=== PATIENT | female | born 1970 | race Caucasian/White ===

== ENCOUNTER 2025-02-23 05:58 | Day surgery (SDC) | payer MEDICARE, MEDICAID, SELFPAY ==
[2025-02-23] VITALS (8 sets, daily range): BP systolic 86–113; BP diastolic 59–78; PULSE 62–93; RESP 16–18; TEMP 36.2–36.9; O2SAT 94–100; BMI 16.5
--- OUTSIDE RECORDS SUMMARY | 2025-02-23 06:07 | XMS RPT_ITS | CCD ---
Author Organization [facility] Care Team Providers Care Curtain Cutter Name Role Phone Ashok Bowdenrell Unavailable Unavailable PROVIDER, UNKNOWN Unavailable Unavailable Kal, Dalton Unavailable Unavailable Kal, Dalton Unavailable Unavailable PROVIDER, UNKNOWN Unavailable Unavailable Kal, Dalton Unavailable Unavailable TRANG RODRÍGUEZ Unavailable Unavailable PROVIDER, UNKNOWN Unavailable Unavailable Kal, Dalton Unavailable Unavailable Kal, Dalton Unavailable Unavailable PROVIDER, UNKNOWN Unavailable Unavailable TRANG RODRÍGUEZ Unavailable Unavailable AVA WADE~[id number] MAURO Attending U AVA Reveles~[id number] MAURO Attending U Dalton Alcantara MD Primary Care Provider Pcp ROCK DUST SPRAYER, No Primary Care Provider Unavailabl e Surendra Miller MD Unavailable [phone] Surendra Miller MD Unavailable [phone] Raheem Sarmiento MD Primary Care Provider SLIME, RAHEEM Referring Unavailable SLIME, RAHEEM Primary Care Unavailable SLIME, RAHEEM Primary Care Unavailable NING BARKSDALE Attending Unavailable CARRIE THOMAS Referring Unavailable ALEJANDRO PALMA Attending Unavailable SELF Referring Unavailable SLIME, RAHEEM Primary Care Unavailable SLIME, RAHEEM Attending Unavailable SLIME, RAHEEM Primary Care Unavailable Jose Manuel BRAYN - Tracy SANTOS Unavailable Jose Manuel BRAYN - Tracy SANTOS Unavailable Sammi Rivera Attending Physician [phone] Kenny Lala Attending Unavailable Sammi Dietrich Attending Unavailable DALTON BOWDEN Attending Unavailable KAL DALTON Referring Unavailable KAL, DALTON Primary Care Unavailable DALTON BOWDEN Attending Unavailable KAL, DALTON Primary Care Unavailable TRACY RICHARD Attending Unavailable KAL, DALTON Primary Care Unavailable KAL, DALTON Primary Care Unavailable KAL, DALTON Primary Care Unavailable JOSE MANUEL, TRACY Attending Unavailable KAL, DALTON Primary Care Unavailable JOSE MANUEL, TRACY Attending Unavailable KAL, DALTON Attending Unavailable KAL, DALTON Primary Care Unavailable KAL, DALTON Primary Care Unavailable JOSE MANUEL, TRACY Attending Unavailable JOSE MANUEL, TRACY Attending Unavailable KAL, DALTON Primary Care Unavailable JOSE MANUEL, TRACY Attending Unavailable KAL, DALTON Primary Care Unavailable JOSE MANUEL, TRACY Attending Unavailable KAL, DALTON Primary Care Unavailable JOSE MANUEL, TRACY Attending Unavailable KAL, DALTON Primary Care Unavailable KAL, DALTON Primary Care Unavailable JOSE MANUEL, TRACY Attending Unavailable JOSE MANUEL, TRACY Attending Unavailable KAL, DALTON Primary Care Unavailable BOESIGER, KATELYNN Attending Unavailable KAL, DALTON Primary Care Unavailable JOSE MANUEL, TRACY Referring Unavailable BOESIGER, KATELYNN Attending Unavailable KAL, DALTON Primary Care Unavailable KAL, DALTON Primary Care Unavailable MARTINEZ TIDWELL Attending Unavailable BOESIGER, KATELYNN Attending Unavailable KAL, DALTON Primary Care Unavailable BOESIGER, KATELYNN Attending Unavailable KAL, DALTON Primary Care Unavailable BOESIGER, KATELYNN Attending Unavailable KAL, DALTON Primary Care Unavailable BOESIGER, KATELYNN Attending Unavailable KAL, DALTON Primary Care Unavailable Allergies Allergy Classification Reported Allergen(s) Allergy Type Date of Onset Reaction(s) Facility Acetaminophen / oxyCODONE (1 source) Acetaminophen / oxyCODONE Drug Allergy 3 Nausea And Vomiting [facility] Aminoketones (1 source) buPROPion Drug Allergy 7 [facility] Amitriptyline (1 source) Amitriptyline Drug Allergy 5 Headache, Nausea Only [facility] Antihistamines (1 source) hydrOXYzine Drug Allergy 3 [facility] NSAIDs (1 source) meloxicam Drug Allergy 4 Headache [facility] Serotonin Reuptake Inhibitors (SSRIs) (1 source) Sertraline Drug Allergy 3 [facility] (20 sources) Amitriptyline; Translations: [Unknown] Drug Allergy 5 Nausea Only, Headache, Other: See Comments [facility] Repository (20 sources) Acetaminophen / oxyCODONE; Translations: [OXYCODONE-ACETAM INOPHEN] Drug Allergy 3 Vomiting, Nausea And Vomiting [facility] (20 sources) buPROPion Drug Allergy 7 Other [facility] Comment on above: mood changes (20 sources) hydrOXYzine Drug Allergy 3 [facility] (20 sources) Sertraline Drug Allergy 3 Other [facility] (10 sources) buPROPion; Translations: [BUPROPION HCL] Drug Allergy 7 Other: See Comments [facility] (20 sources) meloxicam Drug Allergy 4 Headache [facility] (1 source) hydrOXYzine Drug Allergy 5 Other [facility] (1 source) meloxicam Drug Allergy 5 Other [facility] Comment on above: Headache (1 source) oxyCODONE Drug Allergy 5 Vomiting [facility] (1 source) buPROPion Drug Allergy 5 [facility] Repository (1 source) hydrOXYzine Drug Allergy 5 [facility] Repository (1 source) meloxicam Drug Allergy 5 [facility] Repository (1 source) oxyCODONE Drug Allergy 5 [facility] Repository (1 source) Sertraline Drug Allergy 5 [facility] Repository Medications Current Medications Medication Drug Class(es) Dates Sig (Normalized) Sig (Original) [id number] 200 actuat albuterol 0.09 mg/actuat metered dose inhaler (3 sources) beta2-Adrenergic Agonist Start: 07-22-2023 take 2 puff(s) by inhalation every six hours as needed for wheezing albuterol 108 (90 Base) MCG/ACT inhaler Inhale 2 puffs every 6 hours as needed for wheezing. 3 each 0 07/22/2023 Active ALPRAZolam 0.25 mg oral tablet (9 sources) Benzodiazepine Start: 05-31-2024 End: 06-24-2024 take 1 tablet by mouth every eight hours as needed for anxiety and anxiety and anxiety ALPRAZolam (Xanax) 0.25 MG tablet Indications: Anxiety in acute stress reaction Take 1 tablet (0.25 mg) by mouth every 8 hours as needed for anxiety for up to 10 days. 30 tablet 06/14/2024 06/24/2024 Active Start: 05-12-2024 take 1 tablet by yulisa th every eight hours as needed for anxiety and anxiety and anxiety ALPRAZolam (Xanax) 0.25 MG tablet Indications: Anxiety in acute stress reaction Take 1 tablet (0.25 mg) by mouth every 8 hours as needed for anxiety. 30 tablet 05/12/2024 Active azithromycin 250 mg oral tablet (7 sources) Macrolide Antimicrobial Start: 01-12-2016 take 2 tablets by mouth once azithromycin (ZITHROMAX) 250 mg tablet Take 500 mg by mouth one time only. 01/12/2016 Active Budesonide-Formoter ol (20 sources) Corticosteroid, beta2-Adrenergic Agonist Start: 01-06-2025 Budesonide-Formote rol (Symbicort) 160-4.5 mcg/actuation HFA aerosol inhaler Active 2 NMA INHALATION Q12H January 06, 2025 12:00am Complies with drug therapy Start: 10-04-2024 take 2 puff(s) by mo uth twice daily Symbicort 160-4.5 MCG/ACT inhaler Indications: Chronic obstructive pulmonary disease, unspecified COPD type (HCC) Inhale 2 puffs 2 times daily. Rinse mouth with water after use to reduce aftertaste and incidence of candidiasis. Do not swallow. 30.6 g 1 10/04/2024 Active Start: 04-02-2024 End: 10-04-2024 Symbicort 160-4.5 MCG/ACT in haler Indications: Chronic obstructive pulmonary disease, unspecified COPD type (HCC) USE 2 INHALATIONS BY MOUTH IN THE MORNING AND 2 INHALATIONS BY MOUTH IN THE EVENING 30.6 g 1 04/02/2024 10/04/2024 Discontinued (Reorder) Start: 11-26-2023 End: 04-02-2024 take 2 puff(s) by inhalation in the morning Symbicort 160-4.5 MCG/ACT inhaler Indications: Chronic obstructive pulmonary disease, unspecified COPD type (HCC) Inhale 2 puffs in the morning and 2 puffs in the evening. 3 each 1 11/26/2023 04/02/2024 Discontinued Start: 02-04-2023 End: 11-26-2023 take 2 puff(s) by inhalation in the morning Symbicort 160-4.5 MCG/ACT inhaler 2 puffs in the morning and 2 puffs in the evening. 02/04/2023 11/26/2023 Discontinued (Reorder) Start: 10-25-2016 take 1 puff(s) by in halation twice daily budesonide-formoterol (SYMBICORT) 160-4.5 mcg/actuation inhaler Indications: Chronic obstructive pulmonary disease, unspecified COPD type (HCC) Inhale 1 Puff as instructed twice daily. 3 Inhaler 3 10/25/2016 Active Comment on above: Inhale 1 Puff as ins tructed twice daily. Cannabinoids (medical cannabis) (20 sources) Cannabinoids (medical cannabis) Take 1 each by mouth. Active clonazePAM 0.5 mg oral tablet (20 sources) Benzodiazepine Start: 11-18-19 End: 02-12-20 take 0.5 tablet by mouth twice daily as needed for anxiety clonazePAM (KlonoPIN) 0.5 MG tablet Indications: Posttraumatic stress disorder Take 0.5 tablets (0.25 mg) by mouth 2 times daily as needed for anxiety. 30 tablet 01/13/2025 Active Start: 10-18-2024 take 0.5 tablet by m outh twice daily as needed for anxiety clonazePAM (KlonoPIN) 0.5 MG tablet Indications: Posttraumatic stress disorder Take 0.5 tablets (0.25 mg) by mouth 2 times daily as needed for anxiety. 30 tablet 10/18/2024 Active Start: 09-17-2024 take 0.5 tablet by m outh twice daily as needed for anxiety clonazePAM (KlonoPIN) 0.5 MG tablet Indications: Generalized anxiety disorder with panic attacks Take 0.5 tablets (0.25 mg) by mouth 2 times daily as needed for anxiety. Do not start before September 17, 2024. 30 tablet 09/17/2024 Active Start: 08-20-2024 take 0.5 tablet by m outh twice daily as needed for anxiety clonazePAM (KlonoPIN) 0.5 MG tablet Indications: Generalized anxiety disorder with panic attacks Take 0.5 tablets (0.25 mg) by mouth 2 times daily as needed for anxiety. Do not start before August 20, 2024. 30 tablet 08/20/2024 Active Start: 07-23-2024 take 0.5 tablet by m outh twice daily as needed for anxiety clonazePAM (KlonoPIN) 0.5 MG tablet Indications: Generalized anxiety disorder with panic attacks Take 0.5 tablets (0.25 mg) by mouth 2 times daily as needed for anxiety. 30 tablet 07/23/2024 Active Start: 06-25-2024 take 0.5 tablet by m outh twice daily as needed for anxiety clonazePAM (KlonoPIN) 0.5 MG tablet Indications: Generalized anxiety disorder with panic attacks Take 0.5 tablets (0.25 mg) by mouth 2 times daily as needed for anxiety. 30 tablet 06/25/2024 Active DULoxetine 60 mg delayed release oral capsule (8 sources) Serotonin and Norepinephrine Reuptake Inhibitor Start: 10-25-2016 take 1 capsule by mouth once daily DULoxetine (CYMBALTA) 60 mg capsule Indications: Anxiety Take 1 capsule by mouth once daily. 90 capsule 3 10/25/2016 Active Comment on above: Take 1 capsule by mo [facility] once daily. ibuprofen 800 mg oral tablet (8 sources) Nonsteroidal Anti-inflammatory Drug Start: 10-11-2016 take 1 tablet by mouth every eight hours as needed ibuprofen (MOTRIN) 800 mg tablet Take 1 tablet by mouth every 8 hours as needed for Pain. 90 tablet 2 10/11/2016 Active Comment on above: Take 1 tablet by [facility] every 8 hours as needed for Pain. 200 actuat levalbuterol 0.045 mg/actuat metered dose inhaler (20 sources) beta2-Adrenergic Agonist Start: 01-06-2025 Levalbuterol Tartrate 45 mcg/actuation HFA aerosol inhaler Active 2 NMA INHALATION EVERY 4-6 HOURS as needed January 06, 2025 12:00am Complies with drug therapy Start: 07-05-2024 levalbuterol ( Xopenex) 45 MCG/ACT inhaler Indications: Chronic obstructive pulmonary disease, unspecified COPD type (HCC) USE 2 INHALATIONS BY MOUTH EVERY 6 HOURS NEEDED FOR WHEEZING OR SHORTNESS OF BREATH 45 g 2 07/05/2024 Active Start: 02-04-2024 levalbuterol ( Xopenex) 45 MCG/ACT inhaler Indications: Chronic obstructive pulmonary disease, unspecified COPD type (HCC) USE 2 INHALATIONS BY MOUTH EVERY 6 HOURS NEEDED FOR WHEEZING OR SHORTNESS OF BREATH 45 g 2 02/04/2024 Active Start: 07-18-2023 End: 11-26-2023 take 2 puff(s) by inhalation every six hours as needed for wheezing levalbuterol (Xopenex) 45 MCG/ACT inhaler Inhale 2 puffs every 6 hours as needed for wheezing. 15 g 2 10/03/2023 Active Start: 02-03-2023 levalbuterol ( Xopenex) 45 MCG/ACT inhaler Start: 10-25-2016 take 1-2 puff(s) by inhalation every four hours as needed levalbuterol tartrate HFA (XOPENEX HFA) 45 mcg/actuation inhaler Inhale 1-2 Puffs as instructed every 4 hours as needed. 3 Inhaler 3 10/25/2016 Active Comment on above: Inhale 1-2 Puffs as instructed every 4 hours as needed. levothyroxine sodium 0.075 mg oral capsule (20 sources) l-Thyroxine Start: 01-07-20 take 1 capsule by mouth once daily Levothyroxine 75 mcg capsule Active 75 ug PO daily January 06, 2025 12:00am Complies with drug therapy Start: 11-17-2024 End: 12-17-2024 take 1 tablet by mouth once daily before breakfast levothyroxine (Synthroid, Levoxyl) 88 MCG tablet Indications: Acquired hypothyroidism Take 1 tablet (88 mcg) by mouth every morning (before breakfast). 90 tablet 1 12/15/2024 Active Start: 09-01-2024 levothyroxine (Synthroid, Levoxyl) 75 MCG tablet Indications: Acquired hypothyroidism TAKE 1 TABLET BY MOUTH DAILY EXCEPT ON SUNDAYS TAKE 2 TABLETS 72 tablet 09/01/2024 Active Start: 06-16-2023 End: 05-27-2024 levothyroxine (Synthroid, Le voxyl) 75 MCG tablet Indications: Acquired hypothyroidism TAKE 1 TABLET BY MOUTH DAILY EXCEPT ON SUNDAYS TAKE 2 TABLETS 72 tablet 09/01/2024 Active Start: 02-21-2023 End: 04-08-2023 take 1 tablet by mouth once daily levothyroxine (Synthroid, Levoxyl) 75 MCG tablet Indications: Acquired hypothyroidism Take 1 tablet (75 mcg) by mouth daily. 90 tablet 1 04/08/2023 Active MEDICATION, NON-DATABASE (7 sources) MEDICATION, NON- DATABASE Marijuana card-takes pill form Active MEDICATION, NON- DATABASE Marijuana card-takes pill form 0 Active 24 hr metoprolol succinate 50 mg extended release oral tablet (20 sources) beta-Adrenergic Ian Start: 10-25-2016 End: 12-07-2024 take 1 tablet by mouth once daily metoprolol succinate XL (Toprol-XL) 50 MG 24 hr tablet Indications: Atrial tachycardia (HCC) TAKE 1 TABLET BY MOUTH DAILY 100 tablet 1 12/07/2024 Active Comment on above: Take 1 tablet by yulisa th once daily. mirtazapine 15 mg oral tablet (1 source) Start: 02-23-2024 End: 05-23-2024 take 1 tablet by mouth once daily mirtazapine (Remeron) 15 MG tablet Take 1 tablet (15 mg) by mouth Nightly. 90 tablet 02/23/2024 05/23/2024 Active montelukast 10 mg oral tablet (20 sources) Leukotriene Receptor Antagonist Start: 08-16-2016 End: 12-07-2024 take 1 tablet by mouth once daily montelukast (Singulair) 10 MG tablet Indications: Chronic obstructive pulmonary disease, unspecified COPD type (HCC) TAKE 1 TABLET BY MOUTH DAILY 100 tablet 1 12/07/2024 Active Comment on above: Take 1 tablet by yulisa th daily at bedtime. nabumetone 500 mg oral tablet (20 sources) Nonsteroidal Anti-inflammatory Drug Start: 10-25-2024 End: 12-27-2024 take 1 tablet by mouth twice daily as needed for pain nabumetone (Relafen) 500 MG tablet TAKE 1 TABLET BY MOUTH TWICE DAILY NEEDED FOR MILD PAIN (1-3) 60 tablet 12/27/2024 Active Start: 05-03-2024 End: 08-09-2024 take 1 tablet by mouth twice daily nabumetone (Relafen) 500 MG tablet TAKE 1 TABLET BY MOUTH TWICE DAILY 60 tablet 08/09/2024 Active Start: 02-23-2024 End: 03-15-2024 take 1 tablet by mouth twice daily nabumetone (Relafen) 500 MG tablet TAKE 1 TABLET BY MOUTH TWICE DAILY 60 tablet 03/15/2024 Active naproxen 500 mg oral tablet (20 sources) Nonsteroidal Anti-inflammatory Drug Start: 12-01-2015 End: 02-23-2024 take 1 tablet by mouth twice daily at mealtime naproxen (NAPROSYN) 500 mg tablet Take 500 mg by mouth two times a day with meals. 12/01/2015 Active pantoprazole 40 mg delayed release oral tablet (20 sources) Proton Pump Inhibitor Start: 02-03-2023 End: 12-07-2024 take 1 tablet by mouth once daily before breakfast pantoprazole (ProtoNix) 40 MG EC tablet Indications: Gastroesophageal reflux disease, unspecified whether esophagitis present TAKE 1 TABLET BY MOUTH EVERY MORNING BEFORE BREAKFAST 100 tablet 1 12/07/2024 Active PARoxetine hydrochloride 30 mg oral tablet (20 sources) Serotonin Reuptake Inhibitor Start: 10-18-2024 take 1 tablet by mouth once daily in the morning PARoxetine (Paxil) 30 MG tablet Indications: Major depressive disorder, recurrent episode, in partial remission , Posttraumatic stress disorder Take 1 tablet (30 mg) by mouth every morning. 10/18/2024 Active Start: 08-13-2024 take 1 tablet by yulisa th once daily in the morning PARoxetine (Paxil) 30 MG tablet Indications: Major depressive disorder, recurrent episode, moderate (HCC) , Acute stress reaction Take 1 tablet (30 mg) by mouth every morning. 90 tablet 3 08/13/2024 Active Start: 07-09-2024 take 1 tablet by yulisa th once daily in the morning PARoxetine (Paxil) 30 MG tablet Indications: Moderate episode of recurrent major depressive disorder (HCC) , Anxiety in acute stress reaction Take 1 tablet (30 mg) by mouth every morning. 30 tablet 07/09/2024 Active Start: 05-14-2024 End: 07-09-2024 take 1 tablet by mouth once daily in the morning PARoxetine (Paxil) 20 MG tablet Indications: Severe episode of recurrent major depressive disorder, without psychotic features (HCC) , Anxiety in acute stress reaction Take 1 tablet (20 mg) by mouth every morning. 90 tablet 1 05/14/2024 07/09/2024 Discontinued (Reorder) Start: 03-13-2023 End: 01-27-2024 take 1 tablet by mouth once daily in the morning PARoxetine (Paxil) 40 MG tablet TAKE 1 TABLET BY MOUTH EVERY MORNING 90 tablet 1 08/26/2023 Active Start: 02-20-2023 End: 04-21-2023 take 1 tablet by mouth once daily in the morning PARoxetine (Paxil) 20 MG tablet Take 1 tablet (20 mg) by mouth every morning. 30 tablet 1 02/20/2023 03/13/2023 Discontinued (Reorder) prednisoLONE acetate 10 mg/ml ophthalmic suspension (13 sources) Corticosteroid Start: 10-20-2023 prednisoLONE a cetate (PRED FORTE) 1 % ophthalmic suspension Use 1 Drop in the left eye three times a day. 10/20/2023 Active Start: 09-11-2023 End: 11-26-2023 prednisoLONE acetate (Pred-F orte) 1 % ophthalmic suspension 09/11/2023 11/26/2023 Discontinued (Med list cleanup) rosuvastatin calcium 10 mg oral tablet (20 sources) HMG-CoA Reductase Inhibitor Start: 01-25-2025 take 1 tablet by mouth once daily rosuvastatin (Crestor) 10 MG tablet Indications: Mixed hyperlipidemia TAKE 1 TABLET BY MOUTH DAILY 100 tablet 1 01/25/2025 Active Start: 01-06-2025 take 1 tablet by yulisa once daily Rosuvastatin 5 mg tablet Active 5 mg PO daily January 06, 2025 12:00am Complies with drug therapy Start: 11-17-2024 End: 11-17-2024 take 1 tablet by mouth once daily rosuvastatin (Crestor) 10 MG tablet Indications: Mixed hyperlipidemia Take 1 tablet (10 mg) by mouth daily. 90 tablet 1 11/17/2024 Active Start: 06-16-2023 End: 10-04-2024 take 1 tablet by mouth once daily rosuvastatin (Crestor) 5 MG tablet Indications: Mixed hyperlipidemia Take 1 tablet (5 mg) by mouth daily. 90 tablet 1 10/04/2024 Active Start: 02-21-2023 End: 04-08-2023 take 1 tablet by mouth once daily rosuvastatin (Crestor) 5 MG tablet Indications: Mixed hyperlipidemia Take 1 tablet (5 mg) by mouth daily. 90 tablet 1 04/08/2023 Active Sod Sulf-Pot Chloride-Mag Sulf (1 source) Start: 01-12-2025 take 1.479 tablets by mouth once Sod Sulf-Pot Chloride-Mag Sulf (Sutab) 1.479-0.188- 0.225 gram tablet Active 0 PO per package directions 24 0 January 12, 2025 12:00am PO PER PKG DIR Complies with drug therapy tamsulosin hydrochloride 0.4 mg oral capsule (8 sources) alpha-Adrenergic Ian Start: 01-23-2016 take 1 capsule by mouth once daily at bedtime tamsulosin ER (FLOMAX) 0.4 mg cp24 Take 1 capsule by mouth daily at bedtime. 0 01/23/2016 Active Comment on above: Take 1 capsule by mo [facility] daily at bedtime. tiotropium 0.018 mg inhalation powder (8 sources) Anticholinergic Start: 07-26-2016 take 1 capsule by inhalation once daily tiotropium (SPIRIVA WITH HANDIHALER) 18 mcg inhalation capsule Inhale 1 capsule as instructed once daily. 90 capsule 3 07/26/2016 Active Comment on above: Inhale 1 capsule as instructed once daily. traZODone hydrochloride 50 mg oral tablet (8 sources) Serotonin Reuptake Inhibitor Start: 06-17-2016 take 1 tablet by mouth once daily at bedtime traZODone (DESYREL) 50 mg tablet Take 1 tablet by mouth daily at bedtime. 30 tablet 3 06/17/2016 Active Comment on above: Take 1 tablet by yulisa daily at bedtime. Completed/Discontinued Medications Medication Drug Class(es) Dates Sig (Normalized) Sig (Original) calcium chloride 0.0014 meq/ml / potassium chloride 0.004 meq/ml / sodium chloride 0.103 meq/ml / sodium lactate 0.028 meq/ml injectable solution (3 sources) Start: 10-27-2023 End: 10-27-2023 take 50 mL intravenously every hour 50 mL/hr, IntraVENous, Continuous, Starting on Fri10/27/23 at 1145, Preprocedure, Upon admission to sameday - please start iv if patient does not have iv access. Start: 09-22-2023 End: 09-22-2023 lactated Ringer's (LR) infus ion gabapentin 600 mg oral tablet (20 sources) Anti-epileptic Agent Start: 10-01-2024 End: 02-07-2025 take 1 tablet by mouth three times daily gabapentin (Neurontin) 600 MG tablet Indications: Neuropathy TAKE 1 TABLET BY MOUTH 3 TIMES DAILY 270 tablet 12/07/2024 02/07/2025 Discontinued Start: 07-16-2024 take 1 tablet by yulisa th three times daily gabapentin (Neurontin) 600 MG tablet Indications: Neuropathy TAKE 1 TABLET BY MOUTH 3 TIMES DAILY 270 tablet 07/16/2024 Active Start: 09-29-2023 End: 02-23-2024 take 1 tablet by mouth three times daily gabapentin (Neurontin) 600 MG tablet Indications: Neuropathy TAKE 1 TABLET BY MOUTH 3 TIMES DAILY 270 tablet 04/26/2024 Active Start: 07-18-2023 End: 07-28-2023 take 1 tablet by mouth three times daily gabapentin (Neurontin) 600 MG tablet Take 1 tablet (600 mg) by mouth 3 times daily. 270 tablet 0 07/28/2023 Active Start: 05-14-2023 take 1 tablet by yulisa th three times daily gabapentin (Neurontin) 600 MG tablet TAKE 1 TABLET BY MOUTH 3 TIMES DAILY 270 tablet 0 05/14/2023 Active Start: 03-05-2023 take 1 tablet by yulisa th three times daily gabapentin (Neurontin) 600 MG tablet Take 1 tablet (600 mg) by mouth 3 times daily. 270 tablet 0 03/05/2023 Active Start: 12-27-2022 take 1 tablet by yulisa th three times daily gabapentin (Neurontin) 600 MG tablet Take 600 mg by mouth 3 times daily. 0 12/27/2022 Active Start: 10-04-2016 take 2 capsules by m outh three times daily gabapentin (NEURONTIN) 300 mg capsule Indications: Neuropathy Take 2 capsules by mouth three times daily. 180 capsule 2 10/04/2016 Active Comment on above: Take 2 capsules by m outh three times daily. ketorolac tromethamine 5 mg/ml ophthalmic solution (16 sources) Nonsteroidal Anti-inflammatory Drug, Cyclooxygenase Inhibitor Start: 10-27-2023 End: 10-27-2023 1 drop, Left Eye, See admin instructions, Starting on Fri10/27/23 at 1136, Preprocedure, Into the operative eye(s) every 5 minutes for 3 doses starting 30 minutes prior to surgery. Start: 10-20-2023 take 2 drop(s) into the eye(s) four times daily keTORolac (ACULAR) 0.5 % ophthalmic solution Use 2 Drops in the left eye four times daily. 10/20/2023 Active Start: 09-22-2023 End: 09-22-2023 ketorolac (Acular) 0.5 % oph thalmic solution 1 drop Start: 09-11-2023 End: 11-26-2023 ketorolac (Acular) 0.5 % oph thalmic solution 09/11/2023 11/26/2023 Discontinued (Med list cleanup) methylPREDNISolone 4 mg oral tablet (4 sources) Corticosteroid Start: 08-04-2024 End: 09-03-2024 methylPREDNISolone (Medrol Dospak) 4 MG tablets Take as directed on package. 21 tablet 08/04/2024 09/03/2024 Discontinued (Therapy completed) moxifloxacin 5 mg/ml ophthalmic solution (16 sources) Quinolone Antimicrobial Start: 10-27-2023 End: 10-27-2023 1 drop, Left Eye, See admin instructions, Starting on Fri10/27/23 at 1136, Preprocedure, Instill one drop in operative eye every 10 minutes starting 30 min prior to procedure. Start: 10-20-2023 take 3 drop(s) into the eye(s) three times daily moxifloxacin (VIGAMOX) 0.5 % ophthalmic solution Use 3 Drops in the left eye three times a day. 10/20/2023 Active Start: 09-22-2023 End: 09-22-2023 moxifloxacin (Vigamox) 0.5 % ophthalmic solution 1 drop Start: 09-11-2023 End: 11-26-2023 moxifloxacin (Vigamox) 0.5 % ophthalmic solution 09/11/2023 11/26/2023 Discontinued (Med list cleanup) phenylephrine hydrochloride 25 mg/ml ophthalmic solution (3 sources) alpha-1 Adrenergic Agonist Start: 10-27-2023 End: 10-27-2023 1 drop, Left Eye, See admin instructions, Starting on Fri10/27/23 at 1136, Preprocedure, To operative eye for 3 doses, every 10 minutes, starting 30 minutes prior to surgery Start: 09-22-2023 End: 09-22-2023 phenylephrine (Mydfrin) 2.5 % ophthalmic solution 1 drop proparacaine hydrochloride 5 mg/ml ophthalmic solution (3 sources) Local Anesthetic Start: 10-27-2023 End: 10-27-2023 1 drop, Left Eye, See admin instructions, Starting on Fri10/27/23 at 1136,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 79.0-98.0 [facility] Comment on above: Performed By: #### H EMOG, TSH4 ####[address] [place] [address] Platelet mean volume (PMV) 9.1 fL Normal 7.4-10.4 [facility] Comment on above: Performed By: #### H EMOG, TSH4 ####[address] [place] [address] Platelets 316 10*3/uL Normal 140-440 [facility] Comment on above: Performed By: #### H EMOG, TSH4 ####[address] [place] [address] WBC (Leukocytes) 11.9 10*3/uL High 3.6-10.7 [facility] Comment on above: Performed By: #### H EMOG, TSH4 ####[address] [place] [address] Thyroid Stim. Hormoneon 02-05 Thyroid Stim. Hormone 1.830 uU/mL Normal 0.358-3.740 [facility] Comment on above: Performed By: #### H EMOG, TSH4 ####[address] [place] [address] Vital Signs Date Time Vital Sign Value Performing Clinician Chelsea casillas 11-15-2024 08:33-0400 Body height 170.2 cm Tracy Richard APRN - BELT FIXER Work Phone: [facility] [employer] 11-15-2024 08:33-0400 Body mass index (BMI) [Ratio] 16.48 kg/m2 Tracy Richard APRN - BELT [employer]ER Work Phone: [facility] [employer] 11-15-2024 08:33-0400 Body weight 47.72 kg Tracy Richard APRN - BELT [employer]ER Work Phone: [facility] [employer] 11-15-2024 08:33-0400 Diastolic blood pressure 76 mm[Hg] Tracy Richard ROCK [employer]AYER - [employer]T [employer]ER Work Phone: [employer] 11-15-2024 08:33-0400 Heart rate 62 /min Tracy Richard [employer]ER - [employer] Work Phone: [facility] [employer] 11-15-2024 08:33-0400 SaO2% (BldA) [Mass fraction] 98 % Tracy Richard [employer]ER - [employer] Work Phone: [facility] [employer] 11-15-2024 08:33-0400 Systolic blood pressure 116 mm[Hg] Tracy Richard [employer]ER - [employer] Work Phone: [employer] [employer] 10-04-2024 13:38-0400 Body height 170.2 cm Tracy Richard [employer]ER - [employer] Work Phone: [facility] [employer] 10-04-2024 13:38-0400 Body mass index (BMI) [Ratio] 16.41 kg/m2 Tracy Richard [employer] - [employer] Work Phone: [employer] [employer] 10-04-2024 13:38-0400 Body weight 47.54 kg Tracy Richard [employer] - [employer] Work Phone: [employer] [employer] 10-04-2024 13:38-0400 Diastolic blood pressure 77 mm[Hg] Tracy Richard [employer] - [employer] Work Phone: [facility] [employer] 10-04-2024 13:38-0400 Heart rate 51 /min Tracy Richard [employer] - [employer] Work Phone: [facility] [employer] 10-04-2024 13:38-0400 SaO2% (BldA) [Mass fraction] 98 % Tracy Richard [employer] - [employer] Work Phone: [facility] [employer] 10-04-2024 13:38-0400 Systolic blood pressure 121 mm[Hg] Tracy Richard [employer]ER - [employer]T [employer] Work Phone: [facility] [employer] 09-13-2024 07:44-0400 Body height 170.2 cm Alejandro Palma MD Work Phone: [facility] 09-13-2024 07:44-0400 Body mass index (BMI) [Ratio] 16.43 kg/m2 Alejandro Palma MD Work Phone: [facility] 09-13-2024 07:44-0400 Body weight 47.58 kg Alejandro Palma MD Work Phone: [facility] 09-13-2024 07:44-0400 Respiratory rate 18 /min Alejandro Palma MD Work Phone: [facility] 09-03-2024 08:35-0400 Body height 170.2 cm Tracy Richard [employer]ER - [employer] Work Phone: [facility] [employer] 09-03-2024 08:35-0400 Body mass index (BMI) [Ratio] 16.38 kg/m2 Tracy Jose Manuel [employer]ER - [employer] Work Phone: [facility] [employer] 09-03-2024 08:35-0400 Body weight 47.45 kg Tracydesi Richard [employer]ER - [employer] Work Phone: [facility] [employer] 09-03-2024 08:35-0400 Diastolic blood pressure 80 mm[Hg] Tracy Richard [employer] - [employer] Work Phone: [facility] [employer] 09-03-2024 08:35-0400 Heart rate 58 /min Tracy Richard [employer]ER - [employer] Work Phone: [facility] [employer] 09-03-2024 08:35-0400 SaO2% (BldA) [Mass fraction] 97 % Tracy Jose Manuel [employer] - [employer] Work Phone: [facility] [employer] 09-03-2024 08:35-0400 Systolic blood pressure 132 mm[Hg] Tracydesi Richard [employer] - [employer] Work Phone: [facility] [employer] 08-06-2024 10:30-0400 Heart rate 96 /min Tracy Richard [employer] - [employer] Work Phone: [facility] [employer] 08-06-2024 10:04-0400 Body height 170.2 cm Tracy Richard [employer] - [employer] Work Phone: [facility] [employer] 08-06-2024 10:04-0400 Body mass index (BMI) [Ratio] 16.23 kg/m2 Tracy Richard [employer] - [employer] Work Phone: [facility] [employer] 08-06-2024 10:04-0400 Body weight 46.99 kg Tracy Richard [employer]ER - [employer] Work Phone: [facility] [employer] 08-06-2024 10:04-0400 Diastolic blood pressure 63 mm[Hg] Tracy Richard [employer]ER - [employer] Work Phone: [facility] [employer] 08-06-2024 10:04-0400 SaO2% (BldA) [Mass fraction] 98 % Tracy Richard [employer] - [employer] Work Phone: [facility] [employer] 08-06-2024 10:04-0400 Systolic blood pressure 102 mm[Hg] Tracy Richard [employer]ER - [employer] Work Phone: [facility] [employer] 08-04-2024 13:37-0400 Body height 170.2 cm Dalton Bowden MD Work Phone: [facility] [employer] 08-04-2024 13:37-0400 Body mass index (BMI) [Ratio] 16.04 kg/m2 Dalton Bowden MD Work Phone: [facility] [employer] 08-04-2024 13:37-0400 Body temperature 98.71 [degF] Dalton Bowden MD Work Phone: [facility] [employer] 08-04-2024 13:37-0400 Body weight 46.45 kg Dalton Bowden MD Work Phone: [facility] [employer] 08-04-2024 13:37-0400 Diastolic blood pressure 64 mm[Hg] Dalton Bowden MD Work Phone: [facility] [employer] 08-04-2024 13:37-0400 Heart rate 69 /min Dalton Bowden MD Work Phone: [facility] [employer] 08-04-2024 13:37-0400 SaO2% (BldA) [Mass fraction] 96 % Dalton Bowden MD Work Phone: [facility] [employer] 08-04-2024 13:37-0400 Systolic blood pressure 96 mm[Hg] Dalton Bowden MD Work Phone: [facility] [employer] 07-09-2024 07:49-0400 Body height 170.2 cm Tracy Richard [employer]ER - [employer] Work Phone: [facility] [employer] 07-09-2024 07:49-0400 Body mass index (BMI) [Ratio] 16.95 kg/m2 Tracy Richard [employer]ER - [employer] Work Phone: [facility] [employer] 07-09-2024 07:49-0400 Body weight 49.08 kg Tracy Richard [employer]ER - [employer] Work Phone: [facility] [employer] 07-09-2024 07:49-0400 Diastolic blood pressure 68 mm[Hg] Tracy Richard [employer]ER - [employer]T [employer] Work Phone: [facility] [employer] 07-09-2024 07:49-0400 Heart rate 84 /min Tracy Richard [employer]ER - [employer]T [employer] Work Phone: [facility] [employer] 07-09-2024 07:49-0400 SaO2% (BldA) [Mass fraction] 98 % Tracy Richard [employer] - [employer]T [employer] Work Phone: [facility] [employer] 07-09-2024 07:49-0400 Systolic blood pressure 109 mm[Hg] Tracy Richard [employer]ER - [employer] Work Phone: [facility] [employer] 06-11-2024 08:01-0500 Body height 170.2 cm Tracy Richard [employer]ER - [employer] Work Phone: [facility] [employer] 06-11-2024 08:01-0500 Body mass index (BMI) [Ratio] 16.79 kg/m2 Tracy Richard [employer] - [employer] Work Phone: [facility] [employer] 06-11-2024 08:01-0500 Body weight 48.63 kg Tracy Richard [employer] - [employer] Work Phone: [facility] [employer] 06-11-2024 08:01-0500 Diastolic blood pressure 88 mm[Hg] Tracy Richard [employer] - [employer] Work Phone: [facility] [employer] 06-11-2024 08:01-0500 Heart rate 69 /min Tracy Richard [employer] - [employer] Work Phone: [facility] [employer] 06-11-2024 08:01-0500 SaO2% (BldA) [Mass fraction] 98 % Tracy Richard [employer] - [employer] Work Phone: [facility] [employer] 06-11-2024 08:01-0500 Systolic blood pressure 136 mm[Hg] Tracy Richard [employer] - [employer] Work Phone: [facility] [employer] 05-14-2024 09:32-0500 Body height 170.2 cm Tracy Jose Manuel R[employer]ER - [employer] Work Phone: [facility] [employer] 05-14-2024 09:32-0500 Body mass index (BMI) [Ratio] 17.17 kg/m2 Tracy Jose Manuel [employer] - [employer] Work Phone: [facility] [employer] 05-14-2024 09:32-0500 Body weight 49.71 kg Tracy Richard R[employer]ER - [employer]T [employer]ER Work Phone: [employer] 05-14-2024 09:32-0500 Diastolic blood pressure 78 mm[Hg] Tracy Jose Manuel R[employer]ER - [employer] Work Phone: [facility] [employer] 05-14-2024 09:32-0500 Heart rate 62 /min Tracy Richard [employer] - [employer] Work Phone: [facility] [employer] 05-14-2024 09:32-0500 SaO2% (BldA) [Mass fraction] 98 % Tracy Jose Manuel [employer]ER - [employer] Work Phone: [facility] [employer] 05-14-2024 09:32-0500 Systolic blood pressure 125 mm[Hg] Tracy Richard R[employer]ER - [employer] Work Phone: [facility] [employer] 05-12-2024 08:29-0500 Diastolic blood pressure 68 mm[Hg] Tracy Richard [employer] - [employer] Work Phone: [facility] [employer] 05-12-2024 08:29-0500 Systolic blood pressure 126 mm[Hg] Tracy Richard [employer]ER - [employer]T [employer] Work Phone: [facility] [employer] 05-12-2024 08:06-0500 Body height 170.2 cm Tracy Richard [employer]ER - [employer] Work Phone: [facility] [employer] 05-12-2024 08:06-0500 Body mass index (BMI) [Ratio] 17.17 kg/m2 Tracy Richard [employer]ER - [employer] Work Phone: [facility] [employer] 05-12-2024 08:06-0500 Body weight 49.71 kg Tracy Richard R[employer]ER - [employer]T [employer]ER Work Phone: [facility] [employer] 05-12-2024 08:06-0500 Heart rate 92 /min Tracy Richard R[employer]ER - [employer]T [employer] Work Phone: [facility] [employer] 05-12-2024 08:06-0500 SaO2% (BldA) [Mass fraction] 98 % Tracy Richard [employer]ER - [employer]T [employer] Work Phone: [facility] [employer] 05-10-2024 08:12-0500 Body height 170.2 cm Tracy Richard R[employer]ER - [employer] Work Phone: [facility] [employer] 05-10-2024 08:12-0500 Body mass index (BMI) [Ratio] 16.57 kg/m2 Tracy Richard [employer] - [employer] Work Phone: [facility] [employer] 05-10-2024 08:12-0500 Body weight 47.99 kg Tracy Richard [employer]ER - [employer]T [employer] Work Phone: [facility] [employer] 05-10-2024 08:12-0500 Diastolic blood pressure 71 mm[Hg] Tracy Richard [employer] - [employer] Work Phone: [facility] [employer] 05-10-2024 08:12-0500 Heart rate 80 /min Tracy Richard [employer] - [employer] Work Phone: [facility] [employer] 05-10-2024 08:12-0500 SaO2% (BldA) [Mass fraction] 98 % Tracy Richard [employer] - [employer]T [employer]ER Work Phone: [facility] [employer] 05-10-2024 08:12-0500 Systolic blood pressure 118 mm[Hg] Tracy Richard [employer] - [employer] Work Phone: [facility] [employer] 02-23-2024 13:26-0500 Body height 170.2 cm Dalton Bowden MD Work Phone: [facility] [employer] 02-23-2024 13:26-0500 Body mass index (BMI) [Ratio] 16.1 kg/m2 Dalton Bowden MD Work Phone: [facility] [employer] 02-23-2024 13:26-0500 Body weight 46.63 kg Dalton Bowden MD Work Phone: [facility] [employer] 02-23-2024 13:26-0500 Diastolic blood pressure 71 mm[Hg] Dalton Bowden MD Work Phone: [facility] [employer] 02-23-2024 13:26-0500 Heart rate 62 /min Dalton Bowden MD Work Phone: [facility] [employer] 02-23-2024 13:26-0500 SaO2% (BldA) [Mass fraction] 97 % Dalton Bowden MD Work Phone: [facility] [employer] 02-23-2024 13:26-0500 Systolic blood pressure 112 mm[Hg] Dalton Bowden MD Work Phone: [facility] [employer] 11-26-2023 10:35-0400 Body height 170.2 cm Tracy Richard [employer]ER - [employer]ER Work Phone: [facility] [employer] 11-26-2023 10:35-0400 Body mass index (BMI) [Ratio] 15.98 kg/m2 Tracy Richard [employer]ER - [employer]T [employer]ER Work Phone: [facility] [employer] 11-26-2023 10:35-0400 Body weight 46.27 kg Tracy Richard [employer]ER - [employer]T [employer]ER Work Phone: [facility] [employer] 11-26-2023 10:35-0400 Diastolic blood pressure 64 mm[Hg] Tracy Richard [employer]ER - [employer]ER Work Phone: [facility] [employer] [employer] 11-26-2023 10:35-0400 Heart rate 68 /min Tracy Richard ROCK DUST SPRAYER - BELT FIXER Work Phone: [facility] [employer] 11-26-2023 10:35-0400 SaO2% (BldA) [Mass fraction] 96 % Tracy Jose Manuel ROCK DUST SPRAYER - BELT FIXER Work Phone: [facility] [employer] 11-26-2023 10:35-0400 Systolic blood pressure 96 mm[Hg] Tracy Richard ROCK DUST SPRAYER - BELT FIXER Work Phone: [facility] [employer] 11-24-2023 13:47-0400 Body mass index (BMI) [Ratio] 15.89 kg/m2 Ning Mancusoter ROCK DUST SPRAYER.BELT FIXER Work Phone: [facility] 11-24-2023 13:47-0400 Body weight 46.72 kg Ning Mancusoter ROCK DUST SPRAYER.BELT FIXER Work Phone: [facility] 10-27-2023 13:03-0400 Body temperature 97.2 [degF] Rosa Montiel MD Work Phone: [facility] [employer] 10-27-2023 13:03-0400 Diastolic blood pressure 73 mm[Hg] Rosa Montiel MD Work Phone: [facility] [employer] 10-27-2023 13:03-0400 Heart rate 65 /min Rosa Montiel MD Work Phone: [facility] [employer] 10-27-2023 13:03-0400 Respiratory rate 16 /min Rosa Montiel MD Work Phone: [facility] [employer] 10-27-2023 13:03-0400 SaO2% (BldA) [Mass fraction] 100 % Rosa Montiel MD Work Phone: [facility] [employer] 10-27-2023 13:03-0400 Systolic blood pressure 100 mm[Hg] Rosa Montiel MD Work Phone: [facility] [employer] 09-22-2023 08:45-0400 Diastolic blood pressure 83 mm[Hg] Rosa Montiel MD Work Phone: [facility] [employer] 09-22-2023 08:45-0400 Heart rate 50 /min Rosa Montiel MD Work Phone: [facility] [employer] 09-22-2023 08:45-0400 SaO2% (BldA) [Mass fraction] 99 % Rosa Montiel MD Work Phone: [facility] [employer] 09-22-2023 08:45-0400 Systolic blood pressure 110 mm[Hg] Rosa Montiel MD Work Phone: [facility] [employer] 09-22-2023 08:42-0400 Body temperature 97.3 [degF] Rosa Montile MD Work Phone: [facility] [employer] 09-22-2023 08:42-0400 Respiratory rate 16 /min Rosa Montiel MD Work Phone: [facility] [employer] 09-17-2023 10:02-0400 Body height 170.8 cm Dalton Bowden MD Work Phone: [facility] [employer] 09-17-2023 10:02-0400 Body mass index (BMI) [Ratio] 16.73 kg/m2 Dalton Bowden MD Work Phone: [facility] [employer] 09-17-2023 10:02-0400 Body weight 48.81 kg Dalton Bowden MD Work Phone: [facility] [employer] 09-17-2023 10:02-0400 Diastolic blood pressure 69 mm[Hg] Dalton Bowden MD Work Phone: [facility] [employer] 09-17-2023 10:02-0400 Heart rate 90 /min Dalton Bowden MD Work Phone: [facility] [employer] 09-17-2023 10:02-0400 SaO2% (BldA) [Mass fraction] 98 % Dalton Bowden MD Work Phone: [facility] [employer] 09-17-2023 10:02-0400 Systolic blood pressure 125 mm[Hg] Dalton Bowden MD Work Phone: [facility] [employer] 07-28-2023 09:37-0400 Diastolic blood pressure 69 mm[Hg] Dalton Bowden MD Work Phone: [facility] [employer] 07-28-2023 09:37-0400 Heart rate 66 /min Dalton Bowden MD Work Phone: [facility] [employer] 07-28-2023 09:37-0400 Systolic blood pressure 107 mm[Hg] Dalton Bowden MD Work Phone: [facility] [employer] 07-28-2023 09:07-0400 Body height 170.2 cm Dalton Bowden MD Work Phone: [facility] [employer] 07-28-2023 09:07-0400 Body mass index (BMI) [Ratio] 17.13 kg/m2 Dalton Bowden MD Work Phone: [facility] [employer] 07-28-2023 09:07-0400 Body weight 49.62 kg Dalton Bowden MD Work Phone: [facility] [employer] 07-28-2023 09:07-0400 SaO2% (BldA) [Mass fraction] 98 % Dalton Bowden MD Work Phone: [facility] [employer] 03-13-2023 09:22-0500 Body height 170.2 cm Dalton Bowden MD Work Phone: [facility] [employer] 03-13-2023 09:22-0500 Body mass index (BMI) [Ratio] 17.29 kg/m2 Dalton Bowden MD Work Phone: [facility] [employer] 03-13-2023 09:22-0500 Body weight 50.08 kg Dalton Bowden MD Work Phone: [facility] [employer] 03-13-2023 09:22-0500 Diastolic blood pressure 83 mm[Hg] Dalton Bowden MD Work Phone: [facility] [employer] 03-13-2023 09:22-0500 Heart rate 63 /min Dalton Bowden MD Work Phone: [facility] [employer] 03-13-2023 09:22-0500 SaO2% (BldA) [Mass fraction] 97 % Dalton Bowden MD Work Phone: [facility] [employer] 03-13-2023 09:22-0500 Systolic blood pressure 131 mm[Hg] Dalton Bowden MD Work Phone: [facility] [employer] 02-20-2023 13:15-0500 Body height 170.2 cm Dalton Bowden MD Work Phone: [facility] [employer] 02-20-2023 13:15-0500 Body mass index (BMI) [Ratio] 16.88 kg/m2 Dalton Bowden MD Work Phone: [facility] [employer] 02-20-2023 13:15-0500 Body weight 48.9 kg Dalton Bowden MD Work Phone: [facility] 02-20-2023 13:15-0500 Diastolic blood pressure 75 mm[Hg] Dlaton Bowden MD Work Phone: [facility] 02-20-2023 13:15-0500 Heart rate 57 /min Dalton Bowden MD Work Phone: [facility] [employer] 02-20-2023 13:15-0500 SaO2% (BldA) [Mass fraction] 98 % Dalton Bowden MD Work Phone: [facility] 02-20-2023 13:15-0500 Systolic blood pressure 121 mm[Hg] Dalton Bowden MD Work Phone: [facility] Encounters Encounter Date Encounter Type Care Provider Facility Start: 02-23-2025 ambulatory Kenny Erin Facility :[facility] Start: 02-11-2025 End: 02-11-2025 Refill Tracy Richard R[employer] D[employer]ER - BELT FIXER Work Phone: [facility] Comment on above: Posttraumatic stress disorder Start: 02-07-2025 End: 02-07-2025 Refill Sumaya Trentonal [employer] D[employer]ER - BELT FIXER Work Phone: [facility] Comment on above: Neuropathy Start: 02-04-2025 End: 02-04-2025 ambulatory TRACY RICHARD [facility] Start: 02-04-2025 End: 02-04-2025 Office outpatient visit 15 minutes Tracy Richard R[employer] D[employer]ER - BELT FIXER Work Phone: [facility] Comment on above: Moderate episode of recurrent major depressive disorder (CMS/HCC) (Primary Dx); Anxiety disorder, unspecified type; PTSD (post-traumatic stress disorder) Start: 02-04-2025 End: 02-04-2025 Office outpatient visit 25 minutes Tracy Richard [employer] D[employer]ER - BELT FIXER Work Phone: [facility] [place] Comment on above: Moderate episode of recurrent major depressive disorder (CMS/HCC) (Primary Dx); Anxiety disorder, unspecified type; PTSD (post-traumatic stress disorder) Start: 01-17-2025 End: 01-17-2025 Telephone encounter Tracy Richard R[employer] D[employer] SPR[employer]ER - BELT FIXER Work Phone: [facility] Comment on above: Other Start: 01-13-2025 End: 01-13-2025 Refill Tracy Richard [employer] D[employer]ER - BELT FIXER Work Phone: [facility] [place] Comment on above: Posttraumatic stress disorder Start: 01-12-2025 End: 01-12-2025 [facility] Start: 01-12-2025 End: 01-12-2025 ambulatory Sammi Dietrich [facility] Start: 12-26-2024 End: 12-27-2024 Refill Tracy Richard [employer] D[employer]ER - BELT FIXER Work Phone: [facility] [place] Start: 12-15-2024 End: 12-23-2024 Refill Dalton Bowden MD Work Phone: [facility] Comment on above: Posttraumatic stress disorder; Acquired hypothyroidism Start: 12-14-2024 End: 12-14-2024 ambulatory DALTON BOWDEN [facility] Start: 12-06-2024 End: 12-07-2024 Refill Tracy Richard [employer] D[employer] SPR[employer]ER - BELT FIXER Work Phone: [facility] Comment on above: Neuropathy; Gastroesophageal reflux disease, unspecified whether esophagitis present; Chronic obstructive pulmonary disease, unspecified COPD type (HCC); Atrial tachycardia (HCC) Start: 11-19-2024 End: 11-29-2024 ambulatory Jennie Ricardo RN [facility] Communication Start: 11-19-2024 End: 11-29-2024 Patient encounter procedure Jennie Ricardo RN [facility] Start: 11-17-2024 End: 11-17-2024 Refkelly Bowden MD Work Phone: [facility] Comment on above: Mixed hyperlipidemia Start: 11-15-2024 End: 11-15-2024 Assay of hemosiderin, quant Tracy Richard ROCK DUST SPRAYER - BELT FIXER Work Phone: [facility] Start: 11-15-2024 End: 11-15-2024 Patient encounter procedure Tracy Zaid Jose Manuel ROCK DUST SPRAYER - BELT FIXER Work Phone: [facility] Comment on above: Routine general medi farhad examination at health care facility (Primary Dx); Atrial tachycardia (HCC); Chronic obstructive pulmonary disease, unspecified COPD type (HCC); Moderate persistent asthma without complication; Moderate episode of recurrent major depressive disorder (HCC); Anxiety disorder, unspecified type; PTSD (post-traumatic stress disorder); Chronic pain syndrome; Neuropathy; Acquired hypothyroidism; Mixed hyperlipidemia; Screening for diabetes mellitus; Screening for colon cancer; Screening mammogram for breast cancer; Symptoms consistent with irritable bowel syndrome Start: 11-15-2024 End: 11-15-2024 ambulatory TRACY RICHARD [facility] Start: 11-15-2024 End: 11-15-2024 Encounter for general adult medical examination without abnormal findings [facility] Start: 10-29-2024 End: 11-19-2024 Telephone encounter Tracy Zaid Jose Manuel ROCK D[employer]ER - BELT FIXER Work Phone: [facility] Comment on above: Other Start: 10-18-2024 End: 10-18-2024 ambulatory [facility] Start: 10-04-2024 End: 10-04-2024 Office outpatient visit 25 minutes Tracy Richard ROCK DUST SPRAYER - BELT FIXER Work Phone: [facility] Comment on above: Moderate episode of recurrent major depressive disorder (HCC) (Primary Dx); Anxiety disorder, unspecified type; PTSD (post-traumatic stress disorder); Mixed hyperlipidemia; Chronic obstructive pulmonary disease, unspecified COPD type (HCC); Atrial tachycardia (HCC); Gastroesophageal reflux disease, unspecified whether esophagitis present Start: 10-04-2024 End: 10-04-2024 ambulatory [facility] Start: 09-14-2024 End: 09-14-2024 ambulatory [facility] Start: 09-13-2024 End: 09-13-2024 Patient encounter procedure Alejandro Palam MD Work Phone: [facility] Comment on above: Trochanteric bursiti s of right hip (Primary Dx); Hip abductor tendonitis, right Start: 09-13-2024 End: 09-13-2024 ambulatory ALEJANDRO PALMA [facility] Start: 09-03-2024 End: 09-03-2024 Office outpatient visit 25 minutes Tracy Richard ROCK DUST SPR[employer]ER - BELT FIXER Work Phone: [facility] Comment on above: Moderate episode of recurrent major depressive disorder (HCC) (Primary Dx); Anxiety disorder, unspecified type; PTSD (post-traumatic stress disorder) Start: 09-03-2024 End: 09-03-2024 ambulatory TRACY [facility] Start: 08-13-2024 End: 08-13-2024 ambulatory KATELYNN [facility] Start: 08-06-2024 End: 08-06-2024 Office outpatient visit 15 minutes Tracy Richard ROCK DUST SPR[employer]ER - BELT FIXER Work Phone: [facility] Comment on above: Moderate episode of recurrent major depressive disorder (HCC) (Primary Dx); Anxiety disorder, unspecified type; PTSD (post-traumatic stress disorder); Pleurisy Start: 08-06-2024 End: 08-06-2024 Office outpatient visit 25 minutes Tracy Richard ROCK DUST SPRAYER - BELT FIXER Work Phone: [facility] Comment on above: Moderate episode of recurrent major depressive disorder (HCC) (Primary Dx); Anxiety disorder, unspecified type; PTSD (post-traumatic stress disorder); Pleurisy Start: 08-06-2024 End: 08-06-2024 ambulatory TRACYDesi RICHARD [facility] Start: 08-04-2024 End: 08-04-2024 Office outpatient visit 15 minutes Dalton Bowden MD Work Phone: [facility] Comment on above: Pleurisy (Primary Dx ); Viral syndrome Start: 08-04-2024 End: 08-04-2024 ambulatory DALTON BOWDEN [facility] Start: 07-23-2024 End: 07-23-2024 ambulatory [facility] Start: 07-20-2024 End: 08-20-2024 ambulatory Raheem Sarmiento MD Work Phone: [facility] Start: 07-20-2024 End: 08-20-2024 Patient encounter procedure Raheem Sarmiento MD Work Phone: [facility] Start: 07-10-2024 End: 07-10-2024 ambulatory [facility] Start: 07-10-2024 End: 07-10-2024 Patient encounter procedure Sail[facility] Start: 07-09-2024 End: 07-09-2024 ambulatory [facility] Start: 07-09-2024 End: 07-09-2024 Office outpatient visit 25 minutes Tracy Richard ROCK DUST SPRAYER - BELT FIXER Work Phone: [facility] Comment on above: Moderate episode of recurrent major depressive disorder (HCC) (Primary Dx); Anxiety in acute stress reaction; PTSD (post-traumatic stress disorder) Start: 07-09-2024 End: 07-09-2024 ambulatory TRACY RICHARD [facility] Start: 06-25-2024 End: 06-25-2024 [facility] Start: 06-21-2024 End: 06-21-2024 Astrid Bowden MD Work Phone: [facility] Comment on above: Mixed hyperlipidemia Start: 06-17-2024 End: 06-21-2024 Telephone encounter Rajwinder Matt [facility] Comment on above: Referral Start: 06-11-2024 End: 06-11-2024 Office outpatient visit 15 minutes Tracy Richard ROCK DUST SPRAYER - BELT FIXER Work Phone: [facility] Comment on above: Moderate episode of recurrent major depressive disorder (HCC) (Primary Dx); Anxiety in acute stress reaction; PTSD (post-traumatic stress disorder) Start: 06-11-2024 End: 06-11-2024 Office outpatient visit 25 minutes Tracy Richard ROCK DUST SPRAYER - BELT FIXER Work Phone: [facility] [place] Comment on above: Moderate episode of recurrent major depressive disorder (HCC) (Primary Dx); Anxiety in acute stress reaction; PTSD (post-traumatic stress disorder) Start: 06-11-2024 End: 06-11-2024 ambulatory TRACY RICHARD [facility] Start: 05-31-2024 End: 05-31-2024 ambulatory KATELYNN HANSON [facility] Start: 05-27-2024 End: 05-27-2024 Astrid Bowden MD Work Phone: [facility] [employer] Comment on above: Acquired hypothyroid ism Start: 05-14-2024 End: 05-14-2024 Office outpatient visit 25 minutes Tracy Richard ROCK DUST SPRAYER - BELT FIXER [facility] Comment on above: Severe episode of re current major depressive disorder, without psychotic features (HCC) (Primary Dx); Anxiety in acute stress reaction; PTSD (post-traumatic stress disorder) Start: 05-14-2024 End: 05-14-2024 ambulatory [facility] Start: 05-12-2024 End: 05-13-2024 Orders Only Tracy Richard ROCK DUST SPRAYER - BELT FIXER Work Phone: [facility] Start: 05-12-2024 End: 05-12-2024 Office outpatient visit 25 minutes Tracy Richard ROCK DUST SPRAYER - BELT FIXER Work Phone: [facility] Comment on above: Anxiety in acute str ess reaction (Primary Dx); Moderate episode of recurrent major depressive disorder (HCC); PTSD (post-traumatic stress disorder) Start: 05-12-2024 End: 05-12-2024 ambulatory [facility] Start: 05-11-2024 End: 05-12-2024 Telephone encounter Dalton Bowden MD Work Phone: [facility] Comment on above: Release of Informati on Start: 05-10-2024 End: 05-10-2024 Office outpatient visit 15 minutes Tracy Richard ROCK DUST SPRAYER - BELT FIXER Work Phone: [facility] Comment on above: Hip pain, chronic, r ight (Primary Dx); Family history of rheumatoid arthritis Start: 05-10-2024 End: 05-10-2024 ambulatory [facility] Start: 04-15-2024 End: 04-15-2024 Telephone encounter Tammy Carias PA-C Work Phone: [facility] Comment on above: Appointment Start: 04-02-2024 End: 04-02-2024 Refill Tracy Richard ROCK DUST SPRAYER - BELT FIXER Work Phone: [facility] Comment on above: Chronic obstructive pulmonary disease, unspecified COPD type (HCC) Start: 03-31-2024 End: 04-01-2024 Refill Tracy Richard ROCK DUST SPRAYER - BELT FIXER Work Phone: [facility] Comment on above: Mixed hyperlipidemia Start: 03-15-2024 End: 03-15-2024 Subsequent hospital visit by physician Dalton Bowden MD Work Phone: [facility] Comment on above: Right hip pain Start: 03-15-2024 End: 03-15-2024 ambulatory [facility] Start: 03-14-2024 End: 03-15-2024 Refill Dalton Bowden MD Work Phone: [facility] Start: 02-23-2024 End: 02-23-2024 Office outpatient visit 25 minutes Dalton Bowden MD Work Phone: [facility] Comment on above: Neuropathy (Primary Dx); Right hip pain; Weight loss; Primary insomnia; Screening exam for skin cancer; Refused influenza vaccine Start: 02-23-2024 End: 02-23-2024 ambulatory [facility] Start: 02-20-2024 End: 02-20-2024 ambulatory Krystle Copeland RN [facility] Start: 02-20-2024 End: 02-20-2024 Patient encounter procedure Krystle Copeland RN [facility] Start: 02-20-2024 End: 02-20-2024 Refill Tracy Richard APRN - BELT FIXER Work Phone: [facility] Start: 01-27-2024 End: 01-27-2024 Refill Dalton Bowden MD Work Phone: [facility] Start: 12-30-2023 End: 12-30-2023 Refill Dalton Bowden MD Work Phone: [facility] Start: 11-26-2023 End: 11-26-2023 Office outpatient visit 25 minutes Tracy Richard ROCK DUST SPRAYER - BELT FIXER Work Phone: [facility] Comment on above: Moderate episode of recurrent major depressive disorder (HCC) (Primary Dx); Anxiety disorder, unspecified type; Acquired hypothyroidism; Mixed hyperlipidemia; Chronic obstructive pulmonary disease, unspecified COPD type (HCC); Chronic pain syndrome Start: 11-25-2023 End: 11-25-2023 Telephone encounter Raheem Sarmiento MD Work Phone: [facility] Comment on above: Patient Question Start: 11-24-2023 End: 11-24-2023 ambulatory [facility] Facility:[facility] Start: 11-24-2023 End: 11-24-2023 Patient encounter procedure Ning Pinedamilo RAMIREZBELT FIXER Work Phone: [facility] Comment on above: Encounter for screen ing for lung cancer (Primary Dx); Former tobacco use; Chronic obstructive pulmonary disease, unspecified COPD type (HCC) Start: 11-24-2023 End: 11-24-2023 ambulatory [facility] Facility:[facility] Start: 11-13-2023 ambulatory Carrie Abraham am, PA-C Work Phone: [facility] Start: 11-11-2023 Telephone encounter Raheem razo MD Work Phone: [facility] Comment on above: Orders (ORTHO) Start: 11-05-2023 End: 11-05-2023 Patient encounter procedure Raheem Sarmiento MD Work Phone: [facility] Comment on above: Pain of right hip (P rimary Dx); Screening for depression; Chronic obstructive pulmonary disease, unspecified COPD type (HCC); Neuropathy; Other fatigue; Hyperlipidemia, unspecified hyperlipidemia type; Insomnia, unspecified type; Tobacco use Start: 11-05-2023 End: 11-05-2023 Telemedicine consultation with patient Raheem Sarmiento MD Work Phone: [facility] Start: 11-05-2023 End: 11-05-2023 ambulatory [facility] Facility:[facility] Start: 10-27-2023 End: 10-27-2023 Subsequent hospital visit by physician Rosa Montiel MD Work Phone: [facility] Start: 10-21-2023 End: 10-21-2023 Astrid Bowden MD Work Phone: [facility] Start: 10-03-2023 End: 10-03-2023 Refill Dalton Bowden MD Work Phone: [facility] Start: 09-22-2023 End: 09-22-2023 Subsequent hospital visit by physician Rosa Montiel MD Work Phone: [facility] Start: 09-17-2023 End: 09-17-2023 Office outpatient visit 25 minutes Dalton Bowden MD Work Phone: [facility] Comment on above: Chronic obstructive pulmonary disease, unspecified COPD type (HCC) (Primary Dx); Mitral valve prolapse; Neuropathy; Mixed stress and urge urinary incontinence; Acquired hypothyroidism; Mixed hyperlipidemia; Screening for colon cancer; Encounter for screening mammogram for malignant neoplasm of breast Start: 08-26-2023 Refill Dalton Bowden MD Work Phone: [facility] Start: 08-10-2023 Refill Dalton Bowden MD Work Phone: [facility] Start: 07-28-2023 End: 07-28-2023 Office outpatient visit 10 minutes Dalton Bowden MD Work Phone: [facility] Comment on above: Neoplasm of uncertai n behavior of skin of forearm (Primary Dx) Start: 06-03-2023 Telephone encounter David ross MD Work Phone: [facility] Comment on above: Appointment Start: 05-20-2023 Telephone encounter David ross MD Work Phone: [facility] Comment on above: Cancelled Appointmen t Start: 05-08-2023 Telephone encounter Surendra barroso MD Work Phone: [facility] Start: 04-08-2023 Refill Dalton Bowden MD Work Phone: [facility] Communication Comment on above: Mixed hyperlipidemia ; Acquired hypothyroidism Start: 03-21-2023 Refill Dalton Bowden MD Work Phone: [facility] Comment on above: Acquired hypothyroid ism (Primary Dx); Mixed hyperlipidemia Start: 03-13-2023 End: 03-13-2023 Office outpatient visit 25 minutes Dalton Bowden MD Work Phone: [facility] Comment on above: Moderate episode of recurrent major depressive disorder (HCC) (Primary Dx); Anxiety; Acquired hypothyroidism; Mixed hyperlipidemia; Mixed stress and urge urinary incontinence; Screening for colon cancer Start: 03-07-2023 Telephone encounter Leslie Saenz DO Work Phone: [facility] Comment on above: Missed Appointment ( # 1 no show, no letter) Start: 02-20-2023 Orders Only Dalton Bowden MD Work Phone: [facility] Start: 02-20-2023 End: 02-20-2023 Initial preventive medicine new patient 40-64yrs Dalton Bowden MD Work Phone: [facility] Comment on above: Annual physical exam (Primary Dx); Neuropathy; Chronic obstructive pulmonary disease, unspecified COPD type (HCC); Weight loss; Anxiety; Tobacco use; Screening for deficiency anemia; Screening for diabetes mellitus; Screening for lipid disorders Start: 02-20-2023 End: 02-20-2023 Patient encounter procedure Dalton Bowden MD Work Phone: [facility] Work Phone: Start: 10-04-2019 Patient encounter procedure [id number] MAURO [facility] Start: 08-31-2019 Patient encounter procedure [id number] [facility] Start: 03-26-2017 Ambulatory [facility] Start: 02-20-2017 Ambulatory TRANG RODRÍGUEZ [facility] Start: 12-12-2016 Ambulatory Dalton Bowden [facility] Start: 12-02-2016 Ambulatory Dalton Bowden [facility] Procedures Date Procedure Procedure Detail Performing Clinician Start: 12-14-2024 Lipid 1995 panel - Serum or Plasma Dalton Bowden MD Work Phone: Start: 12-14-2024 Thyrotropin [Units/volume] in Serum or Plasma Dalton Bowden MD Work Phone: Start: 11-15-2024 Lipid 1995 panel - Serum or Plasma Dalton Bowden MD Work Phone: Start: 11-15-2024 Thyrotropin [Units/volume] in Serum or Plasma Dalton Bowden MD Work Phone: Start: 09-13-2024 Radex hip unilateral with pelvis 1 view Alejandro Palma MD Work Phone: Start: 06-11-2024 Follow-up visit Follow-up TRACY RICHARD Start: 05-12-2024 C-reactive protein Tracy Richard ROCK DUST SPRAYER - BELT FIXER Work Phone: Start: 05-12-2024 Complete blood count with white cell differential, automated Tracy Richard ROCK DUST SPRAYER - BELT FIXER Work Phone: Start: 05-12-2024 Comprehensive metabolic panel Tracy Richard ROCK DUST SPRAYER - BELT FIXER Work Phone: Start: 11-24-2023 Lipid 1996 panel - Serum or Plasma Ning Barksdale ROCK DUST SPRAYER.BELT FIXER Work Phone: Start: 11-24-2023 Thyrotropin [Units/volume] in Serum or Plasma Tracy Richard ROCK DUST SPRAYER - BELT FIXER Work Phone: Start: 11-11-2023 Adult depression screening assessment Raheem Sarmiento MD Work Phone: Start: 03-21-2023 Lipid 1996 panel - Serum or Plasma Dalton Bowden MD Work Phone: Start: 03-21-2023 Thyrotropin [Units/volume] in Serum or Plasma Dalton Bowden MD Work Phone: Start: 02-20-2023 Comprehensive metabolic panel Dalton Bowden MD Work Phone: Start: 02-20-2023 Lipid panel Dalton Bowden MD Work Phone: Start: 02-20-2023 End: 02-20-2023 Thyrotropin [Units/volume] in Serum or Plasma Dalton Bowden MD Work Phone: Start: 02-20-2023 Lipid 1996 panel - Serum or Plasma Dalton Bowden MD Work Phone: Start: 12-06-2016 H/O: hysterectomy History of hysterectomy Dalton Portillo Work Phone: Start: 03-06-2016 Lipid 1996 panel - Serum or Plasma Leslieharlan Saenz Work Phone: Plan of Treatment Date Care Activity Detail Author Start: 11-23-2047 RSV Immunization for Adults (1 - 1-dose 75+ series) RSV Immunization for Adults (1 - 1-dose 75+ series) [facility] Start: 2032 RSV Immunization aged 60 or older (1 - 1-dose 60+ series) RSV Immunization aged 60 or older (1 - 1-dose 60+ series) [facility] Start: 12-14-2029 Lipid panel Lipid Panel [facility] Start: 11-15-2029 Lipid panel Lipid Panel [facility] Start: 11-23-2028 Lipid panel Lipid Screening [facility] Start: 03-21-2028 Lipid panel [facility] Start: 02-21-2028 Lipid panel Lipid Panel [facility] Start: 05-12-2027 Diabetes Screening Diabetes Screening [facility] Start: 11-23-2026 Diabetes Screening Diabetes Screening [facility] Start: 06-29-2026 DTaP/Tdap/Td Vaccines (2 - Td or Tdap) DTaP/Tdap/Td Vaccines (2 - Td or Tdap) [facility] Start: 06-29-2026 Urine microalbumin profile DTaP,Tdap,Td Vaccine (2 - Td or Tdap) [facility] Start: 02-20-2026 Diabetes Screening Diabetes Screening [facility] Start: 12-14-2025 Thyroid stimulating hormone measurement TSH Level [facility] Start: 11-15-2025 Thyroid stimulating hormone measurement TSH Level [facility] Start: 05-09-2025 End: 05-09-2025 Patient encounter procedure 05/09/2025 9:00 AM EST [facility] [address] [facility] [place] [address] Tracy Richard, ROCK DUST SPRAYER - BELT FIXER [address] [facility] [place] [address] [facility] Start: 05-07-2025 Hepatitis B Vaccines (1 of 3 - 19+ 3-dose series) Hepatitis B Vaccines (1 of 3 - 19+ 3-dose series) [facility] Comment on above: Postponed from 11/23/1991 (Patient Refus ed) Start: 05-07-2025 Hepatitis C screening Hepatitis C Screening [facility] Comment on above: Postponed from 1990 (Patient Refus ed) Start: 05-07-2025 HIV screening HIV Screening [facility] Comment on above: Postponed from 1972 (Patient Refus ed) Start: 05-07-2025 Pneumococcal Vaccine: 50+ Years (1 of 2 - PCV) Pneumococcal Vaccine: 50+ Years (1 of 2 - PCV) [facility] Comment on above: Postponed from 11/23/1991 (Patient Refus ed) Start: 04-05-2025 Depression Monitoring Depression Monitoring [facility] Start: 03-06-2025 Depression Monitoring Depression Monitoring [facility] Start: 02-19-2025 COVID-19 Vaccine ( season) COVID-19 Vaccine ( season) [facility] Comment on above: Postponed from 12/07/2023 (Patient Refus ed) Start: 02-04-2025 End: 02-04-2025 Telemedicine consultation with patient 02/04/2025 1:00 PM EDT [facility] [address] [facility] [place] [address] Tracy Richard, ROCK DUST SPRAYER - BELT FIXER [address] [facility] [place] [address] [facility] Start: 01-08-2025 Depression Monitoring Depression Monitoring [facility] Start: 12-14-2024 End: 12-14-2024 Clinical Support 12/14/2024 8:30 AM EDT Clinical Support [address] [place] [address] [facility] Start: 12-12-2024 Depression Monitoring Depression Monitoring [facility] Start: 12-06-2024 COVID-19 Vaccine () COVID-19 Vaccine () [facility] Start: 12-06-2024 Influenza vaccination [facility] Start: 11-23-2024 Diabetes mellitus screening Diabetes Screening [facility] Start: 11-23-2024 Thyroid stimulating hormone measurement TSH Level [facility] Start: 11-15-2024 End: 11-15-2025 Comprehensive metabolic 1998 panel - Serum or Plasma Comprehensive metabolic panel Lab Routine Atrial tachycardia (HCC) Chronic obstructive pulmonary disease, unspecified COPD type (HCC) Moderate persistent asthma without complication Moderate episode of recurrent major depressive disorder (HCC) Anxiety disorder, unspecified type PTSD (post-traumatic stress disorder) Chronic pain syndrome Neuropathy Acquired hypothyroidism Mixed hyperlipidemia Symptoms consistent with irritable bowel syndrome Screening for diabetes mellitus Expected: 11/15/2024 (Approximate), Expires: 11/15/2025 [facility] Comment on above: Expected: 11/15/2024 (Approximate), Expi res: 11/15/2025 Start: 11-15-2024 End: 01-15-2026 DBT Breast - bilateral screening Bilateral screening mammogram with tomosynthesis Imaging Routine Screening mammogram for breast cancer Expected: 11/15/2024, Expires: 01/15/2026 [facility] Comment on above: Expected: 11/15/2024, Expires: Start: 11-15-2024 End: 11-15-2025 Lipid 1996 panel - Serum or Plasma Lipid panel Lab Routine Mixed hyperlipidemia Expected: 11/15/2024 (Approximate), Expires: 11/15/2025 [facility] Comment on above: Expected: 11/15/2024 (Approximate), Expi res: 11/15/2025 Start: 11-15-2024 End: 11-15-2025 Thyrotropin [Units/volume] in Serum or Plasma TSH Lab Routine Acquired hypothyroidism Expected: 11/15/2024 (Approximate), Expires: 11/15/2025 [facility] Work Phone: Comment on above: Expected: 11/15/2024 (Approximate), Expi res: 11/15/2025 Start: 11-15-2024 End: 11-15-2024 Patient encounter procedure 11/15/2024 8:40 AM EDT Office Visit [facility] [address] [place] [address] [place] [address] Tracy Richard, ROCK DUST SPRAYER - BELT FIXER [address] [facility] [address] [place], [place] [id number] [facility] Start: 11-11-2024 Depression Monitoring Depression Monitoring [facility] Start: 11-10-2024 Depression Screening Depression Screening [facility] Start: 11-07-2024 Depression Monitoring Depression Monitoring [facility] Start: 11-04-2024 Annual PCP Team Chronic Disease Visit Annual PCP Team Chronic Disease Visit [facility] Start: 10-04-2024 Influenza vaccination Influenza Vaccine (#1) [facility] Comment on above: Postponed from 12/07/2023 (Patient Refus ed) Start: 09-03-2024 End: 09-03-2024 Patient encounter procedure 09/03/2024 8:40 AM EDT Office Visit [facility] [address] [place] [address] [place] [address] Tracy Richard, ROCK DUST SPRAYER - BELT FIXER [address] [facility] [address] [place], [place] [id number] [facility] Start: 08-23-2024 End: 08-23-2024 Patient encounter procedure 08/23/2024 10:30 AM EDT Office Visit [facility] [address] [place] [address] Juan Pablo Schwarz R, DO [address] [place], [place] [id number] rt hip pain [facility] Comment on above: rt hip pain Start: 08-22-2024 Examination of skin Derm Melanoma Skin Check [facility] Start: 08-19-2024 Depression Monitoring Depression Monitoring [facility] Start: 08-06-2024 End: 08-06-2024 Patient encounter procedure 08/06/2024 10:20 AM EDT [facility] [address] [place] [address] [place] [address] Tracy Richard, ROCK DUST SPRAYER - BELT FIXER [address] [facility] [place] [address] [facility] [place] Start: 07-09-2024 End: 07-09-2024 Patient encounter procedure 07/09/2024 8:00 AM EDT Office Visit [facility] [address] [place] [address] [place] [address] Tracy Richard, ROCK DUST SPRAYER - BELT FIXER [address] [facility] [place] [address] [place] [address] [facility] [place] Start: 06-22-2024 End: 06-22-2024 Patient encounter procedure 06/22/2024 1:20 PM EDT Office Visit [facility] [place] [address] [facility] [address] [place] [address] Carrie Mark PA-C [address] [facility] [address] [place] [address] [facility] [place] Start: 06-11-2024 End: 06-11-2024 Patient encounter procedure 06/11/2024 8:20 AM EST Office Visit [facility] [place] [address] [place] [address] [place] [address] Tracy Richard, ROCK DUST SPRAYER - BELT FIXER [address] [facility] [place] [address] [facility] Start: 05-28-2024 Depression Monitoring Depression Monitoring [facility] Start: 05-14-2024 End: 05-14-2024 Patient encounter procedure 05/14/2024 10:00 AM EST [facility] [address] [facility] [place] [address] Tracy Richard, ROCK DUST SPRAYER - BELT FIXER [address] [facility] [address] [place] [address] [facility] Start: 05-10-2024 End: 05-10-2025 C reactive protein [Mass/volume] in Serum or Plasma C-reactive protein Lab Routine Hip pain, chronic, right Family history of rheumatoid arthritis Expected: 05/10/2024 (Approximate), Expires: 05/10/[address] [facility] [employer] Comment on above: Expected: 05/10/2024 (Approximate), Expi res: 05/10/2025 Start: 05-10-2024 End: 05-10-2025 CBC W Auto Differential panel - Blood CBC auto differential Lab Routine Hip pain, chronic, right Family history of rheumatoid arthritis Expected: 05/10/2024 (Approximate), Expires: 05/10/[address] [facility] [employer] Comment on above: Expected: 05/10/2024 (Approximate), Expi res: 05/10/2025 Start: 05-10-2024 End: 05-10-2025 Comprehensive metabolic 1998 panel - Serum or Plasma Comprehensive metabolic panel Lab Routine Hip pain, chronic, right Family history of rheumatoid arthritis Expected: 05/10/2024 (Approximate), Expires: 05/10/[address] [facility] [employer] Comment on above: Expected: 05/10/2024 (Approximate), Expi res: 05/10/2025 Start: 05-10-2024 End: 05-10-2025 Erythrocyte sedimentation rate Sedimentation rate, automated Lab Routine Hip pain, chronic, right Family history of rheumatoid arthritis Expected: 05/10/2024 (Approximate), Expires: 05/10/[address] [facility] [employer] Comment on above: Expected: 05/10/2024 (Approximate), Expi res: 05/10/2025 Start: 05-10-2024 End: 05-10-2025 Nuclear Ab [Titer] in Serum by Immunofluorescence RIYA Lab Routine Hip pain, chronic, right Family history of rheumatoid arthritis Expected: 05/10/2024 (Approximate), Expires: 05/10/2025 [facility] Work Phone: Comment on above: Expected: 05/10/2024 (Approximate), Expi res: 05/10/2025 Start: 05-10-2024 End: 05-10-2025 Reagin Ab [Presence] in Serum by RPR RPR Lab Routine Hip pain, chronic, right Family history of rheumatoid arthritis Expected: 05/10/2024 (Approximate), Expires: 05/10/2025 [facility] Comment on above: Expected: 05/10/2024 (Approximate), Expi res: 05/10/2025 Start: 05-10-2024 End: 05-10-2025 Rheumatoid factor [Units/volume] in Serum or Plasma Rheumatoid factor Lab Routine Hip pain, chronic, right Family history of rheumatoid arthritis Expected: 05/10/2024 (Approximate), Expires: 05/10/2025 [facility] Comment on above: Expected: 05/10/2024 (Approximate), Expi res: 05/10/2025 Start: 05-10-2024 End: 05-10-2024 Patient encounter procedure 05/10/2024 8:40 AM EST Office Visit [facility] [place] [address] [place] [address] [place] [address] Tracy Richard, WARD - BELT FIXER [address] [place] [address] [facility] Start: 04-15-2024 End: 04-15-2024 Patient encounter procedure 04/15/2024 1:00 PM EST Office Visit [facility] [place] [address] [place] [address] [place] [phone] Elida Marcelo DO [address] [place] [address] [place] [address] [facility] [place] Start: 04-08-2024 End: 04-08-2024 Patient encounter procedure 04/08/2024 11:00 AM EST Office Visit [facility] [place] [address] [place] [address] [place] [phone] Elida Marcelo DO [address] [place] [address] [place] [address] [facility] [place] Start: 04-07-2024 Medicare Advantage Annual Wellness Visit Medicare Advantage Annual Wellness Visit [facility] Start: 03-21-2024 Thyroid stimulating hormone measurement TSH Level [facility] Start: 03-19-2024 End: 03-19-2024 Patient encounter procedure [facility] Start: 03-17-2024 Depression Monitoring Depression Monitoring [facility] Start: 03-13-2024 COVID-19 Vaccine (#1) COVID-19 Vaccine (#1) [facility] Comment on above: Postponed from 05/25/1973 (Patient Refus ed) Start: 03-13-2024 COVID-19 Vaccine ( season) COVID-19 Vaccine ( season) [facility] Comment on above: Postponed from 12/06/2022 (Patient Refus ed) Start: 03-13-2024 Hepatitis B Vaccines (1 of 3 - 19+ 3-dose series) Hepatitis B Vaccines (1 of 3 - 19+ 3-dose series) [facility] Comment on above: Postponed from 11/23/1991 (Patient Refus ed) Start: 03-13-2024 Hepatitis B Vaccines (1 of 3 - 3-dose series) Hepatitis B Vaccines (1 of 3 - 3-dose series) [facility] Comment on above: Postponed from 1972 (Patient Refus ed) Start: 03-13-2024 Hepatitis C screening Hepatitis C Screening [facility] Comment on above: Postponed from 1990 (Patient Refus ed) Start: 03-13-2024 HIV screening HIV Screening [facility] Comment on above: Postponed from 1972 (Patient Refus ed) Start: 03-13-2024 Pneumococcal Vaccine: Pediatrics (0 to 5 Years) and At-Risk Patients (6 to 64 Years) (1 - PCV) Pneumococcal Vaccine: Pediatrics (0 to 5 Years) and At-Risk Patients (6 to 64 Years) (1 - PCV) [facility] Comment on above: Postponed from 1978 (Patient Refus ed) Start: 03-13-2024 Pneumococcal Vaccine: Pediatrics (0 to 5 Years) and At-Risk Patients (6 to 64 Years) (1 of 2 - PCV) Pneumococcal Vaccine: Pediatrics (0 to 5 Years) and At-Risk Patients (6 to 64 Years) (1 of 2 - PCV) [facility] Comment on above: Postponed from 1978 (Patient Refus ed) Start: 02-23-2024 End: 02-22-2025 XR Hip - right 3 Views XR hip right 2 or 3 views Imaging Routine Right hip pain Expected: 02/23/2024, Expires: 02/22/2025 [facility] Work Phone: Comment on above: Expected: 02/23/2024, Expires: Start: 02-23-2024 End: 02-23-2024 Patient encounter procedure 02/23/2024 1:30 PM EST Office Visit [address] [address] Dalton Bowden MD [address] [place] [address] [place] [address] Refused influenza vaccine [facility] Comment on above: Refused influenza vaccine Start: 02-21-2024 Thyroid stimulating hormone measurement TSH Level [facility] Start: 02-03-2024 End: 02-03-2024 Patient encounter procedure 02/03/2024 11:20 AM EDT Office Visit [facility] [address] [place] [address] Raheem Sarmiento MD [address] [facility] [address] [place] [address] 3 month follow up must be in office/Ok to double book per Dr Pratt [facility] Comment on above: 3 month follow up must be in office/Ok t o double book per Dr Pratt Start: 01-26-2024 End: 01-26-2024 Patient encounter procedure 01/26/2024 8:20 AM EDT Appointment Cat Scan [address] [place] [address] LUNG SCREENING Cat Scan Comment on above: LUNG SCREENING Start: 01-20-2024 End: 01-20-2024 Patient encounter procedure 01/20/2024 8:40 AM EDT Office Visit [facility] [address] [facility] [address] [place] [address] Deann Mayo PA-C [address] [facility] [address] [place] [address] 3 month follow up [facility] Comment on above: 3 month follow up Start: 01-13-2024 End: 01-13-2024 Patient encounter procedure 01/13/2024 10:20 AM EDT Office Visit [facility] [address] [facility] [place] [address] PodlogKrystle xavier APRN.BELT FIXER [address] [facility] [place] [address] [facility] Comment on above: Establish Care Start: 12-07-2023 COVID-19 Vaccine ( season) COVID-19 Vaccine ( season) [facility] Start: 12-07-2023 COVID-19 Vaccine ( season) COVID-19 Vaccine ( season) [facility] Start: 12-07-2023 Influenza vaccination [facility] Start: 11-24-2023 End: 11-24-2023 Patient encounter procedure 11/24/2023 2:30 PM EDT Office Visit Pulmonary Medicine [address] [place] [address] Ning Barksdale APRN.BELT FIXER [address] [place] [address] Pain in my lung [facility] Comment on above: Pain in my lung Start: 11-18-2023 End: 11-18-2023 ambulatory 11/18/2023 8:00 AM EDT Results Only [facility] Draw Station [address] [place] [address] [facility] Station Start: 11-11-2023 End: 02-10-2024 CBC W Auto Differential panel - Blood COMPLETE BLOOD COUNT AND DIFFERENTIAL Lab Routine Other fatigue Expected: 11/11/2023, Expires: 02/10/2024 [facility] Work Phone: Comment on above: Expected: 11/11/2023, Expires: Start: 11-11-2023 End: 02-10-2024 Comprehensive metabolic 2000 panel - Serum or Plasma COMPREHENSIVE METABOLIC PANEL Lab Routine Other fatigue Expected: 11/11/2023, Expires: 02/10/2024 [facility] Comment on above: Expected: 11/11/2023, Expires: Start: 11-11-2023 End: 02-10-2024 Lipid 1996 panel - Serum or Plasma LIPID PANEL BASIC Lab Routine Hyperlipidemia, unspecified hyperlipidemia type Expected: 11/11/2023, Expires: 02/10/2024 [facility] Comment on above: Expected: 11/11/2023, Expires: Start: 11-11-2023 End: 02-10-2024 Thyrotropin [Units/volume] in Serum or Plasma THYROID STIMULATING HORMONE Lab Routine Other fatigue Expected: 11/11/2023, Expires: 02/10/2024 [facility] Comment on above: Expected: 11/11/2023, Expires: Start: 10-27-2023 End: 10-27-2023 Admission to same day surgery center 10/27/2023 12:30 PM EDT - 10/27/2023 1:15 PM EDT Surgery [facility] [address] [place] [address] Rosa Montiel MD [address] [place] [address] PHACOEMULSIFICATION WITH INTRAOCULAR LENS INSERTION LEFT EYE [29928 (CPT )] [facility] Comment on above: PHACOEMULSIFICATION WITH INTRAOCULAR EVELIA S INSERTION LEFT EYE [16722 (CPT )] Start: 10-27-2023 Subsequent hospital visit by physician 10/27/2023 12:30 PM EDT Hospital Encounter [facility] [address] [place] [address] Rosa Montiel MD [address] [place] [address] [facility] Start: 10-27-2023 End: 10-27-2023 Xcapsl ctrc rmvl insj io lens prosth w/o ecp [facility] Start: 10-27-2023 End: 10-27-2023 Admission to same day surgery center 10/27/2023 8:45 AM EDT - 10/27/2023 9:30 AM EDT Surgery [facility] [address] [place] [address] Rosa Montiel MD [address] [place] [address] PHACOEMULSIFICATION WITH INTRAOCULAR LENS INSERTION LEFT EYE [89263 (CPT )] [facility] [place] Comment on above: PHACOEMULSIFICATION WITH INTRAOCULAR EVELIA S INSERTION LEFT EYE [59958 (CPT )] Start: 10-27-2023 Subsequent hospital visit by physician 10/27/2023 8:45 AM EDT Hospital Encounter [facility] [address] [place] [address] Rosa Montiel MD [address] [place], [place] [address] [facility] Start: 10-27-2023 End: 10-27-2023 Xcapsl ctrc rmvl insj io lens prosth w/o ecp PHACOEMULSIFICATION WITH INTRAOCULAR LENS INSERTION Combined forms of age-related cataract of left eye 10/27/2023 8:45 AM EDT [facility] Start: 10-10-2023 End: 10-10-2023 Patient encounter procedure 10/10/2023 10:00 AM EDT Appointment [facility] [address] [place] [phone] Dalton Bowden MD [address] [place] [address] [place] [address] [facility] Start: 10-05-2023 Influenza vaccination Influenza Vaccine (#1) [facility] Comment on above: Postponed from 12/06/2022 (Patient Refus ed) Start: 10-03-2023 End: 10-03-2023 Patient encounter procedure 10/03/2023 10:00 AM EDT Appointment [facility] [address] [place] [phone] Dalton Bowden MD [address] [place] [address] [place], [place] [phone] [facility] Start: 09-22-2023 End: 09-22-2023 Admission to same day surgery center 09/22/2023 8:00 AM EDT - 09/22/2023 8:45 AM EDT Surgery [facility] [address] [facility] [address] [place] [address] Rosa Montiel MD [address] [facility] [address] [place] [address] PHACOEMULSIFICATION WITH INTRAOCULAR LENS INSERTION RIGHT EYE [22640 (CPT )] [facility] [place] Comment on above: PHACOEMULSIFICATION WITH INTRAOCULAR EVELIA S INSERTION RIGHT EYE [24538 (CPT )] Start: 09-22-2023 End: 09-22-2023 Anesthesia consultation 09/22/2023 8:00 AM EDT Anesthesia Event [facility] [place] [address] [place] [address] [place] [phone] Carlos Pascual PA-C [address] [place] [address] [facility] [place] Start: 09-22-2023 Subsequent hospital visit by physician [facility] Start: 09-22-2023 End: 09-22-2023 Xcapsl ctrc rmvl insj io lens prosth w/o ecp PHACOEMULSIFICATION WITH INTRAOCULAR LENS INSERTION Combined forms of age-related cataract of right eye 09/22/2023 8:00 AM EDT [facility] Start: 09-17-2023 End: 11-15-2024 DBT Breast - bilateral screening Bilateral screening mammogram with tomosynthesis Imaging Routine Encounter for screening mammogram for malignant neoplasm of breast Expected: 09/17/2023, Expires: 11/15/2024 [facility] Comment on above: Expected: 09/17/2023, Expires: Start: 09-15-2023 End: 09-15-2023 Admission to establishment 09/15/2023 10:30 AM EDT Pre-Admission Testing [facility] Pre-Admit Testing [address] [place] [phone] [facility] Pre-Admit Testing Start: 09-12-2023 End: 09-12-2023 Patient encounter procedure 09/12/2023 9:45 AM EDT Office Visit [place] [address] [facility] [place] [address] [place] [address] Dalton Bowden MD [address] [place] [address] [place] [address] [facility] Start: 08-21-2023 Depression Monitoring Depression Monitoring [facility] Start: 05-16-2024 Depresssion Monitoring Depresssion Monitoring [facility] Start: 08-12-2023 End: 08-12-2023 Admission to establishment 08/12/2023 11:30 AM EDT Pre-Admission Testing [facility] Pre-Admit Testing [address] [place] [id number] Rosa Montiel MD [address] [place] [address] [facility] Pre-Admit Testing Start: 07-16-2023 End: 07-16-2023 Patient encounter procedure [facility] Start: 07-07-2023 End: 07-07-2023 Admission to establishment 07/07/2023 10:00 AM EDT Pre-Admission Testing [facility] Pre-Admit Testing [address] [place] [id number] [facility] Pre-Admit Testing Start: 05-20-2023 End: 05-20-2023 Patient encounter procedure 05/20/2023 1:45 PM EST Office Visit [facility] [address] [place] [phone] David Ann MD [address] [place] [address] [facility] Start: 04-07-2023 Medicare Advantage Annual Wellness Visit Medicare Advantage Annual Wellness Visit [facility] Start: 03-21-2023 End: 03-21-2023 Clinical Support 03/21/2023 8:30 AM EST Clinical Support [facility] [address] [place] [address] [place] [address] [facility] Start: 03-13-2023 End: 03-13-2023 Patient encounter procedure 03/13/2023 10:00 AM EST Office Visit [facility] [address] [place] [address] [place] [address] Dalton Bowden MD [address] [place] [address] [facility] Start: 02-20-2023 End: 02-21-2024 CBC panel - Blood by Automated count CBC Lab Routine Weight loss Screening for deficiency anemia Expected: 02/20/2023 (Approximate), Expires: 02/21/2024 [facility] Comment on above: Expected: 02/20/2023 (Approximate), Expi res: 02/21/2024 Start: 02-20-2023 End: 02-21-2024 Comprehensive metabolic 1998 panel - Serum or Plasma Comprehensive metabolic panel Lab Routine Screening for diabetes mellitus Expected: 02/20/2023 (Approximate), Expires: 02/21/2024 [facility] Work Phone: Comment on above: Expected: 02/20/2023 (Approximate), Expi res: 02/21/2024 Start: 02-20-2023 End: 02-21-2024 Lipid 1996 panel - Serum or Plasma Lipid panel Lab Routine Screening for lipid disorders Expected: 02/20/2023 (Approximate), Expires: 02/21/2024 [facility] Comment on above: Expected: 02/20/2023 (Approximate), Expi res: 02/21/2024 Start: 02-20-2023 End: 02-21-2024 Thyrotropin [Units/volume] in Serum or Plasma TSH Lab Routine Weight loss Expected: 02/20/2023 (Approximate), Expires: 02/21/2024 [facility] Comment on above: Expected: 02/20/2023 (Approximate), Expi res: 02/21/2024 Start: 12-06-2022 Covid-19 Vaccine ( season) Covid-19 Vaccine ( season) [facility] Start: 12-06-2022 Influenza vaccination Influenza Vaccine (#1) [facility] Start: 2022 Screening for malignant neoplasm of lung Lung Cancer Screening [facility] Start: 2022 Shingrix Vaccine (1 of 2) Shingrix Vaccine (1 of 2) [facility] Start: 2022 Zoster Vaccines (1 of 2) Zoster Vaccines (1 of 2) [facility] Start: 04-07-2022 Depression Assessment Depression Assessment [facility] Start: 03-06-2021 Lipid 1996 panel - Serum or Plasma Lipid Screening [facility] Start: 10-05-2019 Diabetes Screening Diabetes Screening [facility] Start: 2017 Cologuard (FIT-DNA) Cologuard (FIT-DNA) [facility] Start: 2017 Colonoscopy Colonoscopy [facility] Start: 2017 Colorectal Cancer Screening Colorectal Cancer Screening [facility] Start: [address] Colonography [facility] Start: 2017 Fecal Occult Blood Fecal Occult Blood [facility] Start: 2017 Screening for malignant neoplasm of colon [facility] Start: 2017 Sigmoidoscopy Sigmoidoscopy [facility] Start: 05-26-2017 HPV Testing HPV Testing [facility] Start: 05-26-2017 Pap Testing Pap Testing [facility] Start: 03-06-2017 Mammography Mammogram Screening [facility] Start: 03-06-2017 Screening for malignant neoplasm of breast Mammogram Screening [facility] Start: 05-26-2015 Screening for malignant neoplasm of cervix Cervical Cancer Screening [facility] Start: 2012 Screening for malignant neoplasm of breast Mammogram [facility] Start: 2002 Screening for malignant neoplasm of cervix [facility] Start: 2002 Zoledronic acid therapy Alpha-1 Antitrypsin Deficiency Screening [facility] Start: 1993 Screening for malignant neoplasm of cervix Pap Smear [facility] Start: 11-23-1991 Hepatitis B Vaccine (1 of 3 - 19+ 3-dose series) Hepatitis B Vaccine (1 of 3 - 19+ 3-dose series) [facility] Start: 11-23-1991 Hepatitis B Vaccines (1 of 3 - 19+ 3-dose series) Hepatitis B Vaccines (1 of 3 - 19+ 3-dose series) [facility] Start: 11-23-1991 Pneumococcal Vaccine: 50+ (1 of 2 - PCV) Pneumococcal Vaccine: 50+ (1 of 2 - PCV) [facility] Start: 11-23-1991 Pneumococcal Vaccine: 50+ Years (1 of 2 - PCV) Pneumococcal Vaccine: 50+ Years (1 of 2 - PCV) [facility] Start: 1990 Annual PCP Team Chronic Disease Visit Annual PCP Team Chronic Disease Visit [facility] Start: 1990 Diabetes mellitus screening Diabetes Screening [facility] Start: 1990 Hepatitis C screening Hepatitis C Screening [facility] Start: 1990 Hepatitis C Screening Hepatitis C Screening [facility] Start: 1990 HIV Screening HIV Screening [facility] Start: 1990 HIV screening HIV Screening [facility] Start: 1990 Spirometry Spirometry [facility] Start: 1978 Pneumococcal vaccination [facility] Start: 1978 Pneumococcal Vaccine: Pediatrics (0 to 5 Years) and At-Risk Patients (6 to 64 Years) (1 - PCV) Pneumococcal Vaccine: Pediatrics (0 to 5 Years) and At-Risk Patients (6 to 64 Years) (1 - PCV) [facility] Start: 1978 Pneumococcal Vaccine: Pediatrics (0 to 5 Years) and At-Risk Patients (6 to 64 Years) (1 of 2 - PCV) Pneumococcal Vaccine: Pediatrics (0 to 5 Years) and At-Risk Patients (6 to 64 Years) (1 of 2 - PCV) [facility] Start: 1973 MMR Vaccines (1 of 1 - Standard series) MMR Vaccines (1 of 1 - Standard series) [facility] Start: 05-25-1973 COVID-19 Vaccine (#1) COVID-19 Vaccine (#1) [facility] Start: 05-25-1973 Examination of skin Derm Melanoma Skin Check [facility] Start: 1972 Hepatitis B Vaccine (1 of 3 - 3-dose series) Hepatitis B Vaccine (1 of 3 - 3-dose series) [facility] Start: 1972 Hepatitis B Vaccines (1 of 3 - 3-dose series) Hepatitis B Vaccines (1 of 3 - 3-dose series) [facility] Start: 1972 HIV screening HIV Screening [facility] Start: 1972 Lipid panel Lipid Panel [facility] Start: 1972 Medicare Advantage Annual Wellness Visit (AWV) Medicare Advantage Annual Wellness Visit (AWV) [facility] Start: 1972 Screening for malignant neoplasm of colon [facility] Cologuard colon canc er screening Cologuard colon cancer screening Lab Routine Screening for colon cancer Ordered: 09/17/2023 [facility] Work Phone: Comment on above: Ordered: 09/17/2023 End: 12-23-2024 CT Chest for screening WO contrast CT LUNG SCREEN WO IVCON Radiology Routine Encounter for screening for lung cancer 1 Occurrences starting 11/24/2023 until 12/23/2024 [facility] Work Phone: Comment on above: 1 Occurrences starting 11/24/2023 until 12/23/2024 End: 08-19-2025 DBT Breast - bilateral screening HEIDI SCREENING W DOUGLAS Radiology Routine Encounter for screening mammogram for breast cancer 1 Occurrences starting 07/20/2024 until 08/19/2025 [facility] Work Phone: Comment on above: 1 Occurrences starting 07/20/2024 until 08/19/2025 End: 12-24-2024 LUNG DIFFUSION CAPACITY (DLCO) LUNG DIFFUSION CAPACITY (DLCO) PFT Routine Chronic obstructive pulmonary disease, unspecified COPD type (HCC) 1 Occurrences starting 11/25/2023 until 12/24/2024 [facility] Comment on above: 1 Occurrences starting 11/25/2023 until 12/24/2024 End: 12-24-2024 LUNG VOLUMES LUNG VOLUMES PFT Routine Chronic obstructive pulmonary disease, unspecified COPD type (HCC) 1 Occurrences starting 11/25/2023 until 12/24/2024 [facility] Comment on above: 1 Occurrences starting 11/25/2023 until 12/24/2024 End: 12-24-2024 SPIROMETRY WITH DILATOR IF OBSTRUCTED SPIROMETRY WITH DILATOR IF OBSTRUCTED PFT Routine Chronic obstructive pulmonary disease, unspecified COPD type (HCC) 1 Occurrences starting 11/25/2023 until 12/24/2024 [facility] Comment on above: 1 Occurrences starting 11/25/2023 until 12/24/2024 Xcapsl ctrc rmvl ins j io lens prosth w/o ecp PHACOEMULSIFICATION WITH INTRAOCULAR LENS INSERTION Combined forms of age-related cataract of right eye [facility] OR End: 03-15-2024 XR Hip - right 3 Views [facility] Work Phone: Comment on above: Once for 1 Occurrences starting 03/15/20 24 until 03/15/2024 Immunizations Immunization Date Immunization Notes Care Provider Mehdi hermosillo 06-29-2016 tetanus toxoid, redu daquan diphtheria toxoid, and acellular pertussis vaccine, adsorbed Dalton Bowden MD Work Phone: [facility] 03-06-2016 influenza virus vacc ine, unspecified formulation Leslie Saenz DO Work Phone: [facility] 02-07-2005 influenza virus vacc ine, unspecified formulation Dalton Bowden MD Work Phone: [facility] Payers Date Payer Category Payer Self-pay 2023 Medicaid HMO [id number] 2023 Medicare [id number] 2023 Medicare (Managed Care) [facility] DUAL COMPLETE HMO POS SNP Member Subscriber Plan / Payer (Effective 2023-Present) Name: Melissa Galvan Relation to Subscriber: Self Name: Melissa Galvan Payer ID: [id number] (NAIC) Group ID: Not on file Type: Medicare Address: [place] [id number] 2023 Medicare HMO [employer] DUAL COMPLET E [id number] 2023 Unknown [id number] 2018 Medicaid 2018 Medicaid [id number] Medicaid [id number] Medicare [id number] Private Health Insurance Unknown [id number] Unknown [id number] Social History Date Type Detail Facility Start: 03-06-2016 End: 02-20-2023 Tobacco smoking status DCIS Smokes tobacco daily [facility] Start: 04-07-1988 End: 08-30-2023 History of tobacco use Cigarette Smoker [facility] Start: 02-20-2023 End: 05-07-2024 Cigarettes smoked current (pack per day) - Reported 0.3 [facility] Start: 02-20-2023 End: 11-26-2023 Tobacco use and exposure Smokeless tobacco non-user [facility] Start: 02-20-2023 End: 09-13-2024 Alcohol intake Current drinker of alcohol (finding) [facility] Start: 03-26-2022 End: 05-07-2024 Tobacco use panel [facility] Start: 02-20-2023 Alcohol Comment very rare [facility] Start: 1970 Sex Assigned At Not on file S [facility] Start: 03-06-2016 End: 11-24-2023 Tobacco use and exposure Former smokeless tobacco user [facility] Work Phone: End: 03-06-2015 History of tobacco use User of smokeless tobacco [facility] Work Phone: National Score (1-10 0), lower number is lower risk 90 [facility] Start: 03-06-2016 Alcohol Comment rarely [facility] Start: 09-10-2023 End: 11-26-2023 Tobacco smoking status DCIS Ex-smoker [facility] Start: 04-07-1988 End: 08-30-2023 History of tobacco use Current smoker [facility] Has the [employer], [employer], or water company threatened to shut off services in your home in past 12Mo No [facility] Do you belong to any clubs or organizations such as gnosticism groups, unions, fraternal or athletic groups, or school groups? Yes [facility] Are you now , , , , never or living with a partner? [facility] How often to you hav e a drink containing alcohol? Never [facility] How many standard dr inks containing alcohol do you have on a typical day? 1 or 2 [facility] Do you feel stress - tense, restless, nervous, or anxious, or unable to sleep at night because your mind is troubled all the time - these days [OSQ] Very much [facility] (I/We) worried wheth er (my/our) food would run out before (I/we) got money to buy more. Never true [facility] Start: 11-05-2021 Sex Female (finding) [facility] Start: 05-10-2024 End: 02-04-2025 Alcoholic beverage intake Ex-drinker (finding) [facility] How hard is it for y ou to pay for the very basics like food, housing, medical care, and heating Somewhat hard [facility] Do you feel stress - tense, restless, nervous, or anxious, or unable to sleep at night because your mind is troubled all the time - these days [OSQ] To some extent [facility] (I/We) worried wheth er (my/our) food would run out before (I/we) got money to buy more. Sometimes true [facility] Start: 1970 Sex Assigned At Female [address] [facility] Medical Equipment Procedure Code Equipment Code Equipment Origin al Text Equipment Identifier Dates [id number] Start: 09-22-2023 Lens Iol Posteri or Akreos [facility] [id number] - [id number] Start: 10-27-2023 Functional Status Date Assessment Result Facility 10-04-2024 Patient Health Questionnaire 2 item (PHQ- 2) [Reported] [facility] 10-04-2024 PHQ-9 quick depression assessment panel [ Reported.PHQ] [facility] 10-04-2024 Generalized anxiety disorder 7 item (ANIYA- 7) [facility] 09-03-2024 Patient Health Questionnaire 2 item (PHQ- 2) [Reported] [facility] 09-03-2024 PHQ-9 quick depression assessment panel [ Reported.PHQ] [facility] 09-03-2024 Generalized anxiety disorder 7 item (ANIYA- 7) [facility] Clinical Notes 02-17-2023 to 02-11-2025 Telephone Encounter - WARD Lin CNP - 02/11/2025 11:29 AM ESTTelephone Encounter - WARD Lin CNP - 02/11/2025 11:29 AM WARD Diop CNP - 02/04/2025 1:00 PM EDT Note Date & Type Note Facility 02-11-2025 Telephone encounter Note Rx sent. OARRS report reviewed with no discrepancies. CSA signed in November 2024. Follow up as scheduled. [facility] 02-11-2025 Miscellaneous Notes Rx sent. OARRS report reviewed with no discrepancies. CSA signed in November 2024. Follow up as scheduled. documented in this encounter [facility] 02-07-2025 Telephone encounter Note Reviewed chart. Refill appropriate. RX sent. [facility] 02-07-2025 Miscellaneous Notes Reviewed chart. Refill appropriate. RX sent. documented in this encounter [facility] 02-04-2025 History of Present illness Narrative Images from the original note were not included. [address] [address] Megan Galvan is a 54 y.o. female who presents for Follow-up, Depression, and Anxiety Patient was identified and seen today via Telehealth by agreement and consent. I used the following Telehealth technology: Audio capability only. Total length of call 20 minutes. The patient was offered and advised video for a more comprehensive evaluation, but the patient declined or was unable to use video. Patient location: Patient Location: Home. This patient encounter is appropriate and reasonable under the circumstances: Behavioral Health . The patient has been advised of the potential risks and limitations of this mode of treatment (including but not limited to the absence of in-person examination) and has agreed to be treated in a remote fashion in spite of them. Any and all of the patient's/patient's family's questions on this issue have been answered and I have made no promises or guarantees to the patient. The patient has also been advised to contact this office for worsening conditions or problems, and seek emergency medical treatment and/or call 911 if the patient deems either necessary. The patient stated that they are currently in the [facility]. If the patient is a minor, permission has been obtained by the parent or guardian for the patient to receive medical care at this visit. Assessment/Plan 1. Moderate episode of recurrent major depressive disorder (CMS/HCC) (F33.1) - chronic, stable - Patient reports readiness to engage in counseling services - Continue Paxil 30mg once daily - Referral placed to [facility] for psychiatric evaluation and counseling - Patient provided contact number [phone] - Follow-up appointment scheduled for May 09 at 9 AM in our office 2. Anxiety disorder, unspecified type (F41.9) - chronic, stable - Patient reports significant anxiety regarding upcoming colonoscopy procedure - Continue Klonopin twice daily as needed and daily Paxil - Referral placed to [facility] for comprehensive mental health management 3. PTSD (post-traumatic stress disorder) (F43.10) - chronic, stable - Patient reports readiness to engage in counseling services - Continue Paxil 30mg once daily - Referral placed to [facility] at [facility] for psychiatric evaluation and counseling Megan was seen today for follow-up, depression and anxiety. Diagnoses and all orders for this visit: Moderate episode of recurrent major depressive disorder (CMS/HCC) (Primary) - External referral to Psychiatry; Future Anxiety disorder, unspecified type - External referral to Psychiatry; Future PTSD (post-traumatic stress disorder) - External referral to Psychiatry; Future Follow up in 3 months (on 05/09/2025) for Next scheduled follow-up. Subjective History of Present Illness Megan Galvan, a 54-year-old female, presents for a virtual visit for discussion regarding difficulty accessing mental health services. She was unable to get the video component of her visit working, so the visit was conducted via audio only. She reports reaching out to multiple locations for counseling but has encountered barriers. One location cannot see her until June, which she is willing to accept if no earlier options become available. She states [employer] has repeatedly canceled appointments on her, and she is no longer willing to deal with the cancellations. She reports that when calling various locations, they focus on medication refills, but she emphasizes that her need is not about medication. She states she has a lot to say and needs someone to talk to. She mentions she previously did not feel comfortable discussing her concerns but now feels ready to do so. She reports her current medications are adequate and will be due for refill in a few weeks through mail delivery. She is currently taking Klonopin twice daily as needed for anxiety and Paxil 30 milligrams once daily. I obtained verbal consent from the patient and/or patient's guardian to use ambient listening technology during this encounter before the ambient technology was engaged. Review of Systems Psychiatric/Behavioral: Positive for dysphoric mood. Negative for self-injury and suicidal ideas. The patient is nervous/anxious. Objective There were no vitals taken for this visit. Physical Exam Constitutional: General: She is not in acute distress. Pulmonary: Comments: Speaking in complete sentences. Neurological: Mental Status: She is alert and oriented to person, place, and time. Psychiatric: Mood and Affect: Mood normal. Thought Content: Thought content normal. Results documented in this encounter [facility] 02-04-2025 History of Present illness Narrative Images from the original note were not included. [address] [address] Megan Galvan is a 54 y.o. female who presents for Follow-up, Depression, and Anxiety Patient was identified and seen today via Telehealth by agreement and consent. I used the following Telehealth technology: Audio capability only. Total length of call 20 minutes. The patient was offered and advised video for a more comprehensive evaluation, but the patient declined or was unable to use video. Patient location: Patient Location: Home. This patient encounter is appropriate and reasonable under the circumstances: Behavioral Health . The patient has been advised of the potential risks and limitations of this mode of treatment (including but not limited to the absence of in-person examination) and has agreed to be treated in a remote fashion in spite of them. Any and all of the patient's/patient's family's questions on this issue have been answered and I have made no promises or guarantees to the patient. The patient has also been advised to contact this office for worsening conditions or problems, and seek emergency medical treatment and/or call 911 if the patient deems either necessary. The patient stated that they are currently in the [facility]. If the patient is a minor, permission has been obtained by the parent or guardian for the patient to receive medical care at this visit. Assessment/Plan 1. Moderate episode of recurrent major depressive disorder (CMS/HCC) (F33.1) - chronic, stable - Patient reports readiness to engage in counseling services - Continue Paxil 30mg once daily - Referral placed to [facility] at [facility] for psychiatric evaluation and counseling - Patient provided contact number [phone] - Follow-up appointment scheduled for May 09 at 9 AM in our office 2. Anxiety disorder, unspecified type (F41.9) - chronic, stable - Patient reports significant anxiety regarding upcoming colonoscopy procedure - Continue Klonopin twice daily as needed and daily Paxil - Referral placed to [facility] for comprehensive mental health management 3. PTSD (post-traumatic stress disorder) (F43.10) - chronic, stable - Patient reports readiness to engage in counseling services - Continue Paxil 30mg once daily - Referral placed to [facility] for psychiatric evaluation and counseling Megan was seen today for follow-up, depression and anxiety. Diagnoses and all orders for this visit: Moderate episode of recurrent major depressive disorder (CMS/HCC) (Primary) - External referral to Psychiatry; Future Anxiety disorder, unspecified type - External referral to Psychiatry; Future PTSD (post-traumatic stress disorder) - External referral to Psychiatry; Future Follow up in 3 months (on 05/09/2025) for Next scheduled follow-up. Subjective History of Present Illness Megan Galvan, a 54-year-old female, presents for a virtual visit for discussion regarding difficulty accessing mental health services. She was unable to get the video component of her visit working, so the visit was conducted via audio only. She reports reaching out to multiple locations for counseling but has encountered barriers. One location cannot see her until June, which she is willing to accept if no earlier options become available. She states [employer] has repeatedly canceled appointments on her, and she is no longer willing to deal with the cancellations. She reports that when calling various locations, they focus on medication refills, but she emphasizes that her need is not about medication. She states she has a lot to say and needs someone to talk to. She mentions she previously did not feel comfortable discussing her concerns but now feels ready to do so. She reports her current medications are adequate and will be due for refill in a few weeks through mail delivery. She is currently taking Klonopin twice daily as needed for anxiety and Paxil 30 milligrams once daily. I obtained verbal consent from the patient and/or patient's guardian to use ambient listening technology during this encounter before the ambient technology was engaged. Review of Systems Psychiatric/Behavioral: Positive for dysphoric mood. Negative for self-injury and suicidal ideas. The patient is nervous/anxious. Objective There were no vitals taken for this visit. Physical Exam Constitutional: General: She is not in acute distress. Pulmonary: Comments: Speaking in complete sentences. Neurological: Mental Status: She is alert and oriented to person, place, and time. Psychiatric: Mood and Affect: Mood normal. Thought Content: Thought content normal. Results documented in this encounter [facility] 02-04-2025 Miscellaneous Notes Addended by: TRACY RICHARD on: 02/07/2025 09:16 AM Modules accepted: Level of Service documented in this encounter [facility] 02-04-2025 Note Addended by: TRACY RICHARD on: 02/07/2025 09:16 AM Modules accepted: Level of Service [facility] 01-21-2025 Note Addended by: SUMAYA FITCH on: 01/21/2025 07:50 AM Modules accepted: Orders [facility] 01-21-2025 Note Addended by: SUMAYA FITCH on: 01/21/2025 07:50 AM Modules accepted: Orders [facility] 01-21-2025 Miscellaneous Notes Addended by: SUMAYA PEREZ on: 01/21/2025 07:50 AM Modules accepted: Orders Addended by: WENDY JEREZ on: 01/21/2025 07:40 AM Modules accepted: Orders Sent message to bariatric coordinator again for update via secure chat Did you hear anything back on this? Message sent to bariatric coordinator for assistance. Name of caller: Megan Contact phone number: [phone] Relationship to Patient: patient Provider: WARD Lin CNP Practice: [facility] Chief Complaint/Reason for Call: Megan called regarding finding a therapist. [facility] does not accept [facility]. She is requesting another provider name or office that she can try to get an appointment with as soon as possible. Please send Megan a [employer] message with information, thank you! Best time of day caller can be reached: any Patient advised that office/PCP has 24-48 business hours to return their call: Yes documented in this encounter [facility] 01-21-2025 Note Addended by: WENDY SYKES on: 01/21/2025 07:40 AM Modules accepted: Orders [facility] 01-21-2025 Note Addended by: WENDY SYKES on: 01/21/2025 07:40 AM Modules accepted: Orders [facility] 01-19-2025 Note Sent message to refe rral coordinator again for update via secure chat [facility] 01-19-2025 Telephone encounter Note Sent message to bariatric coordinator again for update via secure chat [facility] 01-19-2025 Miscellaneous Notes Sent message to bariatric coordinator again for update via secure chat Did you hear anything back on this? Message sent to bariatric coordinator for assistance. Name of caller: Megan Contact phone number: [phone] Relationship to Patient: patient Provider: WARD Lin CNP Practice: [facility] Chief Complaint/Reason for Call: Megan called regarding finding a therapist. [facility] does not accept [facility]. She is requesting another provider name or office that she can try to get an appointment with as soon as possible. Please send Megan a [employer] message with information, thank you! Best time of day caller can be reached: any Patient advised that office/PCP has 24-48 business hours to return their call: Yes documented in this encounter [facility] 01-19-2025 Telephone encounter Note Did you hear anything back on this? [facility] 01-17-2025 Note Message sent to refe rral coordinator for assistance. [facility] 01-17-2025 Telephone encounter Note Message sent to bariatric coordinator for assistance. [facility] 01-17-2025 Miscellaneous Notes Message sent to bariatric coordinator for assistance. Name of caller: Megan Contact phone number: [phone] Relationship to Patient: patient Provider: WARD Lin CNP Practice: [facility] Chief Complaint/Reason for Call: Megan called regarding finding a therapist. [facility] does not accept [facility]. She is requesting another provider name or office that she can try to get an appointment with as soon as possible. Please send Megan a [employer] message with information, thank you! Best time of day caller can be reached: any Patient advised that office/PCP has 24-48 business hours to return their call: Yes documented in this encounter [facility] 01-17-2025 Telephone encounter Note Name of caller: Megan Contact phone number: [phone] Relationship to Patient: patient Provider: WARD Lin CNP Practice: [facility] Chief Complaint/Reason for Call: Megan called regarding finding a therapist. [facility] does not accept [facility]. She is requesting another provider name or office that she can try to get an appointment with as soon as possible. Please send Megan a [employer] message with information, thank you! Best time of day caller can be reached: any Patient advised that office/PCP has 24-48 business hours to return their call: Yes [facility] 01-13-2025 Telephone encounter Note Rx sent. OARRS report reviewed with no discrepancies. CSA sigend November 2024. Follow up as scheduled. [facility] 01-13-2025 Miscellaneous Notes Rx sent. OARRS report reviewed with no discrepancies. CSA sigend November 2024. Follow up as scheduled. Prescription Request: clonazePAM (KlonoPIN) 0.5 MG tablet Last medication check: 09/17/23 Last physical exam: 11/15/24 Next scheduled appointment: 05/09/25 Last date of refill on this medication 12/15/24 ( qty 30 refill 0) documented in this encounter [facility] 01-13-2025 Telephone encounter Note S: Patient spoke with CAC nurse with complaint of questions about having a bowel prep B: pt was seen at [facility] in [place], #[phone] A: She called to ask if we can see the orders for her 02/03/25 Colonoscopy sched for 7 am. She asked what medications are being prescribed. She is very anxious about having the procedure. She said she was so nervious at the appt she missed most of what they were telling her. R: I advised her that office hasn't sent any information to the [place] office yet. When they do it will be scanned into her chart. I advised her to call that office with her questions. I advised her it is very likely they will be mailing her the instructions. I gave her reassurance about the prep and the procedure. I advised her that her caretakers will take good care of her and if she has anxiety it is okay. I advised her I have had 3 colonoscopies and my positive experiences. She said she felt better. Reason for Disposition Health information question, no triage required and triager able to answer question Protocols used: Information Only Call - No [id number] [facility] 01-13-2025 Miscellaneous Notes S: Patient spoke with CAC nurse with complaint of questions about having a bowel prep B: pt was seen at [facility] in [place], #[phone] A: She called to ask if we can see the orders for her 02/03/25 Colonoscopy sched for 7 am. She asked what medications are being prescribed. She is very anxious about having the procedure. She said she was so nervious at the appt she missed most of what they were telling her. R: I advised her that office hasn't sent any information to the [facility] yet. When they do it will be scanned into her chart. I advised her to call that office with her questions. I advised her it is very likely they will be mailing her the instructions. I gave her reassurance about the prep and the procedure. I advised her that her caretakers will take good care of her and if she has anxiety it is okay. I advised her I have had 3 colonoscopies and my positive experiences. She said she felt better. Reason for Disposition Health information question, no triage required and triager able to answer question Protocols used: Information Only Call - No [id number] documented in this encounter [facility] 01-13-2025 Telephone encounter Note Prescription Request: clonazePAM (KlonoPIN) 0.5 MG tablet Last medication check: 09/17/23 Last physical exam: 11/15/24 Next scheduled appointment: 05/09/25 Last date of refill on this medication 12/15/24 ( qty 30 refill 0) [facility] 12-27-2024 Telephone encounter Note Rx sent. Follow up as scheduled. [facility] 12-27-2024 Miscellaneous Notes Rx sent. Follow up as scheduled. documented in this encounter [facility] 12-16-2024 Telephone encounter Note Scheduled pt for 05/09/25 @ 9 am [facility] 12-16-2024 Miscellaneous Notes Scheduled pt for 05/09/25 @ 9 am Rx sent. OARRS report reviewed with no discrepancies. CSA signed in November 2024. Due for follow up in May 2025 for medication maintenance- please assist in scheduling. Thank you. Ordering provider: Tracy Richard Date of last office visit: 12.14.2024 Date of next office visit: none Updated/Validated preferred pharmacy: Yes Patient instructed to contact the pharmacy prior to picking up the medication: Yes (1) Medication name: levothyroxine (Synthroid, Levoxyl) 88 MCG tablet Medication dosage: 88 mcg (Micrograms) Monthly quantity needed: 30 How many day supply requestin days Medication route: oral (PO) Medication administration time(s): daily If taking medication PRN, reason for taking medication: N/A If this is a controlled substance do you receive this or any other controlled medication from any other doctor or facility: N/A Date of last refill (see medication tab): 11.17.2024 (2) Medication name: clonazePAM (KlonoPIN) tablet Medication dosage: 0.50 mg (Miligrams Monthly quantity needed: 30 How many day supply requestin days Medication route: oral (PO) Medication administration time(s): as needed (PRN) If taking medication PRN, reason for taking medication: anxiety If this is a controlled substance do you receive this or any other controlled medication from any other doctor or facility: No Date of last refill (see medication tab): 11.17.2024 documented in this encounter [facility] 12-16-[address] referral pending patient response for preference for referral. [facility] 12-15-2024 Telephone encounter Note Rx sent. OARRS report reviewed with no discrepancies. CSA signed in November 2024. Due for follow up in May 2025 for medication maintenance- please assist in scheduling. Thank you. [facility] 12-15-2024 Telephone encounter Note Ordering provider: Tracy Richard Date of last office visit: 12.14.2024 Date of next office visit: none Updated/Validated preferred pharmacy: Yes Patient instructed to contact the pharmacy prior to picking up the medication: Yes (1) Medication name: levothyroxine (Synthroid, Levoxyl) 88 MCG tablet Medication dosage: 88 mcg (Micrograms) Monthly quantity needed: 30 How many day supply requestin days Medication route: oral (PO) Medication administration time(s): daily If taking medication PRN, reason for taking medication: N/A If this is a controlled substance do you receive this or any other controlled medication from any other doctor or facility: N/A Date of last refill (see medication tab): 11.17.2024 (2) Medication name: clonazePAM (KlonoPIN) tablet Medication dosage: 0.50 mg (Miligrams Monthly quantity needed: 30 How many day supply requestin days Medication route: oral (PO) Medication administration time(s): as needed (PRN) If taking medication PRN, reason for taking medication: anxiety If this is a controlled substance do you receive this or any other controlled medication from any other doctor or facility: No Date of last refill (see medication tab): 11.17.2024 [facility] 12-07-2024 Telephone encounter Note Reviewed chart. Refill appropriate. RX sent. [facility] 12-07-2024 Miscellaneous Notes Reviewed chart. Refill appropriate. RX sent. Prescription Request: : Gabapentin 600 MG Oral Tablet Pantoprazole Sodium 40 MG Oral Tablet Delayed Release Montelukast Sodium 10 MG Oral Tablet : Metoprolol Succinate ER 50 MG Oral Tablet Extended Release 24 Hour Last medication check: none Last physical exam: 11/15/24 Next scheduled appointment: none CSA on file (date): 11/15/24 Last date of refill on this medication Gabapentin - 10/01/24 ( qty 270 refill 0) Pantoprazole - 10/04/24 ( qty 90 refill 1) Montelukast - 10/04/24 ( qty 90 refill 1) Metoprolol - 10/04/24 ( qty 90 refill 1) documented in this encounter [facility] 12-07-2024 Telephone encounter Note Prescription Request: : Gabapentin 600 MG Oral Tablet Pantoprazole Sodium 40 MG Oral Tablet Delayed Release Montelukast Sodium 10 MG Oral Tablet : Metoprolol Succinate ER 50 MG Oral Tablet Extended Release 24 Hour Last medication check: none Last physical exam: 11/15/24 Next scheduled appointment: none CSA on file (date): 11/15/24 Last date of refill on this medication Gabapentin - 10/01/24 ( qty 270 refill 0) Pantoprazole - 10/04/24 ( qty 90 refill 1) Montelukast - 10/04/24 ( qty 90 refill 1) Metoprolol - 10/04/24 ( qty 90 refill 1) [facility] 11-19-2024 Telephone encounter Note Spoke with patient and advised of provider message. Patient voiced understanding and states she took home COVID test and it was negative FYI. [facility] 11-19-2024 Miscellaneous Notes Spoke with patient and advised of provider message. Patient voiced understanding and states she took home COVID test and it was negative FYI. If symptoms have started within the past 24-48 hours it is most likely viral and an antibiotic is not warranted. All this will do is increase the risk of antibiotic resistance and/or a stool infection. I recommend she increase oral fluids to keep mucous secretions moist. Tea with honey can be helpful for throat. May use Tylenol/Motrin as needed for pain relief. Sleeping with humidified air can be helpful as well. The typical duration of a virus is 10 days. Notify if symptoms worsen or fail to improve. S: Patient spoke with [facility] nurse regarding sore throat, right ear pain B: Onset of symptoms/concern 1 day A: Patient reports right ear pain and sore throat. Denies fevers, drainage, difficulty swallowing, shortness of breath, chest pain. Patient asking if antibiotics can be called in. R: Advised patient she would have to be seen in office, no appointments available in office, offered to POD Patient states she does not drive. Advised trying otc antihistamine and/or Flonase. Patient states I will not stick anything up my nose. Also advised urgent care if symptoms do not improve or worsen. Patient ended call at this time Reason for Disposition All other earaches (Exceptions: Brief ear pain lasting < 1 hour, and earache occurring during air travel.) Protocols used: [id number] documented in this encounter [facility] 11-19-2024 Telephone encounter Note If symptoms have started within the past 24-48 hours it is most likely viral and an antibiotic is not warranted. All this will do is increase the risk of antibiotic resistance and/or a stool infection. I recommend she increase oral fluids to keep mucous secretions moist. Tea with honey can be helpful for throat. May use Tylenol/Motrin as needed for pain relief. Sleeping with humidified air can be helpful as well. The typical duration of a virus is 10 days. Notify if symptoms worsen or fail to improve. [facility] 11-19-2024 Telephone encounter Note S: Patient spoke with [facility] nurse regarding sore throat, right ear pain B: Onset of symptoms/concern 1 day A: Patient reports right ear pain and sore throat. Denies fevers, drainage, difficulty swallowing, shortness of breath, chest pain. Patient asking if antibiotics can be called in. R: Advised patient she would have to be seen in office, no appointments available in office, offered to POD Patient states she does not drive. Advised trying otc antihistamine and/or Flonase. Patient states I will not stick anything up my nose. Also advised urgent care if symptoms do not improve or worsen. Patient ended call at this time Reason for Disposition All other earaches (Exceptions: Brief ear pain lasting < 1 hour, and earache occurring during air travel.) Protocols used: [id number] [facility] [employer] 11-17-2024 Telephone encounter Note Pended and updated pharmacy. [facility] [employer] 11-17-2024 Miscellaneous Notes Pended and updated pharmacy. Name of caller: Megan Contact phone number: [phone] Relationship to Patient: patient Provider: Tracy richard Practice: [facility] Chief Complaint/Reason for Call: Patient stated that the rosuvastatin was to be sent into [facility]. Please advise Best time of day caller can be reached: any Patient advised that office/PCP has 24-48 business hours to return their call: No documented in this encounter [facility] [employer] 11-17-2024 Telephone encounter Note Name of caller: Megan Contact phone number: [phone] Relationship to Patient: patient Provider: Tracy richard Practice: [facility] Chief Complaint/Reason for Call: Patient stated that the rosuvastatin was to be sent into [facility]. Please advise Best time of day caller can be reached: any Patient advised that office/PCP has 24-48 business hours to return their call: No [facility] [employer] 11-15-2024 Evaluation + Plan note Associated Problem(s): Atrial tachycardia (HCC) - Chronic. Stable with Metoprolol. Will continue current treatment plan. Orders: Comprehensive metabolic panel; Future [facility] [employer] 11-15-2024 Evaluation + Plan note Associated Problem(s): Chronic obstructive lung disease (HCC) - Chronic. Stable with Xopenex. Will continue current treatment plan. - Has not been using her daily Symbicort. Orders: Comprehensive metabolic panel; Future [facility] [employer] 11-15-2024 Evaluation + Plan note Associated Problem(s): Asthma - Chronic. Stable with Xopenex. Will continue current treatment plan. - Has not been using her daily Symbicort. Orders: Comprehensive metabolic panel; Future [facility] [employer] 11-15-2024 Evaluation + Plan note Associated Problem(s): Moderate episode of recurrent major depressive disorder (HCC) - Chronic. Stable with Paxil. Will continue current treatment plan. Orders: Comprehensive metabolic panel; Future [facility] 11-15-2024 Evaluation + Plan note Associated Problem(s): Anxiety disorder - Chronic. Stable with Paxil and PRN Clonazepam. Will continue current treatment plan. - OARRS report reviewed with no discrepancies. CSA signed today. Orders: Comprehensive metabolic panel; Future [facility] 11-15-2024 Evaluation + Plan note Associated Problem(s): PTSD (post-traumatic stress disorder) - Chronic. Stable with Paxil and PRN Clonazepam. Will continue current treatment plan. - OARRS report reviewed with no discrepancies. CSA signed today. Orders: Comprehensive metabolic panel; Future [facility] 11-15-2024 Evaluation + Plan note Associated Problem(s): Chronic pain syndrome - Chronic. Stable with Nabumetone and Gabapentin. Will continue current treatment plan. - OARRS report reviewed with no discrepancies. CSA signed today. Orders: Comprehensive metabolic panel; Future [facility] 11-15-2024 Evaluation + Plan note Associated Problem(s): Acquired hypothyroidism - Chronic. Stable with Levothyroxine. Will continue current treatment plan. Orders: TSH; Future Comprehensive metabolic panel; Future [facility] 11-15-2024 Evaluation + Plan note Associated Problem(s): Mixed hyperlipidemia - Chronic. Stable with Rosuvastatin. Will continue current treatment plan. Orders: Lipid panel; Future Comprehensive metabolic panel; Future [facility] 11-15-2024 Evaluation + Plan note Associated Problem(s): Neuropathy - Chronic. Stable with Gabapentin. Will continue current treatment plan. - OARRS report reviewed with no discrepancies. CSA signed today. Orders: Comprehensive metabolic panel; Future [facility] 11-15-2024 History of Present illness Narrative Images from the original note were not included. [facility] [id number] [facility] [address] Dept: [phone] Dept Chief Complaint: Melissa Galvan is an 53 y.o. female here for an annual wellness visit. Assessment/Plan : Assessment & Plan Routine general medical examination at health care facility - Encouraged a healthy diet low in cholesterol and saturated fats. - Encouraged regular exercise. Atrial tachycardia (HCC) - Chronic. Stable with Metoprolol. Will continue current treatment plan. Orders: Comprehensive metabolic panel; Future Chronic obstructive pulmonary disease, unspecified COPD type (HCC) - Chronic. Stable with Xopenex. Will continue current treatment plan. - Has not been using her daily Symbicort. Orders: Comprehensive metabolic panel; Future Moderate persistent asthma without complication - Chronic. Stable with Xopenex. Will continue current treatment plan. - Has not been using her daily Symbicort. Orders: Comprehensive metabolic panel; Future Moderate episode of recurrent major depressive disorder (HCC) - Chronic. Stable with Paxil. Will continue current treatment plan. Orders: Comprehensive metabolic panel; Future Anxiety disorder, unspecified type - Chronic. Stable with Paxil and PRN Clonazepam. Will continue current treatment plan. - OARRS report reviewed with no discrepancies. CSA signed today. Orders: Comprehensive metabolic panel; Future PTSD (post-traumatic stress disorder) - Chronic. Stable with Paxil and PRN Clonazepam. Will continue current treatment plan. - OARRS report reviewed with no discrepancies. CSA signed today. Orders: Comprehensive metabolic panel; Future Chronic pain syndrome - Chronic. Stable with Nabumetone and Gabapentin. Will continue current treatment plan. - OARRS report reviewed with no discrepancies. CSA signed today. Orders: Comprehensive metabolic panel; Future Neuropathy - Chronic. Stable with Gabapentin. Will continue current treatment plan. - OARRS report reviewed with no discrepancies. CSA signed today. Orders: Comprehensive metabolic panel; Future Acquired hypothyroidism - Chronic. Stable with Levothyroxine. Will continue current treatment plan. Orders: TSH; Future Comprehensive metabolic panel; Future Mixed hyperlipidemia - Chronic. Stable with Rosuvastatin. Will continue current treatment plan. Orders: Lipid panel; Future Comprehensive metabolic panel; Future Screening for diabetes mellitus - Will notify of blood work results. Orders: Comprehensive metabolic panel; Future Screening for colon cancer - Will notify of blood work results. Orders: [facility] [place] [facility]; Future Screening mammogram for breast cancer Orders: Bilateral screening mammogram with tomosynthesis; Future Symptoms consistent with irritable bowel syndrome - Will consult with gastroenterology. Orders: Comprehensive metabolic panel; Future [facility] [place] [facility]; Future I have reviewed and reconciled the medication list with the patient today. Current Outpatient Medications Medication Sig Dispense Refill Cannabinoids (medical cannabis) Take 1 each by mouth. clonazePAM (KlonoPIN) 0.5 MG tablet Take 0.5 tablets (0.25 mg) by mouth 2 times daily as needed for anxiety. 30 tablet 0 gabapentin (Neurontin) 600 MG tablet TAKE 1 TABLET BY MOUTH 3 TIMES DAILY 270 tablet 0 levalbuterol (Xopenex) 45 MCG/ACT inhaler USE 2 INHALATIONS BY MOUTH EVERY 6 HOURS NEEDED FOR WHEEZING OR SHORTNESS OF BREATH 45 g 2 levothyroxine (Synthroid, Levoxyl) 75 MCG tablet TAKE 1 TABLET BY MOUTH DAILY EXCEPT ON SUNDAYS TAKE 2 TABLETS 72 tablet 0 metoprolol succinate XL (Toprol-XL) 50 MG 24 hr tablet Take 1 tablet (50 mg) by mouth daily. 90 tablet 1 montelukast (Singulair) 10 MG tablet Take 1 tablet (10 mg) by mouth daily. 90 tablet 1 nabumetone (Relafen) 500 MG tablet Take 1 tablet (500 mg) by mouth 2 times daily as needed for mild pain (1-3). 60 tablet 0 pantoprazole (ProtoNix) 40 MG EC tablet Take 1 tablet (40 mg) by mouth every morning (before breakfast). (Patient taking differently: Take 40 mg by mouth as needed.) 90 tablet 1 PARoxetine (Paxil) 30 MG tablet Take 1 tablet (30 mg) by mouth every morning. rosuvastatin (Crestor) 5 MG tablet Take 1 tablet (5 mg) by mouth daily. 90 tablet 1 No current facility-administered medications for this visit. Also reviewed during this visit: The following health maintenance schedule was reviewed with the patient and provided in printed form in the after visit summary: Health Maintenance Topic Date Due Colorectal Cancer Screening Never done Mammogram Never done Medicare Advantage Annual Wellness Visit Never done Derm Melanoma Skin Check 08/22/2024 COVID-19 Vaccine (2023-25 season) 2025 (Originally 12/07/2023) Hepatitis B Vaccines (1 of 3 - 19+ 3-dose series) 05/07/2025 (Originally 11/23/1991) Pneumococcal Vaccine: 50+ Years (1 of 2 - PCV) 05/07/2025 (Originally 11/23/1991) HIV Screening 05/07/2025 (Originally 1970) Hepatitis C Screening 05/07/2025 (Originally 1990) TSH Level 11/23/2024 Diabetes Screening 11/23/2024 Influenza Vaccine (1) 12/06/2024 Depression Monitoring 04/05/2025 DTaP/Tdap/Td Vaccines (2 - Td or Tdap) 06/29/2026 Lipid Panel 03/21/2028 RSV Immunization for Adults (1 - 1-dose 75+ series) 11/23/2047 RSV Immunization under 20 Months Aged Out HIB Vaccines Aged Out IPV Vaccines Aged Out Hepatitis A Vaccines Aged Out Meningococcal Vaccine Aged Out Rotavirus Vaccines Aged Out HPV Vaccines Aged Out Meningococcal B Vaccine Aged Out MMR Vaccines Discontinued Zoster Vaccines Discontinued List of current healthcare providers: Patient Care Team: Dalton Bowden MD as PCP - General (Family Medicine) Surendra Miller MD as Surgeon (Urology) WARD Lin CNP as Nurse Practitioner (Nurse Practitioner Family) Orders Placed This Encounter Procedures Bilateral screening mammogram with tomosynthesis Standing Status: Future Expected Date: 11/15/2024 Expiration Date: 01/15/2026 TSH Standing Status: Future Number of Occurrences: 1 Expected Date: 11/15/2024 Expiration Date: 11/15/2025 Lipid panel Standing Status: Future Number of Occurrences: 1 Expected Date: 11/15/2024 Expiration Date: 11/15/2025 Comprehensive metabolic panel Standing Status: Future Number of Occurrences: 1 Expected Date: 11/15/2024 Expiration Date: 11/15/2025 [facility] [place] General [place] Would like to take alternative prep please. Standing Status: Future Expected Date: 11/15/2024 Expiration Date: 05/18/2025 Referral Priority: Routine Referral Type: Consultation Referral Reason: Specialty Services Required Requested Specialty: General Surgery Number of Visits Requested: 1 [facility] [place] Gastroenterology Standing Status: Future Expected Date: 11/15/2024 Expiration Date: 05/18/2025 Referral Priority: Routine Referral Type: Consultation Referral Reason: Specialty Services Required Requested Specialty: Gastroenterology Number of Visits Requested: 1 Review of Systems Constitutional: Negative for chills and fever. HENT: Negative for hearing loss and trouble swallowing. Eyes: Negative for pain and visual disturbance. Respiratory: Negative for cough, chest tightness, shortness of breath and wheezing. Cardiovascular: Negative for chest pain, palpitations and leg swelling. Gastrointestinal: Positive for abdominal pain, constipation and diarrhea. Negative for abdominal distention and blood in stool. Endocrine: Negative for polydipsia, polyphagia and polyuria. Genitourinary: Negative for dysuria and hematuria. Musculoskeletal: Positive for arthralgias. Skin: Negative for color change, pallor, rash and wound. Neurological: Negative for dizziness, syncope, weakness and headaches. Hematological: Does not bruise/bleed easily. Psychiatric/Behavioral: Positive for dysphoric mood. Negative for self-injury and suicidal ideas. The patient is nervous/anxious. Physical Exam Constitutional: General: Not in acute distress. Appearance: Not ill-appearing or diaphoretic. HENT: Head: Normocephalic and atraumatic. Right Ear: Tympanic membrane, ear canal and external ear normal. There is no impacted cerumen. Left Ear: Tympanic membrane, ear canal and external ear normal. There is no impacted cerumen. Nose: Nose normal. No congestion or rhinorrhea. Mouth/Throat: Mouth: Mucous membranes are moist. Pharynx: Oropharynx is clear. No oropharyngeal exudate or posterior oropharyngeal erythema. Eyes: General: No scleral icterus. Extraocular Movements: Extraocular movements intact. Pupils: Pupils are equal, round, and reactive to light. Neck: Thyroid: No thyroid mass or thyromegaly. Vascular: No carotid bruit. Cardiovascular: Rate and Rhythm: Normal rate and regular rhythm. Pulses: Normal pulses. Heart sounds: Normal heart sounds. No murmur heard. No friction rub. Pulmonary: Effort: Pulmonary effort is normal. Breath sounds: Normal breath sounds. No wheezing, rhonchi or rales. Chest: Bilateral breast symmetrical and smooth without masses. Free from discoloration, thickening of the skin, and prominent pores. Nipples without discharge,asymmetry, ulcerations, rashes, and inversions bilaterally. Breasts free from dimpling and retractions. Tail of [place] palpated bilaterally and free from axillary lymphadenopathy. Abdominal: General: Bowel sounds are normal. There is no distension. Palpations: Abdomen is soft. There is no hepatomegaly, splenomegaly or mass. Tenderness: There is no abdominal tenderness. There is no guarding or rebound. Musculoskeletal: General: No deformity. Normal range of motion. Cervical back: Normal range of motion and neck supple. Right lower leg: No edema. Left lower leg: No edema. Lymphadenopathy: Cervical: No cervical adenopathy. Skin: General: Skin is warm and dry. Capillary Refill: Capillary refill takes less than 2 seconds. Coloration: Skin is not jaundiced or pale. Findings: No erythema or rash. Neurological: Mental Status: Alert and oriented to person, place, and time. Motor: No weakness. Coordination: Coordination normal. Gait: Gait normal. Psychiatric: Mood and Affect: Mood normal. Behavior: Behavior normal. Thought Content: Thought content normal. Judgment: Judgment normal. Objective : BP 116/76 Pulse 62 Ht 5' 7 (1.702 m) Wt 105 lb 3.2 oz (47.7 kg) SpO2 98% BMI 16.48 kg/m No results found. Subjective : Megan presents today for her annual Medicare physical and fasting blood work. Tachycardia: Continues to Metoprolol daily as prescribed and feels this works well for her. COPD/Asthma: Will use Xopenex as needed. Has not been taking Symbicort daily. Feels symptoms have improved since quitting smoking cigarettes about 9.5 months ago. Depression/Anxiety/PTSD: No longer following up with psych because they no longer take her insurance. States she does not want to start all over again and declines another referral at this time. Feels the current dose of Paxil is working well for her. Continues to take Clonazepam as needed and this is helpful. Will need to start getting refills through our office for the Clonazepam and Paxil since she will no longer be seeing psych who was managing this for her. Chronic Pain Syndrome/Neuropathy: Had an appointment with an critical care nurse specialist through [facility] and they wanted to give her an injection but she did not want it. Will continue to take Nabumetone and Gabapentin and finds these helpful. Hypothyroidism: Continues to take Levothyroxine 75 mcg daily (2 tablets on Sundays) as prescribed. Will check her TSH level today. Hyperlipidemia: Continues to take Rosuvastatin daily as prescribed. Will check her cholesterol levels today. Has concerns regarding irregular bowel movements. States she will alternate between constipation and diarrhea with some abdominal bloating and discomfort. Requesting to see a ship fitter for further evaluation and workup. Health Maintenance: Would like a mammogram for breast cancer screening. Would like a colonoscopy for colon cancer screening. Has a canceling and cutting control clerk for a skin cancer screening examination - knows she needs to schedule. Tdap is current: 06/29/2016. Declines screening for HIV and hepatitis C. Declines a pneumococcal vaccination. Declines to be vaccinated for COVID-19. Health Risk Assessment: General: General In general, how would you say your health is?: (Patient-Rptd) (P) Good In the past 7 days, have you experienced any of the following: New or Increased Pain, New or Increased Fatigue, Loneliness, Social Isolation, Stress or Anger?: (Patient-Rptd) (P) No Select all that apply: (!) (Patient-Rptd) (P) Loneliness, Social Isolation Do you get the social and emotional suppport you need?: (Patient-Rptd) (P) Yes Interventions: See HPI Health Habits/Nutrition: Health Habits / Nutrition On average, how many days per week do you engage in moderate to strenous exercise (like a brisk walk)?: (Patient-Rptd) (P) 5 days On average, how man minutes do you engage in exercise at this level?: (Patient-Rptd) (P) 30 min Have you lost any weight without trying in the past 3 months? : (Patient-Rptd) (P) No Have you seen the dentist within the past year?: (!) (Patient-Rptd) (P) No Reminded to schedule with her dentist. Hearing/ Vision: Hearing / Vision Do you or your family notice any trouble with your hearing that hasn't been managed with hearing aids?: (Patient-Rptd) (P) No Do you have difficulty driving, watching TV, or doing any of your daily activities because of your eyesight?: (Patient-Rptd) (P) No Have you had an eye exam within the past year?: (Patient-Rptd) (P) Yes No results found. Safety: Safety Do you have a working smoke detector?: (Patient-Rptd) (P) Yes Do you have any tripping hazards - loose or unsecured carpets or rugs?: (Patient-Rptd) (P) No Do you have any tripping hazards - clutter in doorways, halls, or stairs?: (Patient-Rptd) (P) No Do you have either shower bars, grab bars, non-slip mats or non-slip surfaces in your shower or bathtub? : (Patient-Rptd) (P) Yes Do all your stairways have a railing or banister? : (Patient-Rptd) (P) Not Applicable Do you fasten your seatbelt when you are in a car?: (Patient-Rptd) (P) Yes ADL: ADL In the past 7 days, did you need help from others to perform any of the following everyday activities: Eating, dressing, grooming,bathing, toileting, or walking / balance? : (Patient-Rptd) (P) No In the past 7 days, did you need help from others to take care of any of the following: laundry, housekeeping, banking / finances,shopping, telephone use, food preparation, transportation, or taking medications? : (Patient-Rptd) (P) No Living Will: Living Will Do you have a living will?: (Patient-Rptd) (P) No Interventions: Declines information on this at this time. Cognitive: Cognitive Screening: Mini-Cog Clock Drawing Test (CDT): 2 Words Recalled: 3 Total Score: 5 Total Score Interpretation: Normal Mini-Cog Hypertension: No Interventions: N/A Fall Risk: Fall Risk One or more falls in the last year:: (Patient-Rptd) (P) No Advised to use a cane or walker to get around safely:: (Patient-Rptd) (P) No Feels unsteady when walking:: (Patient-Rptd) (P) No Steadies self on furniture while walking at home:: (Patient-Rptd) (P) No Worried about falling:: (Patient-Rptd) (P) No Depression Screening: Interventions: See HPI Tobacco Use: Social History Tobacco Use Smoking Status Former Current packs/day: 0.00 Average packs/day: 0.3 packs/day for 35.0 years (8.8 ttl pk-yrs) Types: Cigarettes Start date: 08/12/1988 Quit date: 08/13/2023 Years since quittin.2 Smokeless Tobacco Never Alcohol Use: Social Drivers of Health: SDOH risk assessment performed and documented today by members of the health care team. A total time of 15+ minutes was spent obtaining information from the patient and discussing options to address the patient's social risk factors and unmet needs. Social Drivers of Health with Concerns Concerns Present Tobacco Use: Medium Risk (10/18/2024) Financial Resource Strain: Medium Risk (05/07/2024) Food Insecurity: Food Insecurity Present (05/07/2024) Transportation Needs: Unmet Transportation Needs (05/07/2024) Stress: Stress Concern Present (05/07/2024) Depression: Mild depression (10/04/2024) Unknown Concern Social Connections: Unknown (05/07/2024) documented in this encounter [facility] 11-15-2024 Instructions WARD Lin CNP - 11/15/2024 8:40 AM EDT Personalized Preventative Plan for Melissa Galvan - 11/15/2024 Medicare offers a range of preventative health benefits. Some of the tests and screenings are paid in full while others may be subject to a deductible, co-insurance, and / or copay. Some of these benefits include a comprehensive review of your medical history including lifestyle, illnesses that may run in your family, and various assessments and screenings as appropriate. After reviewing your medical record and screening and assessments performed today, your provider may have ordered immunizations, labs, imaging, and / or referrals for you. A list of these orders (if applicable) as well as your Preventative Care list are included within your After Visit Summary for your review. Other Preventative Recommendations: A preventive eye exam by an seed and fertilizer specialist is recommended every 1-2 years to screen for glaucoma, cataracts, macular degeneration, and other eye disorders. A preventive dental visit is recommended every 6 months. Try to get at least 150 minutes of exercise per week or 10,000 steps per day on a pedometer. You need 1200-1500mg of calcium and 8466-9526 international units of vitamin D per day. It is possible to meet your calcium requirement with diet alone, but a vitamin D supplement is usually necessary to meet this goal. When exposed to the sun, use a sunscreen that protects against both UVA and UVB radiation with an SPF of 30 or greater. Reapply every 2-3 hours or after sweating, drying off with a towel, or swimming. Always wear a seat belt when traveling in a car. Always wear a helmet when riding a bicycle or a motorcycle documented in this encounter [facility] 11-15-2024 Miscellaneous Notes Associated Problem(s): Atrial tachycardia (HCC) - Chronic. Stable with Metoprolol. Will continue current treatment plan. Orders: Comprehensive metabolic panel; Future Associated Problem(s): Chronic obstructive lung disease (HCC) - Chronic. Stable with Xopenex. Will continue current treatment plan. - Has not been using her daily Symbicort. Orders: Comprehensive metabolic panel; Future Associated Problem(s): Asthma - Chronic. Stable with Xopenex. Will continue current treatment plan. - Has not been using her daily Symbicort. Orders: Comprehensive metabolic panel; Future Associated Problem(s): Moderate episode of recurrent major depressive disorder (HCC) - Chronic. Stable with Paxil. Will continue current treatment plan. Orders: Comprehensive metabolic panel; Future Associated Problem(s): Anxiety disorder - Chronic. Stable with Paxil and PRN Clonazepam. Will continue current treatment plan. - OARRS report reviewed with no discrepancies. CSA signed today. Orders: Comprehensive metabolic panel; Future Associated Problem(s): PTSD (post-traumatic stress disorder) - Chronic. Stable with Paxil and PRN Clonazepam. Will continue current treatment plan. - OARRS report reviewed with no discrepancies. CSA signed today. Orders: Comprehensive metabolic panel; Future Associated Problem(s): Chronic pain syndrome - Chronic. Stable with Nabumetone and Gabapentin. Will continue current treatment plan. - OARRS report reviewed with no discrepancies. CSA signed today. Orders: Comprehensive metabolic panel; Future Associated Problem(s): Acquired hypothyroidism - Chronic. Stable with Levothyroxine. Will continue current treatment plan. Orders: TSH; Future Comprehensive metabolic panel; Future Associated Problem(s): Mixed hyperlipidemia - Chronic. Stable with Rosuvastatin. Will continue current treatment plan. Orders: Lipid panel; Future Comprehensive metabolic panel; Future Associated Problem(s): Neuropathy - Chronic. Stable with Gabapentin. Will continue current treatment plan. - OARRS report reviewed with no discrepancies. CSA signed today. Orders: Comprehensive metabolic panel; Future documented in this encounter [facility] 11-15-2024 Note - Chronic. Stable wi th Paxil and PRN Clonazepam. Will continue current treatment plan. - OARRS report reviewed with no discrepancies. CSA signed today. Orders: Comprehensive metabolic panel; Future [facility] 11-15-2024 Note - Chronic. Stable wi th Levothyroxine. Will continue current treatment plan. Orders: TSH; Future Comprehensive metabolic panel; Future [facility] 11-15-2024 Note - Chronic. Stable wi th Rosuvastatin. Will continue current treatment plan. Orders: Lipid panel; Future Comprehensive metabolic panel; Future [facility] 11-15-2024 Note - Chronic. Stable wi th Xopenex. Will continue current treatment plan. - Has not been using her daily Symbicort. Orders: Comprehensive metabolic panel; Future [facility] 11-15-2024 Note - Chronic. Stable wi th Gabapentin. Will continue current treatment plan. - OARRS report reviewed with no discrepancies. CSA signed today. Orders: Comprehensive metabolic panel; Future [facility] 11-15-2024 Note - Chronic. Stable wi th Metoprolol. Will continue current treatment plan. Orders: Comprehensive metabolic panel; Future [facility] 11-15-2024 Note - Chronic. Stable wi th Paxil. Will continue current treatment plan. Orders: Comprehensive metabolic panel; Future [facility] 11-15-2024 Note - Chronic. Stable wi th Xopenex. Will continue current treatment plan. - Has not been using her daily Symbicort. Orders: Comprehensive metabolic panel; Future [facility] 11-15-2024 Note - Chronic. Stable wi th Paxil and PRN Clonazepam. Will continue current treatment plan. - OARRS report reviewed with no discrepancies. CSA signed today. Orders: Comprehensive metabolic panel; Future [facility] 11-15-2024 Note - Chronic. Stable wi th Nabumetone and Gabapentin. Will continue current treatment plan. - OARRS report reviewed with no discrepancies. CSA signed today. Orders: Comprehensive metabolic panel; Future [facility] 10-29-2024 Miscellaneous Notes Noted. Thank you for the update. Will gladly place a new referral for her when she finds out who is in her network. Name of caller: Megan Contact phone number: [phone] Relationship to Patient: patient Provider: Tracy CALDERON Practice: [facility] Chief Complaint/Reason for Call: Patient stated she received a message that behavioral health no longer will accept united health care insurance and she is upset and confused. Patient is going to call her insurance and see who is in network and she is scheduled to see Tracy on 11/15/24 and would like to discuss a referral to a new therapist at this appointment. Best time of day caller can be reached: any Patient advised that office/PCP has 24-48 business hours to return their call: No documented in this encounter [facility] 10-29-2024 Note Noted. Thank you for the update. Will gladly place a new referral for her when she finds out who is in her network. [facility] 10-29-2024 Telephone encounter Note Noted. Thank you for the update. Will gladly place a new referral for her when she finds out who is in her network. [facility] 10-29-2024 Telephone encounter Note Name of caller: Megan Contact phone number: [phone] Relationship to Patient: patient Provider: Tracy CALDERON Practice: [facility] Chief Complaint/Reason for Call: Patient stated she received a message that behavioral health no longer will accept united health care insurance and she is upset and confused. Patient is going to call her insurance and see who is in network and she is scheduled to see Tracy on 11/15/24 and would like to discuss a referral to a new therapist at this appointment. Best time of day caller can be reached: any Patient advised that office/PCP has 24-48 business hours to return their call: No [facility] 10-04-2024 History of Present illness Narrative Patient verified by last name and date of . Images from the original note were not included. 10/04/2024 Melissa Galvan (: 1970) is a 53 y.o. female , Established patient, here for evaluation of the following chief complaint(s): Med Refill and Health Maintenance (Dermatology referral- refuse/Colonoscopy- has referral /Mammogram- has order/Covid vaccine- not done/Hep b vaccine- refuse/Pcv 20 vaccine - refuse/Hiv/hep c screening- refuse) Assessment/Plan 1. Moderate episode of recurrent major depressive disorder (HCC) - Chronic, stable. Follow up with specialist as directed. Continue Paxil as prescribed. 2. Anxiety disorder, unspecified type - Chronic, stable. Follow up with specialist as directed. Continue Paxil and Klonopin as prescribed. 3. PTSD (post-traumatic stress disorder) - Chronic, stable. Follow up with specialist as directed. Continue Paxil and Klonopin as prescribed. 4. Mixed hyperlipidemia - rosuvastatin (Crestor) 5 MG tablet; Take 1 tablet (5 mg) by mouth daily., Starting Fri10/04/2024, Normal - Chronic. Stable with Rosuvastatin. Will continue current treatment plan. 5. Chronic obstructive pulmonary disease, unspecified COPD type (HCC) - montelukast (Singulair) 10 MG tablet; Take 1 tablet (10 mg) by mouth daily., Starting 10/04/2024, Normal - Symbicort 160-4.5 MCG/ACT inhaler; Inhale 2 puffs 2 times daily. Rinse mouth with water after use to reduce aftertaste and incidence of candidiasis. Do not swallow., Starting 10/04/2024, Normal - Chronic. Stable with Symbicort and Singulair. Will continue current treatment plan. 6. Atrial tachycardia (HCC) - metoprolol succinate XL (Toprol-XL) 50 MG 24 hr tablet; Take 1 tablet (50 mg) by mouth daily., Starting Fri10/04/2024, Normal - Chronic. Stable with Metoprolol. Will continue current treatment plan. 7. Gastroesophageal reflux disease, unspecified whether esophagitis present - pantoprazole (ProtoNix) 40 MG EC tablet; Take 1 tablet (40 mg) by mouth every morning (before breakfast)., Starting Fri10/04/2024, Normal - Chronic. Stable with Pantoprazole. Will continue current treatment plan. Follow up in 6 weeks (on 11/15/2024) for Next scheduled follow-up (already scheduled). Subjective History of Present Illness Megan presents today for follow-up on her chronic health conditions. Continues to follow-up with psych for her depression,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 Megan's labs were resulted with a message stating, An identification discrepancy exists between the requisition and the specimen. Can we look into this please? Thank you. Answer: The patient received the same message on her My Chart. She is calling for her test results. The patient states she is willing to come back in to repeat her labs. Please call the patient to advise. Call back time. Anytime documented in this encounter [facility] [employer] 05-12-2024 History of Present illness Narrative This document contains information received from the source organization and may not represent a complete record from that organization.Restricted notes were excluded Patient verified by last name and . documented in this encounter [facility] 05-12-2024 Telephone encounter Note I meant for Paulina to call [facility] on this. Discussed with Meg, she will be redrawn. [facility] [employer] 05-12-2024 Telephone encounter Note I am not sure I'm going to see if linda can look into this. [facility] 05-12-2024 Telephone encounter Note Is this something we can get taken care of with lab or does she need to get her labs redrawn? [facility] 05-12-2024 Telephone encounter Note I am assuming it is because we have her as Megan in [employer], but legal name is Melissa. [facility] 05-11-2024 Telephone encounter Note Did you draw these yesterday? If so can you please look into this thanks! [facility] 05-11-2024 Telephone encounter Note Message released to patient as written. Patient's further questions if applicable: Were all questions from office addressed or relayed to the patient from encounter: No Message Released: None of Megan's labs were resulted with a message stating, An identification discrepancy exists between the requisition and the specimen. Can we look into this please? Thank you. Answer: The patient received the same message on her My Chart. She is calling for her test results. The patient states she is willing to come back in to repeat her labs. Please call the patient to advise. Call back time. [employer] [facility] 05-10-2024 History of Present illness Narrative Patient verified by last name and date of . Images from the original note were not included. 05/10/2024 Melissa Galvan (: 1970) is a 53 y.o. female , Established patient, here for evaluation of the following chief complaint(s): Hip Pain, Follow-up (Xray- discuss referral to physical therapy and possible referral to orthopedic), and Health Maintenance (Hep c and hiv screening- refuse/Cologuard- has kit and not done yet/Hepb, pcv 20 vaccines- refuse/Mammogram- will give the number to call and schedule) ASSESSMENT/PLAN: 1. Hip pain, chronic, right - RIYA - C-reactive protein - Rheumatoid factor - RPR - Sedimentation rate, automated - Comprehensive metabolic panel - CBC auto differential - Recommended PT but declines at this time. Home exercises provided. - Will obtain blood work for further evaluation. - Continue Nabumetone as needed for pain relief. - Discussed signs and symptoms warranting follow up in the office- verbalized understanding. 2. Family history of rheumatoid arthritis - RIYA - C-reactive protein - Rheumatoid factor - RPR - Sedimentation rate, automated - Comprehensive metabolic panel - CBC auto differential - Will notify of blood work results. Follow up in about 26 weeks (around 11/08/2024) for AWV and fasting blood work. SUBJECTIVE/OBJECTIVE: HPI Idalia Guzman presents today with concerns of right sided hip pain. Symptoms have been ongoing for the past 3-4. Denies known inciting factors. Was seen on 02/23/24 due to the pain and was prescribed Nabumetone 500 mg twice a day- and this has helped a lot. Also had an x-ray of the hip on 03/15/24 that showed, No fracture or dislocation of the pelvis or right hip is identified. The right hip joint space is relatively well-preserved. The sacroiliac joints appear grossly unremarkable. No lytic or blastic bony lesions are seen. It was recommended she do PT and declines to do this. States she does not have a car and only gets a certain number of transportation visits per year from her insurance and does not want to use it on that. States her father had rheumatoid arthritis and would like tested for this. Health Maintenance: Hep c and HIV screening- refuse/Cologuard- has kit and not done yet/Hep B, PCV 20 vaccines- refuse/Mammogram- will give the number to call and schedule. Review of Systems Constitutional: Negative for chills and fever. Respiratory: Negative for chest tightness and shortness of breath. Cardiovascular: Negative for chest pain. Musculoskeletal: Positive for arthralgias (right hip). Negative for gait problem. Skin: Negative for color change. Neurological: Negative for weakness. Vitals: 05/10/24 0812 BP: 118/71 Pulse: 80 SpO2: 98% Weight: 105 lb 12.8 oz (48 kg) Height: 5' 7 (1.702 m) Body mass index is 16.57 kg/m . Physical Exam Constitutional: General: She is not in acute distress. Appearance: She is not ill-appearing or diaphoretic. Cardiovascular: Rate and Rhythm: Normal rate and regular rhythm. Heart sounds: Normal heart sounds. No murmur heard. No friction rub. Pulmonary: Effort: Pulmonary effort is normal. Musculoskeletal: Right hip: Tenderness (with internal rotation) present. No deformity or crepitus. Normal range of motion. Normal strength. Skin: General: Skin is warm and dry. Coloration: Skin is not pale. Findings: No erythema or rash. Neurological: Mental Status: She is alert and oriented to person, place, and time. Gait: Gait normal. Psychiatric: Mood and Affect: Mood normal. Behavior: Behavior normal. Thought Content: Thought content normal. Judgment: Judgment normal. Data Reviewed Labs: Imaging/Testing: Narrative & Impression Patient Name: MELISSA GALVAN : 1970 [facility]#: [id number] Exam Date/Time: 03/15/2024 10:10 Procedure: XR HIP 2 OR 3 VW RIGHT Ordering Provider: BOWDEN DARRELL Reason For Exam: right hip pain RIGHT HIP CLINICAL INDICATION: Right hip pain A single AP view of the pelvis followed by AP and lateral views of the right hip were obtained. COMPARISON: None FINDINGS: No fracture or dislocation of the pelvis or right hip is identified. The right hip joint space is relatively well-preserved. The sacroiliac joints appear grossly unremarkable. No lytic or blastic bony lesions are seen. IMPRESSION: No fracture or dislocation of the pelvis or right hip is seen. Report Dictated on Electronically Signed By: Sy Neil MD Electronically Signed Date/Time: 03/16/2024 7:29 PM EST An electronic signature was used to authenticate this note. WARD Lin CNP 05/10/2024 8:34 AM Venipuncture completed Patient was identified by name and date of -orders verified in [facility]. Site cleansed with alcohol swab and using a sterile needle, right AC accessed per [facility]'s policy and procedure. Bandage applied to site no bleeding or hematoma noted, patient tolerated well. X 1 attempt. Advised to leave bandage on for at least 20 minutes to prevent swelling and bruising. documented in this encounter [facility] 04-15-2024 Telephone encounter Note Patient scheduled, thank you. [facility] 04-15-2024 Miscellaneous Notes Patient scheduled, thank you. Name of Caller: Megan Pugh Contact Phone Number: [phone] Reason for Appointment: patient is needing to make a new patient appt and has a referral. Please advise. Office Name: Dermatology Medication Refills need, if any: no Medication Name: no documented in this encounter [facility] 04-15-2024 Telephone encounter Note Name of Caller: Megan Pugh Contact Phone Number: [phone] Reason for Appointment: patient is needing to make a new patient appt and has a referral. Please advise. Office Name: Dermatology Medication Refills need, if any: no Medication Name: no [facility] 04-02-2024 Telephone encounter Note [facility] 04-02-2024 Miscellaneous Notes Prescription Request: Last medication check: 02/23/24 Last physical exam: 02/20/23 Next scheduled appointment: SCHEDULED WITH A NEW PCP ON 04/08/2024 Last date of refill on this medication 11/26/23 documented in this encounter [facility] 04-02-2024 Telephone encounter Note Prescription Request: Last medication check: 02/23/24 Last physical exam: 02/20/23 Next scheduled appointment: SCHEDULED WITH A NEW PCP ON 04/08/2024 Last date of refill on this medication 11/26/23 [facility] 04-01-2024 Telephone encounter Note Reviewed chart. Refill appropriate. RX sent. [facility] 04-01-2024 Miscellaneous Notes Reviewed chart. Refill appropriate. RX sent. I really have no idea- that is what was sent from pharmacy and they should be 90 day for mail Any reason why these are 80 tablets? Prescription Request: Last medication check: 02/23/24 Last physical exam: 02/20/23 Next scheduled appointment: none Last date of refill on this medication 11/26/23 90 day 1 refill documented in this encounter [facility] 04-01-2024 Telephone encounter Note I really have no idea- that is what was sent from pharmacy and they should be 90 day for mail [facility] 04-01-2024 Telephone encounter Note Any reason why these are 80 tablets? [facility] 04-01-2024 Telephone encounter Note Prescription Request: Last medication check: 02/23/24 Last physical exam: 02/20/23 Next scheduled appointment: none Last date of refill on this medication 11/26/23 90 day 1 refill [facility] 03-15-2024 Telephone encounter Note Prescription Request: Last medication check: 02/23/2024 Last physical exam: 02/20/2023 Next scheduled appointment: 03/19/2024 Last date of refill on this medication: 02/23/2024 [facility] 03-15-2024 Miscellaneous Notes Prescription Request: Last medication check: 02/23/2024 Last physical exam: 02/20/2023 Next scheduled appointment: 03/19/2024 Last date of refill on this medication: 02/23/2024 documented in this encounter [facility] 02-23-2024 Evaluation + Plan note Associated Problem(s): Right hip pain We will obtain an x-ray. Stop naproxen and begin nabumetone 500 mg twice a day [facility] 02-23-2024 Miscellaneous Notes Associated Problem(s): Right hip pain We will obtain an x-ray. Stop naproxen and begin nabumetone 500 mg twice a day Associated Problem(s): Weight loss She continues to be significantly underweight, we will start her on Remeron 15 mg a day at bedtime to help boost her appetite to see if we can get her to gain some weight. Associated Problem(s): Primary insomnia This has been made worse by her hip pain, we will start her on Remeron 15 mg daily at bedtime Associated Problem(s): Neuropathy Stable, continue gabapentin, Rx sent, OARRS report done, no inconsistencies. CS agreement in place documented in this encounter [facility] 02-23-2024 Evaluation + Plan note Associated Problem(s): Weight loss She continues to be significantly underweight, we will start her on Remeron 15 mg a day at bedtime to help boost her appetite to see if we can get her to gain some weight. [facility] 02-23-2024 Evaluation + Plan note Associated Problem(s): Primary insomnia This has been made worse by her hip pain, we will start her on Remeron 15 mg daily at bedtime [facility] 02-23-2024 Evaluation + Plan note Associated Problem(s): Neuropathy Stable, continue gabapentin, Rx sent, OARRS report done, no inconsistencies. CS agreement in place [facility] 02-23-2024 History of Present illness Narrative Patient verified by last name and date of . Images from the original note were not included. 02/23/2024 Melissa Galvan (: 1970) is a 53 y.o. female , Established patient, here for evaluation of the following chief complaint(s): Hip Pain (Right- can hardly sleep due to pain ) and Health Maintenance (Colonoscopy- has referral /Dermatology- agree to referral/Mammogram- has order will call to sched/Flu vaccine- refuse/Covid vaccine- not done) ASSESSMENT/PLAN: 1. Neuropathy Assessment & Plan: Stable, continue gabapentin, Rx sent, OARRS report done, no inconsistencies. CS agreement in place Orders: - gabapentin (Neurontin) 600 MG tablet; Take 1 tablet (600 mg) by mouth 3 times daily., Starting 02/23/2024, Normal 2. Right hip pain Assessment & Plan: We will obtain an x-ray. Stop naproxen and begin nabumetone 500 mg twice a day Orders: - XR hip right 2 or 3 views 3. Weight loss Assessment & Plan: She continues to be significantly underweight, we will start her on Remeron 15 mg a day at bedtime to help boost her appetite to see if we can get her to gain some weight. 4. Primary insomnia Assessment & Plan: This has been made worse by her hip pain, we will start her on Remeron 15 mg daily at bedtime 5. Screening exam for skin cancer - Ambulatory referral to Dermatology 6. Refused influenza vaccine Follow up in 4 weeks (on 03/22/2024), or at scheduled appt. SUBJECTIVE/OBJECTIVE: HPI -Megan comes in today for complaining of right hip pain she says it feels like an ice pick is in there grinding. She has she walks everywhere because she does not have a car and is getting to the point where it is keeping her from going places. She also needs a refill on her gabapentin that she takes for her neuropathy but she says that does not help her hip pain and she also is on medical marijuana but she says that does not help her pain either. She is significantly underweight and she is wondering if there is something that she could take to help boost her appetite and she also said she would like something to help her sleep. Review of Systems Constitutional: Negative for chills and fever. Respiratory: Negative for shortness of breath. Cardiovascular: Negative for chest pain and palpitations. Musculoskeletal: Positive for arthralgias and gait problem. Neurological: Positive for numbness. Negative for weakness. Vitals: 02/23/24 1326 BP: 112/71 Pulse: 62 SpO2: 97% Weight: 102 lb 12.8 oz (46.6 kg) Height: 5' 7 (1.702 m) Physical Exam Vitals and nursing note reviewed. Constitutional: General: She is not in acute distress. Appearance: Normal appearance. HENT: Head: Normocephalic and atraumatic. Mouth/Throat: Mouth: Mucous membranes are moist. Pharynx: Oropharynx is clear. Eyes: Extraocular Movements: Extraocular movements intact. Pupils: Pupils are equal, round, and reactive to light. Cardiovascular: Rate and Rhythm: Normal rate and regular rhythm. Heart sounds: Normal heart sounds. No murmur heard. Pulmonary: Effort: Pulmonary effort is normal. Breath sounds: Normal breath sounds. Musculoskeletal: Cervical back: Neck supple. Comments: Right hip with normal range of motion she does have some pain with internal/external rotation of the hip and she has pain to palpation of the posterior aspect of the hip joint. Lymphadenopathy: Cervical: No cervical adenopathy. Neurological: Mental Status: She is alert. An electronic signature was used to authenticate this note. Dalton Bowden MD 02/23/2024 4:00 PM documented in this encounter [facility] 02-20-2024 Telephone encounter Note S: Patient spoke with [facility] nurse regarding hip pain B: Onset of symptoms/concern ongoing A: Patient states she is having hip pain that has been going on for awhile now and she scheduled an appointment on line but was wondering if he had any openings today. Patient advised no openings today and verbalized understanding. Denies any redness, swelling or fevers associated with the hip. States she believes it is arthritis as it is deep in the bone that hurts. R: Will wait until Friday and given home care advice per protocol. Patient understands care advice. No further needs at this time. Patient instructed to call back with new or worsening symptoms. Reason for Disposition Hip pain is a chronic symptom (recurrent or ongoing AND present > 4 weeks) Protocols used: Hip [id number] [facility] 02-20-2024 Miscellaneous Notes S: Patient spoke with [facility] nurse regarding hip pain B: Onset of symptoms/concern ongoing A: Patient states she is having hip pain that has been going on for awhile now and she scheduled an appointment on line but was wondering if he had any openings today. Patient advised no openings today and verbalized understanding. Denies any redness, swelling or fevers associated with the hip. States she believes it is arthritis as it is deep in the bone that hurts. R: Will wait until Friday and given home care advice per protocol. Patient understands care advice. No further needs at this time. Patient instructed to call back with new or worsening symptoms. Reason for Disposition Hip pain is a chronic symptom (recurrent or ongoing AND present > 4 weeks) Protocols used: Hip [id number] documented in this encounter [facility] 02-20-2024 Telephone encounter Note [facility] 02-20-2024 Miscellaneous Notes Was sent on 11/26/2023 for 90 days w/1 refill documented in this encounter [facility] 02-20-2024 Telephone encounter Note Was sent on 11/26/2023 for 90 days w/1 refill [facility] 12-30-2023 Telephone encounter Note Prescription Request: Last medication check: 11/26/23 Last physical exam: 02/20/23 Next scheduled appointment: 03/19/24 Last date of refill on this medication 07/28/23 100 tablets 1 refill [facility] 12-30-2023 Miscellaneous Notes Prescription Request: Last medication check: 11/26/23 Last physical exam: 02/20/23 Next scheduled appointment: 03/19/24 Last date of refill on this medication 07/28/23 100 tablets 1 refill documented in this encounter [facility] 11-26-2023 History of Present illness Narrative Patient verified by last name and . Images from the original note were not included. 11/26/2023 Melissa Galvan (: 1970) is a 53 y.o. female , Established patient, here for evaluation of the following chief complaint(s): Depression and Anxiety (Would like a letter for an emotional support animal. ) ASSESSMENT/PLAN: 1. Moderate episode of recurrent major depressive disorder (HCC) - Symptoms stable. Letter provided for KRISTOPHER. 2. Anxiety disorder, unspecified type - Symptoms stable. Letter provided for KRISTOPHER. 3. Acquired hypothyroidism - levothyroxine (Synthroid, Levoxyl) 75 MCG tablet; Take 1 tablet (75 mcg) by mouth daily. One tablet daily, except on Sundays take 2 tablets., Starting Fri11/26/2023, Normal - Stable. Follow up with specialist as directed. 4. Mixed hyperlipidemia - rosuvastatin (Crestor) 5 MG tablet; Take 1 tablet (5 mg) by mouth daily., Starting Fri11/26/2023, Normal - Stable with Rosuvastatin. Will continue current treatment plan. 5. Chronic obstructive pulmonary disease, unspecified COPD type (HCC) - Symbicort 160-4.5 MCG/ACT inhaler; Inhale 2 puffs in the morning and 2 puffs in the evening., Starting Fri11/26/2023, Normal - levalbuterol (Xopenex) 45 MCG/ACT inhaler; Inhale 2 puffs every 6 hours as needed for wheezing or shortness of breath., Starting Fri11/26/2023, Normal - Stable with Symbicort and Xopenex. Will continue current treatment plan. 6. Chronic pain syndrome - naproxen (Naprosyn) 500 MG tablet; Take 1 tablet (500 mg) by mouth 2 times daily as needed for mild pain (1-3) or moderate pain (4-6)., Starting Fri11/26/2023, Normal - Stable with PRN Naproxen. Will continue current treatment plan. Follow up in about 4 months (around 03/27/2024) for AWV and fasting blood work. SUBJECTIVE/OBJECTIVE: HPI - Megan presents today to discuss getting a letter for her cat, Jenni, to be an emotional support animal. Has had Jenni for the past 4 years. Struggles with depression and anxiety and lives alone. Jenni helps keep her company and feel less alone. States she feels scared all of the time and having Jenni gives her comfort in her home. Is also requesting refills on medications for her other chronic health conditions. Her TSH was recently elevated at 10.2 mIU/L and was instructed by Dr. Sarmiento to increase to two tables of her Levothyroxine on Sundays. Is doing well on her Rosuvastatin for her hyperlipidemia and her inhalers for her COPD. The Naproxen helps with her chronic pain. Review of Systems Respiratory: Negative for shortness of breath. Cardiovascular: Negative for chest pain. Musculoskeletal: Positive for back pain. Psychiatric/Behavioral: Positive for dysphoric mood. Negative for self-injury and suicidal ideas. The patient is nervous/anxious. Vitals: 11/26/23 1035 BP: 96/64 Pulse: 68 SpO2: 96% Weight: 102 lb (46.3 kg) Height: 5' 7 (1.702 m) Body mass index is 15.98 kg/m . Last 3 ANIYA-7 Scores 11/26/2023 1100 ANIYA-7 Total Score: 8 Last 3 PHQ-2 Scores 11/26/2023 1115 Patient Health Questionnaire-2 Score: 0 Last 3 PHQ-9 Scores 11/26/2023 1115 Patient Health Questionnaire-9 Score: 4 Physical Exam Constitutional: General: She is not in acute distress. Appearance: She is not ill-appearing or diaphoretic. Cardiovascular: Rate and Rhythm: Normal rate and regular rhythm. Heart sounds: Normal heart sounds. No murmur heard. No friction rub. Pulmonary: Effort: Pulmonary effort is normal. Breath sounds: Normal breath sounds. No wheezing, rhonchi or rales. Skin: General: Skin is warm and dry. Coloration: Skin is not pale. Findings: No erythema or rash. Neurological: Mental Status: She is alert and oriented to person, place, and time. Psychiatric: Mood and Affect: Mood normal. Behavior: Behavior normal. Thought Content: Thought content normal. Judgment: Judgment normal. An electronic signature was used to authenticate this note. WARD Lin CNP 11/26/2023 11:16 AM documented in this encounter [facility] 11-25-2023 Telephone encounter Note Patient is advised..Leisa Natarajan LPN [facility] 11-25-2023 Miscellaneous Notes Patient is advised..Leisa Natarajan LPN Other blood work is normal except Thyroid function. We need to adjust her thyroid medication. She is advised to take 1 tab of thyroid med daily except Sundays- take 2 tabs. Repeat levels in 8-12 weeks. Pt called stating that she got her lab results and would like to review them. Please advise, Francy Bailey documented in this encounter [facility] 11-25-2023 Telephone encounter Note Other blood work is normal except Thyroid function. We need to adjust her thyroid medication. She is advised to take 1 tab of thyroid med daily except Sundays- take 2 tabs. Repeat levels in 8-12 weeks. [facility] 11-25-2023 Telephone encounter Note Pt called stating that she got her lab results and would like to review them. Please advise, Francy Leo [facility] 11-24-2023 Instructions Ning Barksdale APRN.TOM - 11/24/2023 2:[address] Lung Screen Results The CT scan that you will have done will show if you have any nodules (small spots) in your lungs that are suspicious for cancer. Around 90% of the patients who have this scan done are found to have at least one nodule. Most nodules are benign (not cancer) and of no harm to you at all. A specialist will make a scientific evaluation about whether or not a nodule is worrisome based on its size and shape. The radiologist who will read your scan will put it into one of four categories: LUNG-RADS Category Description Overall Probability of Malignancy Recommended Follow-Up 1 Negative No nodules and definitely benign (non-cancerous nodules) Essentially 0. 1 Year - Follow-up Low dose CT 2 Benign Appearance or Behavior Nodules with a very low likelihood of becoming cancer due to size or lack of growth Less than 1% 1 Year - Follow-up Low dose CT 3 Probably Benign Probably benign finding, short term follow-up recommended 1 to 2% 6 Months - Follow-up Low dose CT 4 Suspicious Findings for which additional diagnostic testing and/or biopsy is recommended Will be calculated based on nodule characteristics. Dependent on what is seen on the exam. (3 month follow-up CT, PET-CT, or biopsy) 0 Incomplete Findings suggestive of an inflammatory or infectious process AND/OR part of the lung cannot be evaluated Additional lung cancer screening CT imaging needed AND/OR comparison with prior chest CT imaging At times, we may see something outside of the lungs on the scan that could be a health concern. Below are some of the most common findings: S Clinically Significant or Potentially Clinically Significant Findings (non lung cancer) Referral or additional imaging/labs depending on result. Approximately 10% of people receive this result. Coronary Artery Calcifications (Moderate or Severe) - Referral to cardiology for further work-up and recommendations. Thyroid Nodule - TSH level and Thyroid Ultrasound dependent on size, referral to endocrinology. Adrenal Nodule - blood work and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 Take 500 mg by mouth two times a day with meals. pantoprazole DR (PROTONIX) 40 mg tablet Take 40 mg by mouth once daily. rosuvastatin (CRESTOR) 5 mg tablet Take 5 mg by mouth once daily. prednisoLONE acetate (PRED FORTE) 1 % ophthalmic suspension Use 1 Drop in the left eye three times a day. moxifloxacin (VIGAMOX) 0.5 % ophthalmic solution Use 3 Drops in the left eye three times a day. keTORolac (ACULAR) 0.5 % ophthalmic solution Use 2 Drops in the left eye four times daily. azithromycin (ZITHROMAX) 250 mg tablet Take 500 mg by mouth one time only. MEDICATION, NON-DATABASE Marijuana card-takes pill form metoprolol succinate ER (TOPROL XL) 50 mg 24 hr tablet Take 1 tablet by mouth once daily. budesonide-formoterol (SYMBICORT) 160-4.5 mcg/actuation inhaler Inhale 1 Puff as instructed twice daily. levalbuterol tartrate HFA (XOPENEX HFA) 45 mcg/actuation inhaler Inhale 1-2 Puffs as instructed every 4 hours as needed. montelukast (SINGULAIR) 10 mg tablet Take 1 tablet by mouth daily at bedtime. tiotropium (SPIRIVA WITH HANDIHALER) 18 mcg inhalation capsule Inhale 1 capsule as instructed once daily. DULoxetine (CYMBALTA) 60 mg capsule Take 1 capsule by mouth once daily. ibuprofen (MOTRIN) 800 mg tablet Take 1 tablet by mouth every 8 hours as needed for Pain. gabapentin (NEURONTIN) 300 mg capsule Take 2 capsules by mouth three times daily. traZODone (DESYREL) 50 mg tablet Take 1 tablet by mouth daily at bedtime. tamsulosin ER (FLOMAX) 0.4 mg cp24 Take 1 capsule by mouth daily at bedtime. No current facility-administered medications for this visit. REVIEW OF SYSTEMS Review of Systems Constitutional: Positive for malaise/fatigue. HENT: Negative for hoarse voice. Eyes: Negative for redness. Respiratory: Positive for cough. Negative for hemoptysis, sputum production and wheezing. Cardiovascular: Negative for palpitations and leg swelling. Musculoskeletal: Positive for joint pain. Neurological: Negative for dizziness and headaches. PHYSICAL EXAMINATION VIDEO EXAM: (if completed, performed via video enabled technology) Video Physical examination limited due to the restrictions of audio/visual virtual visit. Physical Exam Constitutional: Appearance: She is not ill-appearing or diaphoretic. HENT: Head: Normocephalic and atraumatic. Pulmonary: Effort: Pulmonary effort is normal. No respiratory distress. Neurological: Mental Status: She is alert. Psychiatric: Mood and Affect: Mood normal. ASSESSMENT & PLAN: ASSESSMENT/PLAN: 1. Pain of right hip - ICD9: 719.45, ICD10: M25.551 (primary diagnosis) - CONSULT TO ORTHOPAEDICS 2. Screening for depression - ICD9: V79.0, ICD10: Z13.31 - DEPRESSION SCREENING 3. Chronic obstructive pulmonary disease, unspecified COPD type (HCC) - ICD9: 496, ICD10: J44.9 Stable, continue symbicort and spiriva 4. Neuropathy - ICD9: 355.9, ICD10: G62.9 Continue gabapentin and cymbalta 5. Other fatigue - ICD9: 780.79, ICD10: R53.83 - COMPLETE BLOOD COUNT AND DIFFERENTIAL - COMPREHENSIVE METABOLIC PANEL - THYROID STIMULATING HORMONE 6. Hyperlipidemia, unspecified hyperlipidemia type - ICD9: 272.4, ICD10: E78.5 - Control undetermined, due for labs - Continue current medications - Counseled on healthy diet and regular exercise - LIPID PANEL BASIC 7. Insomnia, unspecified type - ICD9: 780.52, ICD10: G47.00 Continue trazodone 8. Tobacco use - ICD9: 305.1, ICD10: Z72.0 Quit 2 months ago No problem-specific Assessment & Plan notes found for this encounter. Raheem Sarmiento MD documented in this encounter [facility] 11-05-2023 Nurse Note Patient would like to establish care and have her hips-back addressed today. Patient states she cannot take pain pills..Leisa Natarajan LPN [facility] 11-05-2023 Nurse Note Patient would like to establish care and have her hips-back addressed today. Patient states she cannot take pain pills..Leisa Natarajan LPN documented in this encounter [facility] 10-27-2023 Note Formatting of this n ote might be different from the original. Discharged to home . Accompanied by family . AVS and education reviewed with patient and family, both verbalized understanding. Mode of transportation private vehicle Belongings sent. [facility] 10-27-2023 Note Formatting of this n ote might be different from the original. Discharged to home . Accompanied by family . AVS and education reviewed with patient and family, both verbalized understanding. Mode of transportation private vehicle Belongings sent. [facility] 10-27-2023 Miscellaneous Notes Discharged to home . Accompanied by family . AVS and education reviewed with patient and family, both verbalized understanding. Mode of transportation private vehicle Belongings sent. Operative Report NAME: Melissa Galvan : 1970 AGE: 52 y.o. SURGEON: Rosa Montiel M.D. OPERATIVE EYE: left PREOPERATIVE DIAGNOSIS: 1. Nuclear sclerotic cataract. POSTOPERATIVE DIAGNOSIS: 1. Nuclear sclerotic cataract. OPERATION: Cataract extraction by phacoemulsification with placement of posterior chamber intraocular lens implant. HEAD BANQUET WAITER/WAITRESS: See operating room record CLEAN UP HELPER BANQUET: See operating room record ANESTHESIA: Local with topical tetracaine drops and monitored anesthesia care. COMPLICATIONS: None. INDICATIONS: as delineated PROCEDURE: The patient was brought to the operating room, placed in supine position. Attention was given to the operative eye. Under monitored anesthesia care, multiple drops of topical tetracaine were administered. The eye was then prepped and draped in the usual sterile ophthalmic fashion. A wire lid speculum was placed in the operative microscope was used. A 1.0 mm slide port blade was then used to create paracentesis at the 2 o'clock position. Through this incision, 2% lidocaine preservative-free was instilled into the anterior chamber. Following this, Viscoelastic was then used to inflate the anterior chamber and coat the endothelial surface. A 2.4 mm microkeratome was then used to create a triplanar clear corneal incision at the 11 o'clock position. A pre-bent cystotome was then used to initiate an anterior capsulorrhexis. A Utrata forceps was then used to complete the capsulorrhexis and a curvilinear fashion. Balanced salt solution on a flat-tipped cannula was then used to perform hydrodissection and hydrodelineation of the lens. It was confirmed that the lens was freely mobile within the capsular bag phacoemulsification was then performed in a divide and conquer manner to remove the lens nucleus. Phacoemulsification time was CDE 2.86. Automated irrigation and aspiration was then performed to remove all cortical remnants. Capsular bag was inflated using Provisc. The lens injector was then used to place an Akreos MI60L +22.00 diopter intraocular lens directly into the capsular bag. It was rotated in the proper position using the Zachary wand. The residual Viscoelastic was then removed using automated irrigation and aspiration. The wounds were hydrated using balanced salt solution. There were check for leaks and none were found. Topical antibiotic drops and antibiotic/steroid ointment were placed. The eye was patched and shielded. The patient was transferred to the postanesthesia care unit in good condition. Rosa Montiel MD 10/27/23 1:05 PM [facility] - Patient Pre-procedure Instructions [address] [place] [address] [address] May shower/brush teeth. Leave valuables/jewelry at home. No makeup, lotion, powder, deodorant or body sprays. No contact lenses No piercings or dark nail anguillan Sleep Apnea: If yes, please bring CPAP machine no solid food after midnight before procedure. Clear liquids only - up to 2 hours prior to your ARRIVAL time (water, clear juice, Gatorade, coffee/tea with no milk/sugar, no mints gum or candy) If of age, you may need to undergo a test Medications to take the morning of surgery Take the following medications: morning medications without limitations If you are taking Ozempic or Trulicity please stop this medication 7 days before your scheduled procedure. If you are a diabetic and on additional diabetic medication please contact your doctor for instructions on how to take your other diabetic medications during the bowel prep If you take blood thinners or aspirin, follow instructions given to you by your surgeon You may take your prescription pain medication, you may take Tylenol for pain. Do not use/smoke THC or drink alcohol in the 24 hours prior to your arrival time. Please Bring your [employer] T[employer] Cutter's license/photo ID, insurance card, eye drops/sunglasses, inhalers if applicable If you have a Medical Power of Diesel Motor Mechanic, living will, or an advanced directive, please bring a copy with you. We are required to resuscitate and transfer you to the hospital along with your directive. If you need a work excuse, please reach out to your surgeon's office. You must have a fuel truck driver arranged. Uber, Lyft, taxi, public transit is not sufficient unless you have someone accompanying you. documented in this encounter [facility] 10-27-2023 Hospital Discharge instructions Rosa Montiel MD - 10/27/2023 1:05 PM EDT Post-Operative Cataract Instructions You may take the patch and shield off and start taking eye drops FOUR hours after leaving the hospital. Your vision will be blurry. Starting drops will accelerate your healing process. After using the eye drops, replace the metal or plastic eye shield over the operative eye using a single piece of take Do NOT reapply the cotton patch. PREDNISOLONE ACETATE 1%: Apply 1 drop to the surgical eye EVERY HOUR while awake. MOXIFLOXACIN: Apply 1 drop to the surgical eye EVERY 2 HOURS while awake. KETOROLAC: Apply 1 drop to the surgical eye EVERY 2 HOURS while awake. Wait 5 minutes in between eye drops. The order does not matter. Continue taking the drops in this manner until your appointment tomorrow. What to Expect at Home Your Recovery: After surgery, your eye may be sore, it may feel scratchy, sticky, or uncomfortable. It may also water more than usual. Most people see better 1 to 3 days after surgery. But it could take 3 to 10 weeks to get the full benefits of surgery and to see as clearly as possible. Your doctor may send you home with a bandage, patch, or clear shield on your eye. This will keep you from rubbing your eye. Your doctor will also give you eyedrops to help your eye heal. Use them exactly as directed. You can read or watch TV right away, but things may look blurry. Most people are able to return to work or their normal routine in 1 to 3 days. After your eye heals, you may still need to wear glasses, especially for reading. This care sheet gives you a general idea about how long it will take for you to recover. But each person recovers at a different pace. Follow the steps below to get better as quickly as possible. How can you care for yourself at home? Activity Rest when you feel tired. Getting enough sleep will help you recover. You may have trouble judging distances for a few days. Move slowly, and be careful going up and down stairs and pouring hot liquids. Ask for help if you need it. Ask your doctor when it is okay to drive. Wear your eye bandage, patch, or shield for as long as your doctor recommends. You may only need to wear it when you sleep. You can shower or wash your hair the day after surgery. Keep water, soap, shampoo, hair spray, and shaving lotion out of your eye, especially for the first week. Do not rub or put pressure on your eye for at least 1 week. Do not wear eye makeup for 1 to 2 weeks. You may also want to avoid face cream or lotion. Do not get your hair colored or permed for 10 days after surgery. Do not bend over or do any strenuous activities, such as biking, jogging, weight lifting, or aerobic exercise, for 2 weeks or until your doctor says it is okay. Avoid swimming, hot tubs, gardening, and dusting for 1 to 2 weeks. Wear sunglasses on bright days for at least 1 year after surgery. Medicines You can resume all your regular medicines. She will also give you instructions about taking any new medicines. Follow your doctor's instructions for when to use your eyedrops. Always wash your hands before you put your drops in. To put in eyedrops: -Tilt your head back, and pull your lower eyelid down with one finger. -Drop the medicine inside the lower lid. -Close your eye for 30 to 60 seconds to let the drops absorb. -Do not touch the dropper tip to your eyelashes or any other surface. Follow your doctor's instructions for taking pain medicines. Follow-up care is a omalley part of your treatment and safety. Be sure to make and go to all appointments, and call your doctor if you are having problems. It's also a good idea to know your test results and keep a list of the medicines you take. When should you call for help? Call 911 anytime you think you may need emergency care. For example, call if: You passed out (lost consciousness). You have severe trouble breathing. You have sudden chest pain and shortness of breath, or you cough up blood. Call your doctor now or seek immediate medical care if: You have eye pain. You have pus draining from your eye. Your vision gets worse. Your eye is still red and bloodshot after 3 or 4 days. You notice new floaters, flashes of light, or changes in your field of vision. Watch closely for changes in your health, and be sure to contact your doctor if you have any problems. documented in this encounter [facility] 10-27-2023 Note Formatting of this n ote might be different from the original. Operative Report NAME: Melissa Alarconhip : 1970 AGE: 52 y.o. SURGEON: Rosa Montiel M.D. OPERATIVE EYE: left PREOPERATIVE DIAGNOSIS: 1. Nuclear sclerotic cataract. POSTOPERATIVE DIAGNOSIS: 1. Nuclear sclerotic cataract. OPERATION: Cataract extraction by phacoemulsification with placement of posterior chamber intraocular lens implant. HEAD BANQUET WAITER/WAITRESS: See operating room record CLEAN UP HELPER BANQUET: See operating room record ANESTHESIA: Local with topical tetracaine drops and monitored anesthesia care. COMPLICATIONS: None. INDICATIONS: as delineated PROCEDURE: The patient was brought to the operating room, placed in supine position. Attention was given to the operative eye. Under monitored anesthesia care, multiple drops of topical tetracaine were administered. The eye was then prepped and draped in the usual sterile ophthalmic fashion. A wire lid speculum was placed in the operative microscope was used. A 1.0 mm slide port blade was then used to create paracentesis at the 2 o'clock position. Through this incision, 2% lidocaine preservative-free was instilled into the anterior chamber. Following this, Viscoelastic was then used to inflate the anterior chamber and coat the endothelial surface. A 2.4 mm microkeratome was then used to create a triplanar clear corneal incision at the 11 o'clock position. A pre-bent cystotome was then used to initiate an anterior capsulorrhexis. A Utrata forceps was then used to complete the capsulorrhexis and a curvilinear fashion. Balanced salt solution on a flat-tipped cannula was then used to perform hydrodissection and hydrodelineation of the lens. It was confirmed that the lens was freely mobile within the capsular bag phacoemulsification was then performed in a divide and conquer manner to remove the lens nucleus. Phacoemulsification time was CDE 2.86. Automated irrigation and aspiration was then performed to remove all cortical remnants. Capsular bag was inflated using Provisc. The lens injector was then used to place an Akreos MI60L +22.00 diopter intraocular lens directly into the capsular bag. It was rotated in the proper position using the Zachary wand. The residual Viscoelastic was then removed using automated irrigation and aspiration. The wounds were hydrated using balanced salt solution. There were check for leaks and none were found. Topical antibiotic drops and antibiotic/steroid ointment were placed. The eye was patched and shielded. The patient was transferred to the postanesthesia care unit in good condition. Rosa Montiel MD 10/27/23 1:05 PM [facility] 10-27-2023 Note Formatting of this n ote might be different from the original. Operative Report NAME: Melissa Galvan : 1970 AGE: 52 y.o. SURGEON: Rosa Montiel M.D. OPERATIVE EYE: left PREOPERATIVE DIAGNOSIS: 1. Nuclear sclerotic cataract. POSTOPERATIVE DIAGNOSIS: 1. Nuclear sclerotic cataract. OPERATION: Cataract extraction by phacoemulsification with placement of posterior chamber intraocular lens implant. HEAD BANQUET WAITER/WAITRESS: See operating room record CLEAN UP HELPER BANQUET: See operating room record ANESTHESIA: Local with topical tetracaine drops and monitored anesthesia care. COMPLICATIONS: None. INDICATIONS: as delineated PROCEDURE: The patient was brought to the operating room, placed in supine position. Attention was given to the operative eye. Under monitored anesthesia care, multiple drops of topical tetracaine were administered. The eye was then prepped and draped in the usual sterile ophthalmic fashion. A wire lid speculum was placed in the operative microscope was used. A 1.0 mm slide port blade was then used to create paracentesis at the 2 o'clock position. Through this incision, 2% lidocaine preservative-free was instilled into the anterior chamber. Following this, Viscoelastic was then used to inflate the anterior chamber and coat the endothelial surface. A 2.4 mm microkeratome was then used to create a triplanar clear corneal incision at the 11 o'clock position. A pre-bent cystotome was then used to initiate an anterior capsulorrhexis. A Utrata forceps was then used to complete the capsulorrhexis and a curvilinear fashion. Balanced salt solution on a flat-tipped cannula was then used to perform hydrodissection and hydrodelineation of the lens. It was confirmed that the lens was freely mobile within the capsular bag phacoemulsification was then performed in a divide and conquer manner to remove the lens nucleus. Phacoemulsification time was CDE 2.86. Automated irrigation and aspiration was then performed to remove all cortical remnants. Capsular bag was inflated using Provisc. The lens injector was then used to place an Akreos MI60L +22.00 diopter intraocular lens directly into the capsular bag. It was rotated in the proper position using the Zachary wand. The residual Viscoelastic was then removed using automated irrigation and aspiration. The wounds were hydrated using balanced salt solution. There were check for leaks and none were found. Topical antibiotic drops and antibiotic/steroid ointment were placed. The eye was patched and shielded. The patient was transferred to the postanesthesia care unit in good condition. Rosa Montiel MD 10/27/23 1:05 PM [facility] 10-23-2023 History and physical note Interval History and Physical I have interviewed and examined the patient and reviewed the recent History and Physical. There have been no changes to the recent H&P documentation. The H&P resides on a progress note on this patient's chart. The patient understands the planned operation and its associated risks and benefits and agrees to proceed. The surgical consent form has been signed. [facility] 10-23-2023 History and physical note Interval History and Physical I have interviewed and examined the patient and reviewed the recent History and Physical. There have been no changes to the recent H&P documentation. The H&P resides on a progress note on this patient's chart. The patient understands the planned operation and its associated risks and benefits and agrees to proceed. The surgical consent form has been signed. documented in this encounter [facility] 10-23-2023 Note Formatting of this n ote might be different from the original. [facility] - Patient Pre-procedure Instructions [address] [place] [address] [address] May shower/brush teeth. Leave valuables/jewelry at home. No makeup, lotion, powder, deodorant or body sprays. No contact lenses No piercings or dark nail anguillan Sleep Apnea: If yes, please bring CPAP machine no solid food after midnight before procedure. Clear liquids only - up to 2 hours prior to your ARRIVAL time (water, clear juice, Gatorade, coffee/tea with no milk/sugar, no mints gum or candy) If of age, you may need to undergo a test Medications to take the morning of surgery Take the following medications: morning medications without limitations If you are taking Ozempic or Trulicity please stop this medication 7 days before your scheduled procedure. If you are a diabetic and on additional diabetic medication please contact your doctor for instructions on how to take your other diabetic medications during the bowel prep If you take blood thinners or aspirin, follow instructions given to you by your surgeon You may take your prescription pain medication, you may take Tylenol for pain. Do not use/smoke THC or drink alcohol in the 24 hours prior to your arrival time. Please Bring your [employer] T[employer] Cutter's license/photo ID, insurance card, eye drops/sunglasses, inhalers if applicable If you have a Medical Power of Diesel Motor Mechanic, living will, or an advanced directive, please bring a copy with you. We are required to resuscitate and transfer you to the hospital along with your directive. If you need a work excuse, please reach out to your surgeon's office. You must have a fuel truck driver arranged. Uber, Lyft, taxi, public transit is not sufficient unless you have someone accompanying you. [facility] [employer] 10-23-2023 Note Formatting of this n ote might be different from the original. [facility] - Patient Pre-procedure Instructions [address] [place] [address] [address] May shower/brush teeth. Leave valuables/jewelry at home. No makeup, lotion, powder, deodorant or body sprays. No contact lenses No piercings or dark nail anguillan Sleep Apnea: If yes, please bring CPAP machine no solid food after midnight before procedure. Clear liquids only - up to 2 hours prior to your ARRIVAL time (water, clear juice, Gatorade, coffee/tea with no milk/sugar, no mints gum or candy) If of age, you may need to undergo a test Medications to take the morning of surgery Take the following medications: morning medications without limitations If you are taking Ozempic or Trulicity please stop this medication 7 days before your scheduled procedure. If you are a diabetic and on additional diabetic medication please contact your doctor for instructions on how to take your other diabetic medications during the bowel prep If you take blood thinners or aspirin, follow instructions given to you by your surgeon You may take your prescription pain medication, you may take Tylenol for pain. Do not use/smoke THC or drink alcohol in the 24 hours prior to your arrival time. Please Bring your [employer] Blind T[employer] Cutter's license/photo ID, insurance card, eye drops/sunglasses, inhalers if applicable If you have a Medical Power of Diesel Motor Mechanic, living will, or an advanced directive, please bring a copy with you. We are required to resuscitate and transfer you to the hospital along with your directive. If you need a work excuse, please reach out to your surgeon's office. You must have a fuel truck driver arranged. Uber, Lyft, taxi, public transit is not sufficient unless you have someone accompanying you. [facility] 10-21-2023 Telephone encounter Note Prescription Request: Last medication check: 09/17/2023 Last physical exam: 02/20/2023 Next scheduled appointment: none Last date of refill on this medication: 08/11/2023 [facility] 10-21-2023 Miscellaneous Notes Prescription Request: Last medication check: 09/17/2023 Last physical exam: 02/20/2023 Next scheduled appointment: none Last date of refill on this medication: 08/11/2023 documented in this encounter [facility] 10-03-2023 Telephone encounter Note Name of caller: Megan Contact phone number: [phone] Relationship to Patient: patient Provider: Dr. Bowden Practice: [facility] Chief Complaint/Reason for Call: Pt called in stating that she would like her rx for levalbuterol (Xopenex) 45 MCG/ACT inhaler sent tot he [facility]. Please follow up with the pt to advise. Best time of day caller can be reached: Any Patient advised that office/PCP has 24-48 business hours to return their call: Yes [facility] 10-03-2023 Miscellaneous Notes Name of caller: Megan Contact phone number: [phone] Relationship to Patient: patient Provider: Dr. Bowden Practice: [facility] Chief Complaint/Reason for Call: Pt called in stating that she would like her rx for levalbuterol (Xopenex) 45 MCG/ACT inhaler sent tot he [facility]. Please follow up with the pt to advise. Best time of day caller can be reached: Any Patient advised that office/PCP has 24-48 business hours to return their call: Yes documented in this encounter [facility] 09-22-2023 Note Formatting of this n ote might be different from the original. Discharged to home . Accompanied by daughter in law . AVS and education reviewed with patient and family, both verbalized understanding. Mode of transportation private vehicle Belongings sent. [facility] 09-22-2023 Miscellaneous Notes Discharged to home . Accompanied by daughter in law . AVS and education reviewed with patient and family, both verbalized understanding. Mode of transportation private vehicle Belongings sent. Operative Report NAME: Melissa Galvan : 1970 AGE: 52 y.o. SURGEON: Rosa Montiel M.D. OPERATIVE EYE: right PREOPERATIVE DIAGNOSIS: 1. Combined forms of age-related cataract: Nuclear sclerotic and posterior capsular cataract. POSTOPERATIVE DIAGNOSIS: 1. Combined forms of age-related cataract: Nuclear sclerotic and posterior subcapsular cataract. OPERATION: Cataract extraction by phacoemulsification with placement of posterior chamber intraocular lens implant. HEAD BANQUET WAITER/WAITRESS: See operating room record CLEAN UP HELPER BANQUET: See operating room record ANESTHESIA: Local with topical tetracaine drops and monitored anesthesia care. COMPLICATIONS: None. INDICATIONS: as delineated PROCEDURE: The patient was brought to the operating room, placed in supine position. Attention was given to the operative eye. Under monitored anesthesia care, multiple drops of topical tetracaine were administered. The eye was then prepped and draped in the usual sterile ophthalmic fashion. A wire lid speculum was placed in the operative microscope was used. A 1.0 mm slide port blade was then used to create paracentesis at the 2 o'clock position. Through this incision, 2% lidocaine preservative-free was instilled into the anterior chamber. Following this, Viscoelastic was then used to inflate the anterior chamber and coat the endothelial surface. A 2.4 mm microkeratome was then used to create a triplanar clear corneal incision at the 11 o'clock position. A pre-bent cystotome was then used to initiate an anterior capsulorrhexis. A Utrata forceps was then used to complete the capsulorrhexis and a curvilinear fashion. Balanced salt solution on a flat-tipped cannula was then used to perform hydrodissection and hydrodelineation of the lens. It was confirmed that the lens was freely mobile within the capsular bag. Phacoemulsification was then performed in a divide and conquer manner to remove the lens nucleus. Phacoemulsification time was CDE 4.51 . Automated irrigation and aspiration was then performed to remove all cortical remnants. Capsular bag was inflated using Provisc. The lens injector was then used to place an Akreos MI60L +21.0 diopter intraocular lens directly into the capsular bag. It was rotated in the proper position using the Zachary wand. The residual Viscoelastic was then removed using automated irrigation and aspiration. The wounds ere hydrated using balanced salt solution. They were checked for leaks and none were found. Topical antibiotic drops and antibiotic/steroid ointment were placed. The eye was patched and shielded. The patient was transferred to the postanesthesia care unit in good condition. Rosa Montiel MD 09/22/23 8:46 AM Inhaler in eye kit [facility] - Patient Pre-procedure Instructions [address] [place] [address] [address] May shower/brush teeth. Leave valuables/jewelry at home. No makeup, lotion, powder, deodorant or body sprays. No contact lenses No piercings or dark nail anguillan Sleep Apnea: If yes, please bring CPAP machine If you have been instructed to complete bowel prep (ex. Colonoscopy) FOLLOW YOUR PREP INSTRUCTIONS GIVEN BY YOUR SURGEON'S OFFICE. Otherwise, no solid food after midnight before procedure. Clear liquids only - up to 2 hours prior to your ARRIVAL time (water, clear juice, Gatorade, coffee/tea with no milk/sugar, no mints gum or candy) If of age, you may need to undergo a test Medications to take the morning of surgery Take the following medications: pat Do not take the following medications: PAT If you are taking Ozempic or Trulicity please stop this medication 7 days before your scheduled procedure. If you are a diabetic and on additional diabetic medication please contact your doctor for instructions on how to take your other diabetic medications during the bowel prep No Motrin, ibuprofen or Advil in 24 hours prior to surgery, longer if directed by your surgeon No Aleve or Naprosyn for 3 days prior to surgery or longer if instructed by your surgeon. If you take blood thinners or aspirin, follow instructions given to you by your surgeon You may take your prescription pain medication, you may take Tylenol for pain. Do not use/smoke THC or drink alcohol in the 24 hours prior to your arrival time. Please Bring your [employer] Blind T[employer] Cutter's license/photo ID, insurance card, eye drops/sunglasses, inhalers if applicable If you have a Medical Power of Diesel Motor Mechanic, living will, or an advanced directive, please bring a copy with you. We are required to resuscitate and transfer you to the hospital along with your directive. If you need a work excuse, please reach out to your surgeon's office. You must have a fuel truck driver arranged. Uber, Lyft, taxi, public transit is not sufficient unless you have someone accompanying you. documented in this encounter [facility] 09-22-2023 Hospital Discharge instructions Rosa Montiel MD - 09/22/2023 8:45 AM EDT Post-Operative Cataract Instructions You may take the patch and shield off and start taking eye drops FOUR hours after leaving the hospital. Your vision will be blurry. Starting drops will accelerate your healing process. After using the eye drops, replace the metal or plastic eye shield over the operative eye using a single piece of take Do NOT reapply the cotton patch. PREDNISOLONE ACETATE 1%: Apply 1 drop to the surgical eye EVERY HOUR while awake. MOXIFLOXACIN: Apply 1 drop to the surgical eye EVERY 2 HOURS while awake. KETOROLAC: Apply 1 drop to the surgical eye EVERY 2 HOURS while awake. Wait 5 minutes in between eye drops. The order does not matter. Continue taking the drops in this manner until your appointment tomorrow. What to Expect at Home Your Recovery: After surgery, your eye may be sore, it may feel scratchy, sticky, or uncomfortable. It may also water more than usual. Most people see better 1 to 3 days after surgery. But it could take 3 to 10 weeks to get the full benefits of surgery and to see as clearly as possible. Your doctor may send you home with a bandage, patch, or clear shield on your eye. This will keep you from rubbing your eye. Your doctor will also give you eyedrops to help your eye heal. Use them exactly as directed. You can read or watch TV right away, but things may look blurry. Most people are able to return to work or their normal routine in 1 to 3 days. After your eye heals, you may still need to wear glasses, especially for reading. This care sheet gives you a general idea about how long it will take for you to recover. But each person recovers at a different pace. Follow the steps below to get better as quickly as possible. How can you care for yourself at home? Activity Rest when you feel tired. Getting enough sleep will help you recover. You may have trouble judging distances for a few days. Move slowly, and be careful going up and down stairs and pouring hot liquids. Ask for help if you need it. Ask your doctor when it is okay to drive. Wear your eye bandage, patch, or shield for as long as your doctor recommends. You may only need to wear it when you sleep. You can shower or wash your hair the day after surgery. Keep water, soap, shampoo, hair spray, and shaving lotion out of your eye, especially for the first week. Do not rub or put pressure on your eye for at least 1 week. Do not wear eye makeup for 1 to 2 weeks. You may also want to avoid face cream or lotion. Do not get your hair colored or permed for 10 days after surgery. Do not bend over or do any strenuous activities, such as biking, jogging, weight lifting, or aerobic exercise, for 2 weeks or until your doctor says it is okay. Avoid swimming, hot tubs, gardening, and dusting for 1 to 2 weeks. Wear sunglasses on bright days for at least 1 year after surgery. Medicines You can resume all your regular medicines. She will also give you instructions about taking any new medicines. Follow your doctor's instructions for when to use your eyedrops. Always wash your hands before you put your drops in. To put in eyedrops: -Tilt your head back, and pull your lower eyelid down with one finger. -Drop the medicine inside the lower lid. -Close your eye for 30 to 60 seconds to let the drops absorb. -Do not touch the dropper tip to your eyelashes or any other surface. Follow your doctor's instructions for taking pain medicines. Follow-up care is a omalley part of your treatment and safety. Be sure to make and go to all appointments, and call your doctor if you are having problems. It's also a good idea to know your test results and keep a list of the medicines you take. When should you call for help? Call 911 anytime you think you may need emergency care. For example, call if: You passed out (lost consciousness). You have severe trouble breathing. You have sudden chest pain and shortness of breath, or you cough up blood. Call your doctor now or seek immediate medical care if: You have eye pain. You have pus draining from your eye. Your vision gets worse. Your eye is still red and bloodshot after 3 or 4 days. You notice new floaters, flashes of light, or changes in your field of vision. Watch closely for changes in your health, and be sure to contact your doctor if you have any problems. documented in this encounter [facility] 09-22-2023 Note Formatting of this n ote might be different from the original. Operative Report NAME: Melissa Galvan : 1970 AGE: 52 y.o. SURGEON: Rosa Montiel M.D. OPERATIVE EYE: right PREOPERATIVE DIAGNOSIS: 1. Combined forms of age-related cataract: Nuclear sclerotic and posterior capsular cataract. POSTOPERATIVE DIAGNOSIS: 1. Combined forms of age-related cataract: Nuclear sclerotic and posterior subcapsular cataract. OPERATION: Cataract extraction by phacoemulsification with placement of posterior chamber intraocular lens implant. HEAD BANQUET WAITER/WAITRESS: See operating room record CLEAN UP HELPER BANQUET: See operating room record ANESTHESIA: Local with topical tetracaine drops and monitored anesthesia care. COMPLICATIONS: None. INDICATIONS: as delineated PROCEDURE: The patient was brought to the operating room, placed in supine position. Attention was given to the operative eye. Under monitored anesthesia care, multiple drops of topical tetracaine were administered. The eye was then prepped and draped in the usual sterile ophthalmic fashion. A wire lid speculum was placed in the operative microscope was used. A 1.0 mm slide port blade was then used to create paracentesis at the 2 o'clock position. Through this incision, 2% lidocaine preservative-free was instilled into the anterior chamber. Following this, Viscoelastic was then used to inflate the anterior chamber and coat the endothelial surface. A 2.4 mm microkeratome was then used to create a triplanar clear corneal incision at the 11 o'clock position. A pre-bent cystotome was then used to initiate an anterior capsulorrhexis. A Utrata forceps was then used to complete the capsulorrhexis and a curvilinear fashion. Balanced salt solution on a flat-tipped cannula was then used to perform hydrodissection and hydrodelineation of the lens. It was confirmed that the lens was freely mobile within the capsular bag. Phacoemulsification was then performed in a divide and conquer manner to remove the lens nucleus. Phacoemulsification time was CDE 4.51 . Automated irrigation and aspiration was then performed to remove all cortical remnants. Capsular bag was inflated using Provisc. The lens injector was then used to place an Akreos MI60L +21.0 diopter intraocular lens directly into the capsular bag. It was rotated in the proper position using the Zachary wand. The residual Viscoelastic was then removed using automated irrigation and aspiration. The wounds ere hydrated using balanced salt solution. They were checked for leaks and none were found. Topical antibiotic drops and antibiotic/steroid ointment were placed. The eye was patched and shielded. The patient was transferred to the postanesthesia care unit in good condition. Rosa Montiel MD 09/22/23 8:46 AM [facility] 09-22-2023 Note Formatting of this n ote might be different from the original. Inhaler in eye kit [facility] 09-18-2023 History and physical note Interval History and Physical I have interviewed and examined the patient and reviewed the recent History and Physical. There have been no changes to the recent H&P documentation. The H&P resides on a progress note on this patient's chart. The patient understands the planned operation and its associated risks and benefits and agrees to proceed. The surgical consent form has been signed. [facility] 09-18-2023 History and physical note Interval History and Physical I have interviewed and examined the patient and reviewed the recent History and Physical. There have been no changes to the recent H&P documentation. The H&P resides on a progress note on this patient's chart. The patient understands the planned operation and its associated risks and benefits and agrees to proceed. The surgical consent form has been signed. documented in this encounter [facility] 09-17-2023 Evaluation + Plan note Associated Problem(s): Mixed hyperlipidemia Controlled, continue rosuvastatin 5 mg daily [facility] 09-17-2023 Miscellaneous Notes Associated Problem(s): Mixed hyperlipidemia Controlled, continue rosuvastatin 5 mg daily Associated Problem(s): Acquired hypothyroidism Stable, continue levothyroxine 75 mcg Associated Problem(s): Mixed stress and urge urinary incontinence Uncontrolled, she currently is not taking any of her medications and we discussed Kegel exercises and she acts like she is not interested in doing them. Associated Problem(s): Mitral valve prolapse Stable, currently has not had any tachycardia. Associated Problem(s): Chronic obstructive lung disease (HCC) Stable, she currently is smoke-free continue Xopenex 45 mcg 2 puffs every 6 hours as needed, Symbicort 2 puffs twice a day Associated Problem(s): Neuropathy Stable, continue gabapentin 600 mg 3 times a day. documented in this encounter [facility] 09-17-2023 Evaluation + Plan note Associated Problem(s): Acquired hypothyroidism Stable, continue levothyroxine 75 mcg [facility] 09-17-2023 Evaluation + Plan note Associated Problem(s): Mixed stress and urge urinary incontinence Uncontrolled, she currently is not taking any of her medications and we discussed Kegel exercises and she acts like she is not interested in doing them. [facility] 09-17-2023 Evaluation + Plan note Associated Problem(s): Mitral valve prolapse Roel, currently has not had any tachycardia. [facility] 09-17-2023 Evaluation + Plan note Associated Problem(s): Chronic obstructive lung disease (HCC) Stable, she currently is smoke-free continue Xopenex 45 mcg 2 puffs every 6 hours as needed, Symbicort 2 puffs twice a day [facility] 09-17-2023 Evaluation + Plan note Associated Problem(s): Neuropathy Stable, continue gabapentin 600 mg 3 times a day. [facility] 09-17-2023 History of Present illness Narrative Patient was verified by name and . Images from the original note were not included. 09/17/2023 Melissa Galvan (: 1970) is a 52 y.o. female , Established patient, here for evaluation of the following chief complaint(s): 6 Month Follow-up (Medicine Check), Health Maintenance (Colonoscopy-agrees to Cologuard, has never had a colonoscopy Derm Skin Check-never, states Dr. Bowden checked her skin the last time she was here Pap-does not have an OBGYN, declines Mammogram-has not had one, agrees to order /), Anxiety, COPD, and Neuropathy ASSESSMENT/PLAN: 1. Chronic obstructive pulmonary disease, unspecified COPD type (HCC) Assessment & Plan: Stable, she currently is smoke-free continue Xopenex 45 mcg 2 puffs every 6 hours as needed, Symbicort 2 puffs twice a day 2. Mitral valve prolapse Assessment & Plan: Stable, currently has not had any tachycardia. 3. Neuropathy Assessment & Plan: Stable, continue gabapentin 600 mg 3 times a day. 4. Mixed stress and urge urinary incontinence Assessment & Plan: Uncontrolled, she currently is not taking any of her medications and we discussed Kegel exercises and she acts like she is not interested in doing them. 5. Acquired hypothyroidism Assessment & Plan: Stable, continue levothyroxine 75 mcg 6. Mixed hyperlipidemia Assessment & Plan: Controlled, continue rosuvastatin 5 mg daily 7. Screening for colon cancer - Cologuard colon cancer screening 8. Encounter for screening mammogram for malignant neoplasm of breast - Bilateral screening mammogram with tomosynthesis Follow up in about 6 months (around 03/18/2024) for AWV. SUBJECTIVE/OBJECTIVE: HPI -Megan comes in today for a 6-month follow-up appointment on her COPD, she says she has been smoke-free for the last 32 days, she also has a history of mitral valve prolapse with seems to be stable, she has neuropathy for which she takes gabapentin and seems to be well-controlled. She has a history of mixed urinary incontinence so we discussed in Kegel exercises, she has hypothyroidism which is well-controlled, hyperlipidemia and she needs a Cologuard for screening for colon cancer and a mammogram. She says she is going to have cataract removed next week and she is extremely anxious and she had stopped her Paxil so we will have her go back on it. Review of Systems Constitutional: Negative for chills and fever. Respiratory: Negative for shortness of breath. Cardiovascular: Negative for chest pain and palpitations. Gastrointestinal: Negative for abdominal pain, blood in stool, constipation and diarrhea. Genitourinary: Negative for dysuria, frequency, hematuria and urgency. Neurological: Negative for weakness and numbness. Psychiatric/Behavioral: Negative for dysphoric mood. The patient is not nervous/anxious. Vitals: 09/17/23 1002 BP: 125/69 Pulse: 90 SpO2: 98% Weight: 107 lb 9.6 oz (48.8 kg) Height: 5' 7.25 (1.708 m) Physical Exam Vitals and nursing note reviewed. Constitutional: General: She is not in acute distress. Appearance: Normal appearance. HENT: Head: Normocephalic. Right Ear: Tympanic membrane, ear canal and external ear normal. Left Ear: Tympanic membrane, ear canal and external ear normal. Mouth/Throat: Mouth: Mucous membranes are moist. Pharynx: Oropharynx is clear. Eyes: Extraocular Movements: Extraocular movements intact. Pupils: Pupils are equal, round, and reactive to light. Neck: Thyroid: No thyromegaly. Vascular: No carotid bruit. Cardiovascular: Rate and Rhythm: Normal rate and regular rhythm. Heart sounds: Normal heart sounds. No murmur heard. Pulmonary: Effort: Pulmonary effort is normal. Breath sounds: Normal breath sounds. Abdominal: General: Bowel sounds are normal. Palpations: Abdomen is soft. Musculoskeletal: General: Normal range of motion. Cervical back: Normal range of motion. Lymphadenopathy: Cervical: No cervical adenopathy. Skin: General: Skin is warm and dry. Neurological: General: No focal deficit present. Mental Status: She is alert and oriented to person, place, and time. Psychiatric: Mood and Affect: Mood normal. An electronic signature was used to authenticate this note. Dalton Bowden MD 09/17/2023 1:59 PM documented in this encounter [facility] 09-16-2023 Note Formatting of this n ote might be different from the original. [facility] - Patient Pre-procedure Instructions [address] [place] [address] [address] May shower/brush teeth. Leave valuables/jewelry at home. No makeup, lotion, powder, deodorant or body sprays. No contact lenses No piercings or dark nail anguillan Sleep Apnea: If yes, please bring CPAP machine If you have been instructed to complete bowel prep (ex. Colonoscopy) FOLLOW YOUR PREP INSTRUCTIONS GIVEN BY YOUR SURGEON'S OFFICE. Otherwise, no solid food after midnight before procedure. Clear liquids only - up to 2 hours prior to your ARRIVAL time (water, clear juice, Gatorade, coffee/tea with no milk/sugar, no mints gum or candy) If of age, you may need to undergo a test Medications to take the morning of surgery Take the following medications: pat Do not take the following medications: PAT If you are taking Ozempic or Trulicity please stop this medication 7 days before your scheduled procedure. If you are a diabetic and on additional diabetic medication please contact your doctor for instructions on how to take your other diabetic medications during the bowel prep No Motrin, ibuprofen or Advil in 24 hours prior to surgery, longer if directed by your surgeon No Aleve or Naprosyn for 3 days prior to surgery or longer if instructed by your surgeon. If you take blood thinners or aspirin, follow instructions given to you by your surgeon You may take your prescription pain medication, you may take Tylenol for pain. Do not use/smoke THC or drink alcohol in the 24 hours prior to your arrival time. Please Bring your [employer] Blind T[employer] Cutter's license/photo ID, insurance card, eye drops/sunglasses, inhalers if applicable If you have a Medical Power of Diesel Motor Mechanic, living will, or an advanced directive, please bring a copy with you. We are required to resuscitate and transfer you to the hospital along with your directive. If you need a work excuse, please reach out to your surgeon's office. You must have a fuel truck driver arranged. Uber, Lyft, taxi, public transit is not sufficient unless you have someone accompanying you. [facility] 08-11-2023 Telephone encounter Note Prescription Request: Last medication check: 07/28/23 Last physical exam: 02/21/24 Next scheduled appointment: 09/12/23 Last date of refill on this medication 05/14/23 [facility] 08-11-2023 Miscellaneous Notes Prescription Request: Last medication check: 07/28/23 Last physical exam: 02/21/24 Next scheduled appointment: 09/12/23 Last date of refill on this medication 05/14/23 documented in this encounter [facility] 07-28-2023 Evaluation + Plan note Associated Problem(s): Neoplasm of uncertain behavior of skin of forearm The only thing that would be of any suspicion but this lesion is the variegation in color, we discussed the ABCDs of melanoma and she will continue to monitor this and if it gets bigger or changes in color we will take it off. [facility] 07-28-2023 Miscellaneous Notes Associated Problem(s): Neoplasm of uncertain behavior of skin of forearm The only thing that would be of any suspicion but this lesion is the variegation in color, we discussed the ABCDs of melanoma and she will continue to monitor this and if it gets bigger or changes in color we will take it off. documented in this encounter [facility] 07-28-2023 History of Present illness Narrative Patient verified by last name and date of . Images from the original note were not included. 07/28/2023 Melissa Galvan (: 1970) is a 52 y.o. female , Established patient, here for evaluation of the following chief complaint(s): Suspicious Skin Lesion (Right arm that has gotten bigger ) ASSESSMENT/PLAN: 1. Neoplasm of uncertain behavior of skin of forearm Assessment & Plan: The only thing that would be of any suspicion but this lesion is the variegation in color, we discussed the ABCDs of melanoma and she will continue to monitor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 disease, unspecified COPD type (HCC) Weight loss Loss of weight Anxiety Anxiety state, unspecified Tobacco use Screening for deficiency anemia Screening for other and unspecified deficiency anemia Screening for diabetes mellitus Screening for lipid disorders Moderate episode of recurrent major depressive disorder (HCC)- Primary Anxiety Anxiety state, unspecified Acquired hypothyroidism Unspecified hypothyroidism Mixed hyperlipidemia Mixed stress and urge urinary incontinence Mixed incontinence urge and stress (male)(female) Screening for colon cancer Special screening for malignant neoplasms, colon Neoplasm of uncertain behavior of skin of forearm- Primary Chronic obstructive pulmonary disease, unspecified COPD type (HCC)- Primary Mitral valve prolapse Mitral valve disorders Neuropathy Mononeuritis of unspecified site Mixed stress and urge urinary incontinence Mixed incontinence urge and stress (male)(female) Acquired hypothyroidism Unspecified hypothyroidism Mixed hyperlipidemia Screening for colon cancer Special screening for malignant neoplasms, colon Encounter for screening mammogram for malignant neoplasm of breast Neuropathy- Primary Mononeuritis of unspecified site Right hip pain Pain in joint, pelvic region and thigh Weight loss Loss of weight Primary insomnia Persistent disorder of initiating or maintaining sleep Screening exam for skin cancer Screening for malignant neoplasm of the skin Refused influenza vaccine Pleurisy- Primary Pleurisy without mention of effusion or current tuberculosis Viral syndrome Unspecified viral infection, in conditions classified elsewhere and of unspecified site Moderate episode of recurrent major depressive disorder (HCC)- Primary Anxiety disorder, unspecified type PTSD (post-traumatic stress disorder) Posttraumatic stress disorder Mixed hyperlipidemia Chronic obstructive pulmonary disease, unspecified COPD type (HCC) Atrial tachycardia (HCC) Other specified cardiac dysrhythmias Gastroesophageal reflux disease, unspecified whether esophagitis present [facility] Diagnosis Annual physical exam- Primary Routine general medical examination at a health care facility Neuropathy Mononeuritis of unspecified site Chronic obstructive pulmonary disease, unspecified COPD type (HCC) Weight loss Loss of weight Anxiety Anxiety state, unspecified Tobacco use Screening for deficiency anemia Screening for other and unspecified deficiency anemia Screening for diabetes mellitus Screening for lipid disorders Moderate episode of recurrent major depressive disorder (HCC)- Primary Anxiety Anxiety state, unspecified Acquired hypothyroidism Unspecified hypothyroidism Mixed hyperlipidemia Mixed stress and urge urinary incontinence Mixed incontinence urge and stress (male)(female) Screening for colon cancer Special screening for malignant neoplasms, colon Neoplasm of uncertain behavior of skin of forearm- Primary Chronic obstructive pulmonary disease, unspecified COPD type (HCC)- Primary Mitral valve prolapse Mitral valve disorders Neuropathy Mononeuritis of unspecified site Mixed stress and urge urinary incontinence Mixed incontinence urge and stress (male)(female) Acquired hypothyroidism Unspecified hypothyroidism Mixed hyperlipidemia Screening for colon cancer Special screening for malignant neoplasms, colon Encounter for screening mammogram for malignant neoplasm of breast Neuropathy- Primary Mononeuritis of unspecified site Right hip pain Pain in joint, pelvic region and thigh Weight loss Loss of weight Primary insomnia Persistent disorder of initiating or maintaining sleep Screening exam for skin cancer Screening for malignant neoplasm of the skin Refused influenza vaccine Routine general medical examination at health care facility- Primary Routine general medical examination at a health care facility Atrial tachycardia (HCC) Other specified cardiac dysrhythmias Chronic obstructive pulmonary disease, unspecified COPD type (HCC) Moderate persistent asthma without complication Moderate episode of recurrent major depressive disorder (HCC) Anxiety disorder, unspecified type PTSD (post-traumatic stress disorder) Posttraumatic stress disorder Chronic pain syndrome Neuropathy Mononeuritis of unspecified site Acquired hypothyroidism Unspecified hypothyroidism Mixed hyperlipidemia Screening for diabetes mellitus Screening for colon cancer Special screening for malignant neoplasms, colon Screening mammogram for breast cancer Symptoms consistent with irritable bowel syndrome [facility] Diagnosis Annual physical exam- Primary Routine general medical examination at a health care facility Neuropathy Mononeuritis of unspecified site Chronic obstructive pulmonary disease, unspecified COPD type (HCC) Weight loss Loss of weight Anxiety Anxiety state, unspecified Tobacco use Screening for deficiency anemia Screening for other and unspecified deficiency anemia Screening for diabetes mellitus Screening for lipid disorders Moderate episode of recurrent major depressive disorder (HCC)- Primary Anxiety Anxiety state, unspecified Acquired hypothyroidism Unspecified hypothyroidism Mixed hyperlipidemia Mixed stress and urge urinary incontinence Mixed incontinence urge and stress (male)(female) Screening for colon cancer Special screening for malignant neoplasms, colon Neoplasm of uncertain behavior of skin of forearm- Primary Chronic obstructive pulmonary disease, unspecified COPD type (HCC)- Primary Mitral valve prolapse Mitral valve disorders Neuropathy Mononeuritis of unspecified site Mixed stress and urge urinary incontinence Mixed incontinence urge and stress (male)(female) Acquired hypothyroidism Unspecified hypothyroidism Mixed hyperlipidemia Screening for colon cancer Special screening for malignant neoplasms, colon Encounter for screening mammogram for malignant neoplasm of breast Neuropathy- Primary Mononeuritis of unspecified site Right hip pain Pain in joint, pelvic region and thigh Weight loss Loss of weight Primary insomnia Persistent disorder of initiating or maintaining sleep Screening exam for skin cancer Screening for malignant neoplasm of the skin Refused influenza vaccine Routine general medical examination at health care facility- Primary Routine general medical examination at a health care facility Atrial tachycardia (HCC) Other specified cardiac dysrhythmias Chronic obstructive pulmonary disease, unspecified COPD type (HCC) Moderate persistent asthma without complication Moderate episode of recurrent major depressive disorder (HCC) Anxiety disorder, unspecified type PTSD (post-traumatic stress disorder) Posttraumatic stress disorder Chronic pain syndrome Neuropathy Mononeuritis of unspecified site Acquired hypothyroidism Unspecified hypothyroidism Mixed hyperlipidemia Screening for diabetes mellitus Screening for colon cancer Special screening for malignant neoplasms, colon Screening mammogram for breast cancer Symptoms consistent with irritable bowel syndrome Mixed hyperlipidemia [facility] Diagnosis Annual physical exam- Primary Routine general medical examination at a health care facility Neuropathy Mononeuritis of unspecified site Chronic obstructive pulmonary disease, unspecified COPD type (HCC) Weight loss Loss of weight Anxiety Anxiety state, unspecified Tobacco use Screening for deficiency anemia Screening for other and unspecified deficiency anemia Screening for diabetes mellitus Screening for lipid disorders Moderate episode of recurrent major depressive disorder (HCC)- Primary Anxiety Anxiety state, unspecified Acquired hypothyroidism Unspecified hypothyroidism Mixed hyperlipidemia Mixed stress and urge urinary incontinence Mixed incontinence urge and stress (male)(female) Screening for colon cancer Special screening for malignant neoplasms, colon Neoplasm of uncertain behavior of skin of forearm- Primary Chronic obstructive pulmonary disease, unspecified COPD type (HCC)- Primary Mitral valve prolapse Mitral valve disorders Neuropathy Mononeuritis of unspecified site Mixed stress and urge urinary incontinence Mixed incontinence urge and stress (male)(female) Acquired hypothyroidism Unspecified hypothyroidism Mixed hyperlipidemia Screening for colon cancer Special screening for malignant neoplasms, colon Encounter for screening mammogram for malignant neoplasm of breast Neuropathy- Primary Mononeuritis of unspecified site Right hip pain Pain in joint, pelvic region and thigh Weight loss Loss of weight Primary insomnia Persistent disorder of initiating or maintaining sleep Screening exam for skin cancer Screening for malignant neoplasm of the skin Refused influenza vaccine Routine general medical examination at health care facility- Primary Routine general medical examination at a health care facility Atrial tachycardia (HCC) Other specified cardiac dysrhythmias Chronic obstructive pulmonary disease, unspecified COPD type (HCC) Moderate persistent asthma without complication Moderate episode of recurrent major depressive disorder (HCC) Anxiety disorder, unspecified type PTSD (post-traumatic stress disorder) Posttraumatic stress disorder Chronic pain syndrome Neuropathy Mononeuritis of unspecified site Acquired hypothyroidism Unspecified hypothyroidism Mixed hyperlipidemia Screening for diabetes mellitus Screening for colon cancer Special screening for malignant neoplasms, colon Screening mammogram for breast cancer Symptoms consistent with irritable bowel syndrome Neuropathy Mononeuritis of unspecified site Gastroesophageal reflux disease, unspecified whether esophagitis present Chronic obstructive pulmonary disease, unspecified COPD type (HCC) Atrial tachycardia (HCC) Other specified cardiac dysrhythmias [facility] Diagnosis Annual physical exam- Primary Routine general medical examination at a health care facility Neuropathy Mononeuritis of unspecified site Chronic obstructive pulmonary disease, unspecified COPD type (HCC) Weight loss Loss of weight Anxiety Anxiety state, unspecified Tobacco use Screening for deficiency anemia Screening for other and unspecified deficiency anemia Screening for diabetes mellitus Screening for lipid disorders Moderate episode of recurrent major depressive disorder (HCC)- Primary Anxiety Anxiety state, unspecified Acquired hypothyroidism Unspecified hypothyroidism Mixed hyperlipidemia Mixed stress and urge urinary incontinence Mixed incontinence urge and stress (male)(female) Screening for colon cancer Special screening for malignant neoplasms, colon Neoplasm of uncertain behavior of skin of forearm- Primary Chronic obstructive pulmonary disease, unspecified COPD type (HCC)- Primary Mitral valve prolapse Mitral valve disorders Neuropathy Mononeuritis of unspecified site Mixed stress and urge urinary incontinence Mixed incontinence urge and stress (male)(female) Acquired hypothyroidism Unspecified hypothyroidism Mixed hyperlipidemia Screening for colon cancer Special screening for malignant neoplasms, colon Encounter for screening mammogram for malignant neoplasm of breast Neuropathy- Primary Mononeuritis of unspecified site Right hip pain Pain in joint, pelvic region and thigh Weight loss Loss of weight Primary insomnia Persistent disorder of initiating or maintaining sleep Screening exam for skin cancer Screening for malignant neoplasm of the skin Refused influenza vaccine Routine general medical examination at health care facility- Primary Routine general medical examination at a health care facility Atrial tachycardia (HCC) Other specified cardiac dysrhythmias Chronic obstructive pulmonary disease, unspecified COPD type (HCC) Moderate persistent asthma without complication Moderate episode of recurrent major depressive disorder (HCC) Anxiety disorder, unspecified type PTSD (post-traumatic stress disorder) Posttraumatic stress disorder Chronic pain syndrome Neuropathy Mononeuritis of unspecified site Acquired hypothyroidism Unspecified hypothyroidism Mixed hyperlipidemia Screening for diabetes mellitus Screening for colon cancer Special screening for malignant neoplasms, colon Screening mammogram for breast cancer Symptoms consistent with irritable bowel syndrome Posttraumatic stress disorder Acquired hypothyroidism Unspecified hypothyroidism [facility] noteNo assessment information availableParkview [facility] Work Phone: Evaluation note* Diagnosis Annual physical exam- Primary Routine general medical examination at a health care facility Neuropathy Mononeuritis of unspecified site Chronic obstructive pulmonary disease, unspecified COPD type (HCC) Weight loss Loss of weight Anxiety Anxiety state, unspecified Tobacco use Screening for deficiency anemia Screening for other and unspecified deficiency anemia Screening for diabetes mellitus Screening for lipid disorders Moderate episode of recurrent major depressive disorder (CMS/HCC)- Primary Anxiety Anxiety state, unspecified Acquired hypothyroidism Unspecified hypothyroidism Mixed hyperlipidemia Mixed stress and urge urinary incontinence Mixed incontinence urge and stress (male)(female) Screening for colon cancer Special screening for malignant neoplasms, colon Neoplasm of uncertain behavior of skin of forearm- Primary Chronic obstructive pulmonary disease, unspecified COPD type (HCC)- Primary Mitral valve prolapse Mitral valve disorders Neuropathy Mononeuritis of unspecified site Mixed stress and urge urinary incontinence Mixed incontinence urge and stress (male)(female) Acquired hypothyroidism Unspecified hypothyroidism Mixed hyperlipidemia Screening for colon cancer Special screening for malignant neoplasms, colon Encounter for screening mammogram for malignant neoplasm of breast Neuropathy- Primary Mononeuritis of unspecified site Right hip pain Pain in joint, pelvic region and thigh Weight loss Loss of weight Primary insomnia Persistent disorder of initiating or maintaining sleep Screening exam for skin cancer Screening for malignant neoplasm of the skin Refused influenza vaccine Routine general medical examination at health care facility- Primary Routine general medical examination at a health care facility Atrial tachycardia (HCC) Other specified cardiac dysrhythmias Chronic obstructive pulmonary disease, unspecified COPD type (HCC) Moderate persistent asthma without complication Moderate episode of recurrent major depressive disorder (CMS/HCC) Anxiety disorder, unspecified type PTSD (post-traumatic stress disorder) Posttraumatic stress disorder Chronic pain syndrome Neuropathy Mononeuritis of unspecified site Acquired hypothyroidism Unspecified hypothyroidism Mixed hyperlipidemia Screening for diabetes mellitus Screening for colon cancer Special screening for malignant neoplasms, colon Screening mammogram for breast cancer Symptoms consistent with irritable bowel syndrome Posttraumatic stress disorder [facility] Diagnosis Annual physical exam- Primary Routine general medical examination at a health care facility Neuropathy Mononeuritis of unspecified site Chronic obstructive pulmonary disease, unspecified COPD type (HCC) Weight loss Loss of weight Anxiety Anxiety state, unspecified Tobacco use Screening for deficiency anemia Screening for other and unspecified deficiency anemia Screening for diabetes mellitus Screening for lipid disorders Moderate episode of recurrent major depressive disorder (CMS/HCC)- Primary Anxiety Anxiety state, unspecified Acquired hypothyroidism Unspecified hypothyroidism Mixed hyperlipidemia Mixed stress and urge urinary incontinence Mixed incontinence urge and stress (male)(female) Screening for colon cancer Special screening for malignant neoplasms, colon Neoplasm of uncertain behavior of skin of forearm- Primary Chronic obstructive pulmonary disease, unspecified COPD type (HCC)- Primary Mitral valve prolapse Mitral valve disorders Neuropathy Mononeuritis of unspecified site Mixed stress and urge urinary incontinence Mixed incontinence urge and stress (male)(female) Acquired hypothyroidism Unspecified hypothyroidism Mixed hyperlipidemia Screening for colon cancer Special screening for malignant neoplasms, colon Encounter for screening mammogram for malignant neoplasm of breast Neuropathy- Primary Mononeuritis of unspecified site Right hip pain Pain in joint, pelvic region and thigh Weight loss Loss of weight Primary insomnia Persistent disorder of initiating or maintaining sleep Screening exam for skin cancer Screening for malignant neoplasm of the skin Refused influenza vaccine Routine general medical examination at health care facility- Primary Routine general medical examination at a health care facility Atrial tachycardia (HCC) Other specified cardiac dysrhythmias Chronic obstructive pulmonary disease, unspecified COPD type (HCC) Moderate persistent asthma without complication Moderate episode of recurrent major depressive disorder (CMS/HCC) Anxiety disorder, unspecified type PTSD (post-traumatic stress disorder) Posttraumatic stress disorder Chronic pain syndrome Neuropathy Mononeuritis of unspecified site Acquired hypothyroidism Unspecified hypothyroidism Mixed hyperlipidemia Screening for diabetes mellitus Screening for colon cancer Special screening for malignant neoplasms, colon Screening mammogram for breast cancer Symptoms consistent with irritable bowel syndrome Anxiety disorder- Primary Anxiety state, unspecified PTSD (post-traumatic stress disorder) Posttraumatic stress disorder [facility] Diagnosis Annual physical exam- Primary Routine general medical examination at a health care facility Neuropathy Mononeuritis of unspecified site Chronic obstructive pulmonary disease, unspecified COPD type (HCC) Weight loss Loss of weight Anxiety Anxiety state, unspecified Tobacco use Screening for deficiency anemia Screening for other and unspecified deficiency anemia Screening for diabetes mellitus Screening for lipid disorders Moderate episode of recurrent major depressive disorder (CMS/HCC)- Primary Anxiety Anxiety state, unspecified Acquired hypothyroidism Unspecified hypothyroidism Mixed hyperlipidemia Mixed stress and urge urinary incontinence Mixed incontinence urge and stress (male)(female) Screening for colon cancer Special screening for malignant neoplasms, colon Neoplasm of uncertain behavior of skin of forearm- Primary Chronic obstructive pulmonary disease, unspecified COPD type (HCC)- Primary Mitral valve prolapse Mitral valve disorders Neuropathy Mononeuritis of unspecified site Mixed stress and urge urinary incontinence Mixed incontinence urge and stress (male)(female) Acquired hypothyroidism Unspecified hypothyroidism Mixed hyperlipidemia Screening for colon cancer Special screening for malignant neoplasms, colon Encounter for screening mammogram for malignant neoplasm of breast Neuropathy- Primary Mononeuritis of unspecified site Right hip pain Pain in joint, pelvic region and thigh Weight loss Loss of weight Primary insomnia Persistent disorder of initiating or maintaining sleep Screening exam for skin cancer Screening for malignant neoplasm of the skin Refused influenza vaccine Routine general medical examination at health care facility- Primary Routine general medical examination at a health care facility Atrial tachycardia (HCC) Other specified cardiac dysrhythmias Chronic obstructive pulmonary disease, unspecified COPD type (HCC) Moderate persistent asthma without complication Moderate episode of recurrent major depressive disorder (CMS/HCC) Anxiety disorder, unspecified type PTSD (post-traumatic stress disorder) Posttraumatic stress disorder Chronic pain syndrome Neuropathy Mononeuritis of unspecified site Acquired hypothyroidism Unspecified hypothyroidism Mixed hyperlipidemia Screening for diabetes mellitus Screening for colon cancer Special screening for malignant neoplasms, colon Screening mammogram for breast cancer Symptoms consistent with irritable bowel syndrome Moderate episode of recurrent major depressive disorder (CMS/HCC)- Primary Anxiety disorder, unspecified type PTSD (post-traumatic stress disorder) Posttraumatic stress disorder [facility] Diagnosis Annual physical exam- Primary Routine general medical examination at a health care facility Neuropathy Mononeuritis of unspecified site Chronic obstructive pulmonary disease, unspecified COPD type (HCC) Weight loss Loss of weight Anxiety Anxiety state, unspecified Tobacco use Screening for deficiency anemia Screening for other and unspecified deficiency anemia Screening for diabetes mellitus Screening for lipid disorders Moderate episode of recurrent major depressive disorder (CMS/HCC)- Primary Anxiety Anxiety state, unspecified Acquired hypothyroidism Unspecified hypothyroidism Mixed hyperlipidemia Mixed stress and urge urinary incontinence Mixed incontinence urge and stress (male)(female) Screening for colon cancer Special screening for malignant neoplasms, colon Neoplasm of uncertain behavior of skin of forearm- Primary Chronic obstructive pulmonary disease, unspecified COPD type (HCC)- Primary Mitral valve prolapse Mitral valve disorders Neuropathy Mononeuritis of unspecified site Mixed stress and urge urinary incontinence Mixed incontinence urge and stress (male)(female) Acquired hypothyroidism Unspecified hypothyroidism Mixed hyperlipidemia Screening for colon cancer Special screening for malignant neoplasms, colon Encounter for screening mammogram for malignant neoplasm of breast Neuropathy- Primary Mononeuritis of unspecified site Right hip pain Pain in joint, pelvic region and thigh Weight loss Loss of weight Primary insomnia Persistent disorder of initiating or maintaining sleep Screening exam for skin cancer Screening for malignant neoplasm of the skin Refused influenza vaccine Routine general medical examination at health care facility- Primary Routine general medical examination at a health care facility Atrial tachycardia (HCC) Other specified cardiac dysrhythmias Chronic obstructive pulmonary disease, unspecified COPD type (HCC) Moderate persistent asthma without complication Moderate episode of recurrent major depressive disorder (CMS/HCC) Anxiety disorder, unspecified type PTSD (post-traumatic stress disorder) Posttraumatic stress disorder Chronic pain syndrome Neuropathy Mononeuritis of unspecified site Acquired hypothyroidism Unspecified hypothyroidism Mixed hyperlipidemia Screening for diabetes mellitus Screening for colon cancer Special screening for malignant neoplasms, colon Screening mammogram for breast cancer Symptoms consistent with irritable bowel syndrome Neuropathy Mononeuritis of unspecified site [facility] Diagnosis Annual physical exam- Primary Routine general medical examination at a health care facility Neuropathy Mononeuritis of unspecified site Chronic obstructive pulmonary disease, unspecified COPD type (HCC) Weight loss Loss of weight Anxiety Anxiety state, unspecified Tobacco use Screening for deficiency anemia Screening for other and unspecified deficiency anemia Screening for diabetes mellitus Screening for lipid disorders Moderate episode of recurrent major depressive disorder (CMS/HCC)- Primary Anxiety Anxiety state, unspecified Acquired hypothyroidism Unspecified hypothyroidism Mixed hyperlipidemia Mixed stress and urge urinary incontinence Mixed incontinence urge and stress (male)(female) Screening for colon cancer Special screening for malignant neoplasms, colon Neoplasm of uncertain behavior of skin of forearm- Primary Chronic obstructive pulmonary disease, unspecified COPD type (HCC)- Primary Mitral valve prolapse Mitral valve disorders Neuropathy Mononeuritis of unspecified site Mixed stress and urge urinary incontinence Mixed incontinence urge and stress (male)(female) Acquired hypothyroidism Unspecified hypothyroidism Mixed hyperlipidemia Screening for colon cancer Special screening for malignant neoplasms, colon Encounter for screening mammogram for malignant neoplasm of breast Neuropathy- Primary Mononeuritis of unspecified site Right hip pain Pain in joint, pelvic region and thigh Weight loss Loss of weight Primary insomnia Persistent disorder of initiating or maintaining sleep Screening exam for skin cancer Screening for malignant neoplasm of the skin Refused influenza vaccine Routine general medical examination at health care facility- Primary Routine general medical examination at a health care facility Atrial tachycardia (HCC) Other specified cardiac dysrhythmias Chronic obstructive pulmonary disease, unspecified COPD type (HCC) Moderate persistent asthma without complication Moderate episode of recurrent major depressive disorder (CMS/HCC) Anxiety disorder, unspecified type PTSD (post-traumatic stress disorder) Posttraumatic stress disorder Chronic pain syndrome Neuropathy Mononeuritis of unspecified site Acquired hypothyroidism Unspecified hypothyroidism Mixed hyperlipidemia Screening for diabetes mellitus Screening for colon cancer Special screening for malignant neoplasms, colon Screening mammogram for breast cancer Symptoms consistent with irritable bowel syndrome Posttraumatic stress disorder [facility] Diagnosis Annual physical exam- Primary Routine general medical examination at a health care facility Neuropathy Mononeuritis of unspecified site Chronic obstructive pulmonary disease, unspecified COPD type (HCC) Weight loss Loss of weight Anxiety Anxiety state, unspecified Tobacco use Screening for deficiency anemia Screening for other and unspecified deficiency anemia Screening for diabetes mellitus Screening for lipid disorders Moderate episode of recurrent major depressive disorder (CMS/HCC)- Primary Anxiety Anxiety state, unspecified Acquired hypothyroidism Unspecified hypothyroidism Mixed hyperlipidemia Mixed stress and urge urinary incontinence Mixed incontinence urge and stress (male)(female) Screening for colon cancer Special screening for malignant neoplasms, colon Neoplasm of uncertain behavior of skin of forearm- Primary Chronic obstructive pulmonary disease, unspecified COPD type (HCC)- Primary Mitral valve prolapse Mitral valve disorders Neuropathy Mononeuritis of unspecified site Mixed stress and urge urinary incontinence Mixed incontinence urge and stress (male)(female) Acquired hypothyroidism Unspecified hypothyroidism Mixed hyperlipidemia Screening for colon cancer Special screening for malignant neoplasms, colon Encounter for screening mammogram for malignant neoplasm of breast Neuropathy- Primary Mononeuritis of unspecified site Right hip pain Pain in joint, pelvic region and thigh Weight loss Loss of weight Primary insomnia Persistent disorder of initiating or maintaining sleep Screening exam for skin cancer Screening for malignant neoplasm of the skin Refused influenza vaccine Routine general medical examination at health care facility- Primary Routine general medical examination at a health care facility Atrial tachycardia (HCC) Other specified cardiac dysrhythmias Chronic obstructive pulmonary disease, unspecified COPD type (HCC) Moderate persistent asthma without complication Moderate episode of recurrent major depressive disorder (CMS/HCC) Anxiety disorder, unspecified type PTSD (post-traumatic stress disorder) Posttraumatic stress disorder Chronic pain syndrome Neuropathy Mononeuritis of unspecified site Acquired hypothyroidism Unspecified hypothyroidism Mixed hyperlipidemia Screening for diabetes mellitus Screening for colon cancer Special screening for malignant neoplasms, colon Screening mammogram for breast cancer Symptoms consistent with irritable bowel syndrome Moderate episode of recurrent major depressive disorder (CMS/HCC)- Primary Anxiety disorder, unspecified type PTSD (post-traumatic stress disorder) Posttraumatic stress disorder [facility] Attachments The following attachments cannot be sent through Care Everywhere. * Hip Bursitis Exercises ([place] Island[place]) [facility] (n[facility])* Consultation (Routine) - Pending Review Specialty Diagnoses / Procedures Referred By Tonja vazquez Referred To Contact Urology Diagnoses Mixed stress and urge urinary incontinence Procedures OK OFFICE/OUTPATIENT [facility] 60-74 MINUTES Dalton Bowden MD [address], [place] [address] [facility] [address] [facility] [address] [place] [address] Referral ID Status Reason Start Date Expiration Date Visits Requested Visits Authorized [id number] Pending Review Specialty Services Required 03/13/2023 03/12/2024 1 1 * Consultation (Routine) - Pending Review Specialty Diagnoses / Procedures Referred By Contac t Referred To Contact General Surgery Diagnoses Screening for colon cancer Procedures OK OFFICE/OUTPATIENT [facility] 60-74 MINUTES Dalton Bowden MD [address] [facility], [place] [address] Norbert Sullivan MD [address] [place] [address] [address] [place] [address] Referral ID Status Reason Start Date Expiration Date Visits Requested Visits Authorized [id number] Pending Review Specialty Services Required 03/13/2023 03/12/2024 1 1 [facility] for referral (narrative)* Outpatient Procedure (Routine) - New Request Specialty Diagnoses / Procedures Referred By Contac t Referred To Contact [facility] Diagnoses Chronic obstructive pulmonary disease, unspecified COPD type (HCC) Procedures LUNG DIFFUSION CAPACITY (DLCO) DIFFUSING CAPACITY Ning Barksdale APRN.CNP [address] [place] [address] [facility] [place] [id number] Referral ID Status Reason Start Date Expiration Date Visits Requested Visits Authorized [id number] New Request Auto-Generat ed Referral 11/25/2023 12/24/2024 1 1 * Outpatient Procedure (Routine) - New Request Specialty Diagnoses / Procedures Referred By Contac t Referred To Contact [facility] Diagnoses Chronic obstructive pulmonary disease, unspecified COPD type (HCC) Procedures LUNG VOLUMES Ning Barksdale APRN.CNP [address] [place] [address] [place] [address] Referral ID Status Reason Start Date Expiration Date Visits Requested Visits Authorized [id number] New Request Auto-Generat ed Referral 11/25/2023 12/24/2024 1 1 * Outpatient Procedure (Routine) - New Request Specialty Diagnoses / Procedures Referred By Contac t Referred To Contact [facility] Diagnoses Chronic obstructive pulmonary disease, unspecified COPD type (HCC) Procedures SPIROMETRY WITH DILATOR IF OBSTRUCTED BRNCDILAT RSPSE SPMTRY PRE&POST-BRNCDILAT ADMN Ning Barksdale APRN.BELT FIXER [address] [place] [address] [facility] [place] [address] [place] [address] Referral ID Status Reason Start Date Expiration Date Visits Requested Visits Authorized [id number] New Request Auto-Generat ed Referral 11/25/2023 12/24/2024 1 1 * MRI/CT (Routine) - Pending Review Specialty Diagnoses / Procedures Referred By Tonja vazquez Referred To Contact CT IMAGING Diagnoses Tobacco abuse Encounter for screening for lung cancer Procedures CT LUNG SCREEN WO IVCON COMPUTED TOMOGRAPHY THORAX LW DOSE LNG CA SCR C- Ning Barksdale APRN.BELT FIXER [address] [place] [address] Ct Imaging [facility] Referral ID Status Reason Start Date Expiration Date Visits Requested Visits Authorized [id number] Pending Review Auto-Generat ed Referral 11/24/2023 12/23/2024 1 1 [facility] for referral (narrative)No reason for referral information availableSan Juan Medical Services Work Phone: Summary Purpose Family History Relationship Condition Age at Onset Recorded Date/T asha grandmother Alcoholism Unknown Hypertension Unknown sister Alcoholism Unknown Disorder of liver Unknown father Arthritis Unknown Autoimmune disorder Unknown Thrombus Unknown Myocardial infarction Unknown Cardiac disease Unknown Diabetes mellitus Unknown mother Arthritis Unknown History of blood transfusion Unknown Disorder of intestine Unknown Malignant neoplasm of colon Unknown Advance Directives Latest Code Status on File Code Status Date Activated Date Inactivated Comments Full Code 09/22/2023 7:08 AM 09/22/2023 11:16 AM Date Activated Date Inactivated Comments 09/22/2023 7:08 AM 09/22/2023 11:16 AM Date Activated Date Inactivated Comments 10/27/2023 11:37 AM 10/27/2023 3:26 PM Date Activated Date Inactivated Comments 09/22/2023 7:08 AM 09/22/2023 11:16 AM Date Activated Date Inactivated Comments 10/27/2023 11:37 AM 10/27/2023 3:26 PM Date Activated Date Inactivated Comments 09/22/2023 7:08 AM 09/22/2023 11:16 AM Reason for Referral Specialty Diagnoses / Procedures Referred By Contac t Referred To Contact Orthopedics Diagnoses Pain of right hip Procedures CONSULT TO ORTHOPAEDICS OFFICE/OUTPATIENT [facility] 60 MINUTES Raheem Sarmiento MD [address] [facility] [address] [place] [address] Referral ID Status Reason Start Date Expiration Date Visits Requested Visits Authorized [id number] Authorized PCP Requested Referral 11/11/2023 11/04/2024 1 1 Chief Complaint and Reason for Visit Chief Complaint Admit Date PTSD/ Gas, belching January 12, 2025 1: 00pm Additional Source Comments INFORMATION SOURCE (unrecogn ized section and content) DATE CREATED AUTHOR 09/26/[address] [facility] [employer] DATE CREATED AUTHOR AUTHOR'S ORGANIZ ATION 09/30/[address] [facility] [employer] DATE CREATED AUTHOR AUTHOR'S ORGANIZ ATION 10/28/2019 [facility] DATE CREATED AUTHOR AUTHOR'S ORGANIZ ATION 11/25/[address] [facility] DATE CREATED AUTHOR AUTHOR'S ORGANIZ ATION 09/13/2024 [facility] DATE CREATED AUTHOR AUTHOR'S ORGANIZ ATION 02/01/2025 [facility] DATE CREATED AUTHOR AUTHOR'S ORGANIZ ATION 02/13/[address] [facility] [employer] [facility] Reason for Visit (unrecogniz ed section and content) Reason Comments New Patient Establish Care Wonders if have a th yroid issue due to weight issue Anxiety Asking for medicatio n Reason Comments Missed Appointment # 1 no show, no jl er Reason Comments Anxiety Follow-up Started Paxil Health Maintenance Flu vaccine- refuseP cv 20 vaccine- refuseHep b vaccine- refuseHiv/hep c screening- refuseColonoscopy- agreeCovid vaccine-refuseMmr vaccine- done as childPap/heidi-will sched Shingles vaccine-refuse Reason Comments Med Refill Reason Onset Date Comments Cancelled Appointment 05/20/2023 Reason Onset Date Comments Appointment 06/03/2023 Reason Comments Suspicious Skin Lesion Right arm that calderon s gotten bigger Reason Comments 6 Month Follow-up Medicine Check Health Maintenance Colonoscopy-agrees t o Colty, has never had a colonoscopy Derm Skin Check-never, states Dr. Bowden checked her skin the last time she was here Pap-does not have an OBGYN, declines Mammogram-has not had one, agrees to order Anxiety COPD Neuropathy Reason Onset Date Comments Medication Problem 10/03/2023 levalbuterol (Xopenex) 45 MCG/ACT inhaler Specialty Diagnoses / Procedures Referred By Tonja vazquez Referred To Contact Diagnoses Combined forms of age-related cataract of left eye Combined forms of age-related cataract of left eye Procedures OK XCAPSL CTRC RMVL INSJ IO LENS PROSTH W/O ECP PHACOEMULSIFICATION WITH INTRAOCULAR LENS INSERTION LEFT EYE Rosa Montiel MD [address] [place] [address] Referral ID Status Reason Start Date Expiration Date Visits Re quested Visits Authorized [id number] 09/30/2023 1 1 Reason Comments Establish Care Reason Comments Orders ORTHO Reason Comments Counseling Reason Comments Patient Question Reason Comments Depression Anxiety Would like a letter for an emotional support animal. Reason Onset Date Comments Hip Pain 02/20/2024 Reason Comments Hip Pain Right- can hardly sl eep due to pain Health Maintenance Colonoscopy- has ref erral Dermatology- agree to referralMammogram- has order will call to schedFlu vaccine- refuseCovid vaccine- not done Reason Onset Date Comments Appointment 04/15/2024 Reason Comments Hip Pain Follow-up Xray- discuss referr al to physical therapy and possible referral to orthopedic Health Maintenance Hep c and hiv screen ing- refuseCologuard- has kit and not done yetHepb, pcv 20 vaccines- refuseMammogram- will give the number to call and schedule Reason Comments Anxiety Asked patient what w e were seeing her for today, was unable to tell me what she was coming in for. Did state that yesterday her world was flipped upside down. Depression Reason Onset Date Comments Release of Information 05/11/2024 Reason Comments Follow-up States she doesn't r eally feel any different with the xanax, felt like it helped a little bit in the beginning and then hasn't really helped since. States she feels no difference. Anxiety Depression Reason Comments Follow-up States that the medi cation has been helping a little bit, doesn't take it often just when she needs it. (Xanax) Anxiety Depression Reason Onset Date Comments Referral 06/17/2024 Reason Comments Follow-up Medication seems to be doing well, started clonzepam but doesn't think dose is stronger. Didn't like the xanax, states this medication is helping her more than Xanax was Anxiety Depression Reason Onset Date Comments Anxiety 07/10/2024 Reason Comments Pain With Breathing Left side - in the b ack stabbing hot pain Fatigue No energy today Reason Comments Follow-up States she feels lik e she can't breathe was seen a couple days ago and dx with pleurisy. Having trouble getting air in which is causing her to have an anxiety attack Depression Anxiety Reason Comments Follow-up Depression Anxiety Reason Comments New Rt hip pain lateral sidePt states that she does exercise and if she bke rides 3 miles she is down for 3 daysStarted couple years agoPt states that she is not looking for pain meds but to find out what is wrong Pain Rt hip pain lateral sidePt states that she does exercise and if she bke rides 3 miles she is down for 3 daysStarted couple years agoPt states that she is not looking for pain meds but to find out what is wrong Reason Comments Med Refill Health Maintenance Dermatology referral - refuseColonoscopy- has referral Mammogram- has orderCovid vaccine- not doneHep b vaccine- refusePcv 20 vaccine - refuseHiv/hep c screening- refuse Reason Comments Medicare Annual Wellness Visit Subsequen t Right hip pain Health Maintenance Skin- planning to sc hedule CRCS- agreesMamm- planning to schedule COVID- refusedHep B- refusedPNA- refusedHIV Screen- refusedHep C Screen- refused Reason Onset Date Comments Other 10/29/2024 Reason Onset Date Comments Earache 11/19/2024 Sore Throat 11/19/2024 Reason Onset Date Comments Med Refill 12/15/2024 Reason Onset Date Comments Med Refill 01/13/2025 Reason Onset Date Comments Other 01/13/2025 Colonoscopy prep questions Reason Onset Date Comments Other 01/17/2025 Reason Onset Date Comments Other 01/17/2025 Reason Comments Follow-up Depression Anxiety Reason Onset Date Comments Med Refill 02/11/2025 Care Teams (unrecognized sec tion and content) Curtain Cutter Relationship Specialty Start Date End [place] [address] PCP - General Family Medicine 02/20/23 Curtain Cutter Relationship Specialty Start Date End [place] [address] PCP - General Family Medicine 02/20/23 Curtain Cutter Relationship Specialty Start Date End Date Pcp, WARD Zimmerman PCP - General 12/19/22 07/06/23 Curtain Cutter Relationship Specialty Start Date End [place] [address] PCP - General Family Medicine 02/20/23 Curtain Cutter Relationship Specialty Start Date End [place] [address] PCP - General Family Medicine 02/20/23 Curtain Cutter Relationship Specialty Start Date End Date Dalton Bowden MD [address] [place] [address] PCP - General Family Medicine 02/20/23 Curtain Cutter Relationship Specialty Start Date End Date Dalton Bowden MD [address] [place] [id number] PCP - General Family Medicine 02/20/23 Surendra Miller MD [address] [place] [address] [address] [place] [address] Surgeon Urology 05/08/23 Curtain Cutter Relationship Specialty Start Date End Date Dalton Bowden MD [address] [place] [id number] PCP - General Family Medicine 02/20/23 Surendra Miller MD [address] [place] [address]. [address] [place] [address] Surgeon Urology 05/08/23 Curtain Cutter Relationship Specialty Start Date End Date Dalton Bowden MD [address] [place] [id number] PCP - General Family Medicine 02/20/23 Surendra Miller MD [address] [place] [address] [address] [place] [address] Surgeon Urology 05/08/23 Curtain Cutter Relationship Specialty Start Date End Date Dalton Bowden MD [address] [place] [address] PCP - General Family Medicine 02/20/23 Surendra Miller MD [address] [place] [address] [address] [place] [address] Surgeon Urology 05/08/23 Curtain Cutter Relationship Specialty Start Date End Date Dalton Bowden MD [address] [place] [id number] PCP - General Family Medicine 02/20/23 Surendra Miller MD [address] [place] [address] [address] [place] [address] Surgeon Urology 05/08/23 Curtain Cutter Relationship Specialty Start Date End Date Dalton Bowden MD [address] [place] [id number] PCP - General Family Medicine 02/20/23 Surendra Miller MD [address] [place] [address] [place] [address] Surgeon Urology 05/08/23 Curtain Cutter Relationship Specialty Start Date End Date Dalton Bowden MD [address] [place] [id number] PCP - General Family Medicine 02/20/23 Surendra Miller MD [address] [place] [address] [address] [place] [address] Surgeon Urology 05/08/23 Curtain Cutter Relationship Specialty Start Date End Date Dalton Bowden MD [address] [place] [id number] PCP - General Family Medicine 02/20/23 Surendra Miller MD [address] [facility] [address] [place] [address] Surgeon Urology 05/08/23 Curtain Cutter Relationship Specialty Start Date End Date Dalton Bowden MD [address] [place] [address] [place] [address] PCP - General Family Medicine 02/20/23 Surendra Miller MD [address] [facility] [address] [place] [address] Surgeon Urology 05/08/23 Curtain Cutter Relationship Specialty Start Date End Date Dalton Bowden MD [address] [place] [address] [place] [address] PCP - General Family Medicine 02/20/23 Surendra Miller MD [address] [facility] [address] [place] [address] Surgeon Urology 05/08/23 Curtain Cutter Relationship Specialty Start Date End Date Raheem Sarmiento MD [address] [facility] [address] [place] [address] PCP - General Internal Medicine 11/05/23 Curtain Cutter Relationship Specialty Start Date End Date Raheem Sarmiento MD [address] [facility] [address] [place] [address] PCP - General Internal Medicine 11/05/23 Curtain Cutter Relationship Specialty Start Date End Date Raheem Sarmiento MD [address] [facility] [address] [place] [address] PCP - General Internal Medicine 11/05/23 Curtain Cutter Relationship Specialty Start Date End Date Raheem Sarmiento MD [address] [facility] [address] [place] [address] PCP - General Internal Medicine 11/05/23 Curtain Cutter Relationship Specialty Start Date End Date Raheem Sarmiento MD [address] [facility] [address] [place] [address] PCP - General Internal Medicine 11/05/23 Curtain Cutter Relationship Specialty Start Date End [place] [address] PCP - General Family Medicine 02/20/23 Surendra Miller MD [address] [place] [address] Surgeon Urology 05/08/23 Curtain Cutter Relationship Specialty Start Date End Date Dalton Bowden MD [address] [place] [id number] PCP - General Family Medicine 02/20/23 Surendra Miller MD [address] [place] [address] Surgeon Urology 05/08/23 Curtain Cutter Relationship Specialty Start Date End Date Dalton Bowden MD [address] [place] [id number] PCP - General Family Medicine 02/20/23 Surendra Miller MD [address] [place] [address] Surgeon Urology 05/08/23 Curtain Cutter Relationship Specialty Start Date End Date Dalton Bowden MD [address] [place] [id number] PCP - General Family Medicine 02/20/23 Surendra Miller MD [address] [place] [address] Surgeon Urology 05/08/23 Curtain Cutter Relationship Specialty Start Date End Date Dalton Bowden MD [address] [place] [id number] PCP - General Family Medicine 02/20/23 Surendra Miller MD [address] [place] [address] Surgeon Urology 05/08/23 Curtain Cutter Relationship Specialty Start Date End Date Dalton Bowden MD [address] [place] [id number] PCP - General Family Medicine 02/20/23 Surendra Miller MD [address] [place] [address] Surgeon Urology 05/08/23 Curtain Cutter Relationship Specialty Start Date End Date Dalton Bowden MD [address] [place] [id number] PCP - General Family Medicine 02/20/23 Surendra Miller MD [address] [place] [address] Surgeon Urology 05/08/23 Curtain Cutter Relationship Specialty Start Date End Date Dalton Bowden MD [address] [place] [id number] PCP - General Family Medicine 02/20/23 Surendra Miller MD [address] [place] [address] Surgeon Urology 05/08/23 Curtain Cutter Relationship Specialty Start Date End Date Dalton Bowden MD [address] [place] [id number] PCP - General Family Medicine 02/20/23 Surendra Miller MD [address] [place] [address] Surgeon Urology 05/08/23 Curtain Cutter Relationship Specialty Start Date End Date Dalton Bowden MD [address] [place] [address] [id number] PCP - General Family Medicine 02/20/23 Surendra Miller MD [address] [place] [address] 33058 Surgeon Urology 05/08/23 Curtain Cutter Relationship Specialty Start Date End Date Dalton Bowden MD [address] [place] [address] [id number] PCP - General Family Medicine 02/20/23 Surendra Miller MD [address] [place] [address] 95314 Surgeon Urology 05/08/23 Curtain Cutter Relationship Specialty Start Date End Date Dalton Bowden MD [address] [place] [address] [id number] PCP - General Family Medicine 02/20/23 Surendra Miller MD [address] [place] [address] 20425 Surgeon Urology 05/08/23 Curtain Cutter Relationship Specialty Start Date End Date Dalton Bowden MD [address] [place] [address] [id number] PCP - General Family Medicine 02/20/23 Surendra Miller MD [address] [place] [address] 57415 Surgeon Urology 05/08/23 Curtain Cutter Relationship Specialty Start Date End Date Dalton Bowden MD [address] [place] [address] [id number] PCP - General Family Medicine 02/20/23 Surendra Miller MD [address] [place] [address] 22001 Surgeon Urology 05/08/23 Curtain Cutter Relationship Specialty Start Date End Date Dalton Bowden MD [address] [place] [address] [phone] PCP - General Family Medicine 02/20/23 Surendra Miller MD [address] [address] Surgeon Urology 05/08/23 Curtain Cutter Relationship Specialty Start Date End Date Dalton Bowden MD [address] [place] [address] [id number] PCP - General Family Medicine 02/20/23 Surendra Miller MD 95 [facility] [address] [place] [address] 91978 Surgeon Urology 05/08/23 Curtain Cutter Relationship Specialty Start Date End Date Dalton Bowden MD [address] [place] [address] 60800 PCP - General Family Medicine 02/20/23 Surendra Miller MD [address] [place] [address] 73451 Surgeon Urology 05/08/23 Curtain Cutter Relationship Specialty Start Date End Date Dalton Bowden MD [address] [place] [address] [id number] PCP - General Family Medicine 02/20/23 Surendra Miller MD [address] [address] Surgeon Urology 05/08/23 Curtain Cutter Relationship Specialty Start Date End Date Dalton Bowden MD [address] [place] [address] 05106 PCP - General Family Medicine 02/20/23 Surendra Miller MD 95 [facility] [address] [place] [address] 95084 Surgeon Urology 05/08/23 Curtain Cutter Relationship Specialty Start Date End Date Dalton Bowden MD [address] [place] [address] 69208 PCP - General Family Medicine 02/20/23 Surendra Miller MD [address] [place] [address] 00245 Surgeon Urology 05/08/23 Curtain Cutter Relationship Specialty Start Date End Date Dalton Bowden MD [address] [place] [address] 96684 PCP - General Family Medicine 02/20/23 Surendra Miller MD [address] [place] [address] 55329 Surgeon Urology 05/08/23 Curtain Cutter Relationship Specialty Start Date End Date Dalton Bowden MD [address] [place] [address] 73233 PCP - General Family Medicine 02/20/23 Surendra Miller MD [address] [place] [address] 32772 Surgeon Urology 05/08/23 Curtain Cutter Relationship Specialty Start Date End Date Raheem Sarmiento MD [address] [place] [address] [id number] PCP - General Internal Medicine 11/05/23 Curtain Cutter Relationship Specialty Start Date End Date Dalton Bowden MD [address] [place] [address] 27348 PCP - General Family Medicine 02/20/23 Surendra Miller MD [address] [address] Surgeon Urology 05/08/23 Curtain Cutter Relationship Specialty Start Date End Date Raheem Sarmiento MD [facility] [address] PCP - General Internal Medicine 11/05/23 Curtain Cutter Relationship Specialty Start Date End Date Dalton Bowden MD [address] [place] [address] PCP - General Family Medicine 02/20/23 Surendra Miller MD [address] [place] [address] 60978 Surgeon Urology 05/08/23 Tracy Richard APRN - BELT FIXER [address] [place] [address] Nurse Practitioner Nurse Practitioner [facility] 09/27/24 Curtain Cutter Relationship Specialty Start Date End Date Dalton Bowden MD [address] [place] [address] PCP - General Family Medicine 02/20/23 Surendra Miller MD [address] [address] Surgeon Urology 05/08/23 Tracy Richard APRN - BELT FIXER [address] [place] [address] Nurse Practitioner Nurse Practitioner Family 09/27/24 Curtain Cutter Relationship Specialty Start Date End Date Dalton Bowedn MD [address] [place] [address] PCP - General Family Medicine 02/20/23 Surendra Miller MD 95 [facility] [address] [place] [address] Surgeon Urology 05/08/23 Trcay Richard, ROCK DUST SPRAYER - BELT FIXER [address] [place] [address] Nurse Practitioner Nurse Practitioner Family 09/27/24 Curtain Cutter Relationship Specialty Start Date End Date Dalton Bowden MD [address] [place] [address] PCP - General Family Medicine 02/20/23 Surendra Miller MD [address] [address] Surgeon Urology 05/08/23 Tracy Richard, ROCK DUST SPRAYER - BELT FIXER [address] [place] [address] Nurse Practitioner Nurse Practitioner Family 09/27/24 Curtain Cutter Relationship Specialty Start Date End Date Dalton Bowden MD [address] [place] [address] PCP - General Family Medicine 02/20/23 Surendra Miller MD 95 [facility] [address] [place] [address]503 Surgeon Urology 05/08/23 Tracy Richard, ROCK DUST SPRAYER - BELT FIXER [address] [facility] [address] Nurse Practitioner Nurse Practitioner Family 09/27/24 Curtain Cutter Relationship Specialty Start Date End Date Dalton Bowden MD [address] [place], [place] [id number] PCP - General Family Medicine 02/20/23 Surendra Miller MD 95 [facility] [address] [place] [address] Surgeon Urology 05/08/23 Tracy Richard ROCK DUST SPRAYER - BELT FIXER [address] [facility] [place] [address] Nurse Practitioner Nurse Practitioner Family 09/27/24 Curtain Cutter Relationship Specialty Start Date End Date Dalton Bowden MD 25 [facility] [place] [address] PCP - General Family Medicine 02/20/23 Surendra Miller MD 95 [facility] [address] [place] [address] Surgeon Urology 05/08/23 Tracy Richard, ROCK DUST SPRAYER - BELT FIXER [address] [facility] [place] [address] Nurse Practitioner Nurse Practitioner Family 09/27/24 Curtain Cutter Relationship Specialty Start Date End Date Dalton Bowden MD 25 [facility] [address] PCP - General Family Medicine 02/20/23 Surendra Miller MD 95 [facility] [address] [place] [address] Surgeon Urology 05/08/23 Tracy Richard APRN - BELT FIXER 25 [address] [facility] [address] [place], [place] [id number] Nurse Practitioner Nurse Practitioner Family 09/27/24 Team Status: Inactive Member Role/Relationship Status Dates TYE Kimbrough Attending physician Active Start: January 12, 2025 End: January 12, 2025 Curtain Cutter Relationship Specialty Start Date End Date Dalton Bowden MD 25 [facility] [place] [address] PCP - General Family Medicine 02/20/23 Surendra Miller MD 95 [facility] [address] [place] [address] Surgeon Urology 05/08/23 Tracy Richard APRN - BELT FIXER 25 [address] [facility] [place] [address] [place] [address] Nurse Practitioner Nurse Practitioner Family 09/27/24 Curtain Cutter Relationship Specialty Start Date End Date Dalton Bowden MD 25 [place] [address] PCP - General Family Medicine 02/20/23 Surendra Miller MD 95 [facility] [address] [place] [address] Surgeon Urology 05/08/23 Tracy Richard, ROCK DUST SPRAYER - BELT FIXER 25 [address] [facility] [place] [address] [place] [address] Nurse Practitioner Nurse Practitioner Family 09/27/24 Curtain Cutter Relationship Specialty Start Date End Date Dalton Bowden MD [address] [place] [address] 10075 PCP - General Family Medicine 02/20/23 Surendra Miller MD [address] [place] [address] 37892 Surgeon Urology 05/08/23 Tracy Richard APRN - BELT FIXER [address] [place] [address] Nurse Practitioner Nurse Practitioner Family 09/27/24 Curtain Cutter Relationship Specialty Start Date End Date Dalton Bowden MD [address] [place] [address] 47391 PCP - General Family Medicine 02/20/23 Surendra Miller MD [address] [place] [address] 99705 Surgeon Urology 05/08/23 Tracy Richard APRN - BELT FIXER [address] [place] [address] Nurse Practitioner Nurse Practitioner Family 09/27/24 Curtain Cutter Relationship Specialty Start Date End Date Dalton Bowden MD [address] [place] [address] 06506 PCP - General Family Medicine 02/20/23 Surendra Miller MD [address] [address] Surgeon Urology 05/08/23 Jose Manuel Tracy S, ROCK DUST SPRAYER - BELT FIXER [address] [place] [address] [place] [address] Nurse Practitioner Nurse Practitioner Family 09/27/24 Source Comments (unrecognize d section and content) In the event this informatio n is protected by the Federal Confidentiality of Alcohol and Drug Abuse Patient Records regulations: The Federal rules restrict any use of the information to criminally investigate or prosecute any alcohol or drug abuse patient.[facility] the event this information is protected by the Federal Confidentiality of Alcohol and Drug Abuse Patient Records regulations: The Federal rules restrict any use of the information to criminally investigate or prosecute any alcohol or drug abuse patient.[facility] the event this information is protected by the Federal Confidentiality of Alcohol and Drug Abuse Patient Records regulations: The Federal rules restrict any use of the information to criminally investigate or prosecute any alcohol or drug abuse patient.[facility] the event this information is protected by the Federal Confidentiality of Alcohol and Drug Abuse Patient Records regulations: The Federal rules restrict any use of the information to criminally investigate or prosecute any alcohol or drug abuse patient.[facility] the event this information is protected by the Federal Confidentiality of Alcohol and Drug Abuse Patient Records regulations: The Federal rules restrict any use of the information to criminally investigate or prosecute any alcohol or drug abuse patient.[facility] the event this information is protected by the Federal Confidentiality of Alcohol and Drug Abuse Patient Records regulations: The Federal rules restrict any use of the information to criminally investigate or prosecute any alcohol or drug abuse patient.[facility] the event this information is protected by the Federal Confidentiality of Alcohol and Drug Abuse Patient Records regulations: The Federal rules restrict any use of the information to criminally investigate or prosecute any alcohol or drug abuse patient.[facility] the event this information is protected by the Federal Confidentiality of Alcohol and Drug Abuse Patient Records regulations: The Federal rules restrict any use of the information to criminally investigate or prosecute any alcohol or drug abuse patient.[facility] Goals (unrecognized section and content) Goals may be documented in a n alternate section FOR RECORDS PERTAINING TO PATIENTS WHO ARE OR HAVE BEEN ENROLLED IN A CHEMICAL DEPENDENCY/SUBSTANCEABUSE PROGRAM, SOME INFORMATION MAY BE OMITTED. This clinical summary was aggregated from multiple sources. Caution should be exercised in using it in the provision of clinical care. This summary normalizes information from multiple sources, and as a consequence, information in this document may materially change the coding, format and clinical context of patient data. In addition, data may be omitted in some cases. CLINICAL DECISIONS SHOULD BE BASED ON THE PRIMARY CLINICAL RECORDS. [facility] [employer] [facility]. provides no warranty or guarantee of the accuracy or completeness of information in this document.
--- NOTE | 2025-02-23 06:38 | PCM.HP.STD ---
HPI - General General Date of Admission: 02/23/25 Date of Service: 02/23/25 Chief Complaint: Abdominal pain HPI Narrative MELISSA GALVAN, is a 54 F who presents [Chief Complaint: Abdominal pain Patient referred from primary care provider for screening colonoscopy and GI symptoms over the past 6 months. Feeling to this appointment today has caused her a lot of anxiety she does not like to talk about her GI symptoms. Patient has foul-smelling bowel movements and right sided abdominal pain for the past 6 months. She may go a week without a bowel movement and then have a significant amount of loose stool. She feels like something may be wrong. Patient also endorsing long history of heartburn and takes Protonix intermittently on an as needed basis. She has heartburn 2-3 times per week depending on what she eats. Spicy foods and meats can cause worsening heartburn. She has never had a colonoscopy but did have an EGD at 1 point. Her mother of colon cancer in her late 60s. ] [facility] Medical History Wears glasses Depression Anxiety Former smoker History of irregular heartbeat History of echocardiogram Cardiology follow-up encounter Collapsed lung Thyroid disease Pneumonia Chronic bronchitis Cataracts, bilateral Atrial fibrillation Seasonal allergies IBS (irritable bowel syndrome) Mixed hyperlipidemia Acquired hypothyroidism Neuropathy Chronic pain syndrome Moderate persistent asthma without complication COPD (chronic obstructive pulmonary disease) Atrial tachycardia PTSD (post-traumatic stress disorder) Anxiety disorder Moderate episode of recurrent major depressive disorder Home Medications ?Medication ?Instructions ?Recorded ?Last Taken ?Type budesonide-formoterol HFA 160 2 puff inhalation Q12H 01/06/25 Unknown History mcg-4.5 mcg/actuation aerosol inhaler (Symbicort) clonazepam 0.5 mg tablet (Klonopin) 0.5 mg PO BID 01/06/25 Unknown History gabapentin 600 mg tablet 600 mg PO TID 01/06/25 Unknown History levalbuterol tartrate 45 2 puff inhalation Q4-6H PRN 01/06/25 Unknown History mcg/actuation aerosol inhaler shortness of breath levothyroxine 75 mcg capsule 75 mcg PO QDAY 01/06/25 Unknown History metoprolol succinate 50 mg 50 mg PO QDAY 01/06/25 Unknown History tablet,extended release 24 hr montelukast 10 mg tablet 10 mg PO QDAY 10/02/25 Unknown History nabumetone 500 mg tablet 500 mg PO BID 01/06/25 Unknown History pantoprazole 40 mg tablet,delayed 40 mg PO QDAY 01/06/25 Unknown History release paroxetine HCl 30 mg tablet 30 mg PO QDAY 01/06/25 Unknown History rosuvastatin 5 mg tablet 5 mg PO QDAY 01/06/25 Unknown History sodium sul 1.479 gram-potas ch See Rx Instructions PO PER PKG DIR 01/12/25 Unknown Rx 0.188 gram-magnes sul 0.225 gram #24 tabs tablet (Sutab) Allergy/AdvReac Type Severity Reaction Status Date / Time amitriptyline AdvReac Mild Nausea Verified 02/17/25 15:28 bupropion AdvReac Mild Other Verified 02/17/25 15:28 hydroxyzine (From Vistaril) AdvReac Mild Other Verified 02/17/25 15:28 meloxicam (From Mobic) AdvReac Mild Other Verified 02/17/25 15:28 oxycodone AdvReac Mild Vomiting Verified 02/17/25 15:28 sertraline (From Zoloft) AdvReac Mild Other Verified 02/17/25 15:28 Family History Grandmother Alcoholism Hypertension Sister Alcoholism Liver disease Father Arthritis Autoimmune disorder Thrombus Myocardial infarction Heart disease Diabetes Mother Arthritis Autoimmune disorder Transfusion history Bowel disease Colon cancer Diabetes Liver disease Surgical History History of cardiac catheterization Hx of chest tube placement History of cataract surgery H/O tubal ligation Hx of appendectomy Hx of removal of ovary H/O: hysterectomy Hx of tonsillectomy H/O right heart catheterization Social History Smoking Status: Former smoker quit date: 08/13/23 pack-years: 35 alcohol intake: never substance use type: marijuana what type of physical activity do you participate in: walking and bicycling ROS Constitutional Constitutional: Denies fatigue, fever(s), poor appetite, weight gain or weight loss Gastrointestinal Gastrointestinal: Denies belching, bloating, change in bowel habits, change in stool character, chewing difficulty, coffee ground emesis, constipation, cramping, diarrhea, dyspepsia, dysphagia, early satiety, excessive flatus, fecal incontinence, heartburn, hematemesis, hematochezia, hemorrhoids, loose stools, melena, nausea, odynophagia, rectal bleeding, tenesmus, vomiting or weight changes Physical Exam Const alert, oriented x3, no apparent distress and healthy appearing General Appearance: cooperative GI normal to inspection, nondistended, normoactive bowel sounds, soft to palpation, non-tender and non-distended Percussion: normal to percussion Rectal Exam: deferred Assessment & Plan Assessment/Plan (1) Family hx of colon cancer: (2) Heartburn: (3) Abdominal pain: PLAN: ROS Const Constitutional: Positive for fatigue and weakness ENT ENT: No difficulty swallowing Cardio Cardiology: Positive for leg pain with exertion Gastro GI: Positive for abdominal pain, bloating, constipation, diarrhea, heartburn, nausea/dyspepsia and vomiting; No belching, change in bowel habits, change in stool character, coffee ground emesis, cramping, difficulty swallowing, feeling full early, excessive flatus, incontinent of stools, Vomiting blood/hematemesis, Blood in stool, loose stools, Black,tarry stools, pain with swallowing or other Musc Musculoskeletal: Positive for back pain, muscle cramps, numbness, tingling, Arthritis, restless legs, leg pain at night and leg pain with exertion; No joint pain Skin Skin: No yellowing of the eye or itchy eyes Neuro Neurology: Positive for weakness, numbness, tingling and restless legs Psych Psychiatric: Positive for anxiety and No depression Endo Endocrine: Positive for fatigue Aller/Imm Allergy/Immunologic: No itchy eyes Cholo/Lymp Hematologic/Lymphatic: Positive for easy bleeding and easy bruising Exam Const General: cooperative, healthy appearing and comfortable Nutritional Appearance: average body habitus Orientation: alert HENMT Head: normal to inspection Ears: hearing grossly normal bilaterally Eyes General: appearance normal, both eyes and all related structures Neck Neck: normal visual inspection Chest Chest palpation & inspection: normal inspection of the chest Resp Effort & Inspection: normal respiratory effort Cardio Rate: regular rate Rhythm: regular rhythm GI Inspection: normal to inspection Auscultation: normal bowel sounds Palpation: soft and nontender Assessment and Plan Assessment and Plan (1) Abdominal pain: Status: Acute (2) Family hx of colon cancer: Status: Acute (3) Heartburn: Status: Acute Plan: Melissa is a 54-year-old female patient here today for evaluation of change in her bowels over the past 6 months. Patient endorses right sided abdominal pain, foul-smelling bowel movements and alternating constipation and loose stool. Patient also with long history of heartburn and takes Protonix intermittently. Patient's mother was diagnosed with colon cancer in her late 60s and a few weeks after her diagnosis. Patient appears very anxious while talking about her symptoms and admits to feeling anxious about having endoscopies. She has never had a screening colonoscopy but she knows she needs to have one. She was willing to be scheduled today and will use Sutab bowel preparation. Patient was scheduled for both upper and lower endoscopies for evaluation of her GI tract. - EGD - Colonoscopy - Sutab prep - Follow-up after Medications: New sod sulf-pot chloride-mag sulf 1.479-0.188- 0.225 gram (Sutab) PO PER PKG DIR 24 tabs 0RF
[2025-02-23] MEDS: Lactated Ringers 1,000 ML 15 ML IV (07:05)
--- NOTE | 2025-02-23 07:24 | PRE.ANES_ITS ---
ASA Classification* ASA Classification ASA Classification: 2 Assessment & Plan Anesthesia* Anesthesia Assessment Anesthesia Assessment: Discussed sedation and/or anesthesia options, risks, benefits, and alternatives with patient/parents/legal guardian/POA. Questions invited. The patient/parents/legal guardian/POA seems to understand and agrees to proceed with anesthesia plan. Reviewed the physical assessment, medical history, allergy history and patient home medications list prior to surgery/procedure/anesthetic and documented any changes. Performed airway and anesthesia risk assessments. Anesthesia Type Anesthesia Type: MAC History Source History Obtained from:: Patient and Chart Anesthesia Focused Assessment* Temperature: 98.4 F Pulse Rate: 62 Blood Pressure: 99/62 Respiratory Rate: 18 Pulse Ox: 99 Oxygen Delivery Method: Room Air Airway Assessment Mouth opens: >3 cm Mallampati Score: I Teeth Condition: Dentures (Patient has top dentures. They will come out.) and Missing (Several missing teeth on the bottom. 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 When Was Last Pacemaker Check QUESTION #4 FULL TEXT: You/Your Family Experience fever (hyperthermia) with Anesthesia Last Oral Intake Last Oral intake: Last Oral Intake NPO since 05:00 02/23/25 06:58 Meds taken in AM with sips of Yes 02/23/25 06:58 water? Meds patient instructed to levothyroxine 02/23/25 06:58 take am of surgery Any additional information?: Yes Meds taken in AM with sips of water?: Yes PONV PONV - truck dock material mover: PONV - truck dock material mover Female Yes 02/17/25 15:31 HX of Motion Sickness No 02/17/25 15:31 HX of N/V After Surgery No 02/17/25 15:31 Non-Smoker Yes 02/17/25 15:31 Duration of Surgery greater No 02/17/25 15:31 than 60 minutes Number of Risk Factors 2 02/17/25 15:31 PONV Score Moderate Risk 02/17/25 15:31 Height & Weight Height & Weight: Anesthesia: Height & Weight Height 5 ft 7 in 02/23/25 06:58 Weight: 48 kg 02/23/25 06:58 Body Mass Index (BMI) 16.5 02/23/25 06:58 Respiratory Assessment Respiratory Assessment - truck dock material mover: Respiratory Tract Infection Hx - truck dock material mover Hx Respiratory Tract Infection No 02/17/25 15:31 STOP Sleep Apnea STOP Sleep Apnea - truck dock material mover: STOP Sleep Apnea - truck dock material mover Hx Hypertension No 02/17/25 15:31 Hx Sleep Apnea No 02/17/25 15:31 CPAP BIPAP Do you snore loudly (louder No 02/17/25 15:31 than talking or can be heard Do you often feel tired/ No 02/17/25 15:31 fatigued/ sleepy during daytime? Has anyone observed you stop No 02/17/25 15:31 breathing during sleep? STOP Results Negative 02/17/25 15:31 QUESTION #5 FULL TEXT : Do you snore loudly (louder than talking or can be heard through closed doors)? Tobacco Use History Tobacco Use History - truck dock material mover: Tobacco Use History - truck dock material mover Tobacco Use Smoking Status Former smoker 02/17/25 15:31 Hx Tobacco Use No 02/17/25 15:31 Years Smoking Packs Smoked per Day Smoking Cessation Date was Yes - quit smoking within 15 02/17/25 15:31 within the last 15 years years Hx Smoking Cessation Date Hx Smoking Cessation Counseling Hematologic Medial History Hematologic Hx - truck dock material mover: Hematologic Medical Hx - documentation consultant Hx of Blood Transfusion No 02/17/25 15:31 Hx of Transfusion in last 3 No 02/17/25 15:31 Months Date of Last Transfusion (if within last 3 months) Ever experience any problems No 02/17/25 15:31 with transfusion(s)? Specify any problems Hx of Preganancy in last 3 No 02/17/25 15:31 Months Nurse Filling Out Transfusion [email or web address] 02/17/25 15:31 & Questions: Date: 02/17/25 02/17/25 15:31 Time: 15:40 02/17/25 15:31 Patient unable to answer at this time (ie. confused, unrespo /Reproduction History /Reproductive History - truck dock material mover: /Reproductive Hx- truck dock material mover Hx Now No 02/17/25 15:31 Gestational Age (in weeks): EDC: Hx Hx Para Hx Section SAB No 02/17/25 15:31 Does the father of the baby or his family experience fever w Father of the baby Malignant Hypertension history comment Active Medications Active Medications: Current Medications Generic Name Dose Route Start Last Admin Trade Name Freq PRN Reason Stop Dose Admin Lactated Ringer's 1,000 mls @ 15 mls/hr 02/23/25 07:15 02/23/25 07:05 IV 15 mls/hr .Q48H DAVID Administration PFSH Medical History Wears glasses Depression Anxiety Former smoker History of irregular heartbeat History of echocardiogram Cardiology follow-up encounter Collapsed lung Thyroid disease Pneumonia Chronic bronchitis Cataracts, bilateral Atrial fibrillation Seasonal allergies IBS (irritable bowel syndrome) Mixed hyperlipidemia Acquired hypothyroidism Neuropathy Chronic pain syndrome Moderate persistent asthma without complication COPD (chronic obstructive pulmonary disease) Atrial tachycardia PTSD (post-traumatic stress disorder) Anxiety disorder Moderate episode of recurrent major depressive disorder Home Medications ?Medication ?Instructions ?Recorded ?Last Taken ?Type budesonide-formoterol HFA 160 2 puff inhalation Q12H 1 Unknown History mcg-4.5 mcg/actuation aerosol inhaler (Symbicort) clonazepam 0.5 mg tablet (Klonopin) 0.5 mg PO BID 06/0102/22/25 History gabapentin 600 mg tablet 600 mg PO TID 01/06/2502/22 History levalbuterol tartrate 45 2 puff inhalation Q4-6H PRN 01/06/25 Unknown History mcg/actuation aerosol inhaler shortness of breath levothyroxine 75 mcg capsule 75 mcg PO QDAY 01/06/25 1 04/25/24 History metoprolol succinate 50 mg 50 mg PO QDAY 01/06/2502/05 History tablet,extended release 24 hr montelukast 10 mg tablet 10 mg PO QDAY 01/06/2502/16 History nabumetone 500 mg tablet 500 mg PO BID 01/06/2502/22 History pantoprazole 40 mg tablet,delayed 40 mg PO QDAY Unknown History release paroxetine HCl 30 mg tablet 30 mg PO QDAY 01/06/25 History rosuvastatin 5 mg tablet 5 mg PO QDAY 01/06/25 History sodium sul 1.479 gram-potas ch See Rx Instructions PO PER PKG DIR 01/12/25 02/22/25 Rx 0.188 gram-magnes sul 0.225 gram #24 tabs tablet (Sutab) Allergy/AdvReac Type Severity Reaction Status Date / Time amitriptyline AdvReac Mild Nausea Verified 02/23/25 06:54 bupropion AdvReac Mild Other Verified 02/23/25 06:54 hydroxyzine (From Vistaril) AdvReac Mild Other Verified 02/23/25 06:54 meloxicam (From Mobic) AdvReac Mild Other Verified 02/23/25 06:54 oxycodone AdvReac Mild Vomiting Verified 02/23/25 06:54 sertraline (From Zoloft) AdvReac Mild Other Verified 02/23/25 06:54 Family History Grandmother Alcoholism Hypertension Sister Alcoholism Liver disease Father Arthritis Autoimmune disorder Thrombus Myocardial infarction Heart disease Diabetes Mother Arthritis Autoimmune disorder Transfusion history Bowel disease Colon cancer Diabetes Liver disease Surgical History History of cardiac catheterization Hx of chest tube placement History of cataract surgery H/O tubal ligation Hx of appendectomy Hx of removal of ovary H/O: hysterectomy Hx of tonsillectomy H/O right heart catheterization Social History Smoking Status: Former smoker quit date: 08/13/23 pack-years: 35 alcohol intake: never substance use type: marijuana what type of physical activity do you participate in: walking and bicycling Review of Systems (Anesthesia) ROS Narrative System reviewed and no additional complaints, except as documented.
--- NOTE | 2025-02-23 07:30 | COLBX_PTH ---
PATIENT: MELISSA GALVAN LOC: EN U#:[id number] AGE/SX: 54/F ROOM: RE02/23/[address]: Dr. Kenny Lala DO : 1970 BED: DIS: 02/23/2025 SPEC #: [id number] RECD: 02/23/25 08:54 STATUS: REBEKAH REQ #: [id number] MELINDA: 02/23/25 07:[address]: Kenny Lala DEPT: SURGICAL PATHOLOGY RECD BY: Thang Nicole ENTERED: 02/23/25 10:54 SP TYPE: COLON BX OTHR DR: Francia Richard, BLEACH MACHINE OPERATOR-C Tissues: A - Gastric mucous membrane B - Esophagus, NOS C - Sigmoid colon biopsy Procedures: Immunohistochemical Stains Surgery Specimen Level IV HEADER OPERATION: Colonoscopy with polypectomy, EGD with biopsy and dilatation PRE-OP DIAGNOSIS: Family history of colon cancer, heartburn, abdominal pain TISSUE SUBMITTED: A- Gastric body biopsy, B- Random esophagus biopsy, C- Sigmoid polyp MICROSCOPIC DIAGNOSIS A. Stomach, body, biopsy: - Oxyntic mucosa with mild chronic inflammation with superficial reactive changes - No morphologic evidence of Helicobacter pylori organisms identified on H&E or immunostained sections B. Esophagus, random, biopsy: - Benign squamous epithelium with no pathologic change C. Colon, sigmoid polyp, biopsy: - Tubular adenoma MICROSCOPIC DESCRIPTION Slides are reviewed. All matched controls reacted appropriately. These tests were developed and their performance characteristics determined by [facility]. They may not have been cleared or approved by the [place]. Food and Drug Administration. The FDA has determined that such clearance or approval is not necessary. The above immunohistochemical markers are viewed by the Pathologist. GROSS DESCRIPTION A. Received in fixative is one container labeled with the patient's name and designated Gastric body biopsy. The specimen consists of three irregular fragments of isaac tissue that measure <0.1 to 0.6 cm. Smallest fragment may not survive processing. The specimen is totally submitted in one cassette. B. Received in fixative is one container labeled with the patient's name and designated Random esophagus biopsy. The specimen consists of two irregular fragments of isaac tissue, each measuring 0.3 cm. The specimen is totally submitted in one cassette. C. Received in fixative is one container labeled with the patient's name and designated Sigmoid polyp. The specimen consists of multiple irregular fragments of isaac tissue that in aggregate measure 0.8 x 0.5 x 0.2 cm. The specimen is totally submitted in one cassette. NH 02/23/2025 CPT:92443k1,89991
--- NOTE | 2025-02-23 08:17 | OP.PROVAT_ITS ---
02/23/2025 Kumar Gomez Re : Upper GI endoscopy procedure for Marina José Dear JoseM anuel This procedure was performed on Sunday, February 23, 2025. My impressions and recommendations are as follows: Impressions : - Esophageal mucosal changes suggestive of eosinophilic esophagitis. Dilated. - Acute gastritis. Biopsied. - No gross lesions in the entire examined duodenum. - Biopsies were taken with a cold forceps for evaluation of eosinophilic esophagitis. Recommendations : - Discharge patient to home. - Resume previous diet. - Continue present medications. - Await pathology results. My findings are described in the full procedure note, which is enclosed. If I can be of further assistance, please feel free to contact me at . Sincerely, Kenny Lala, 02/23/2025 8:17:09 AM This report has been signed electronically.
--- NOTE | 2025-02-23 08:17 | OP.EGD_ITS ---
Patient Name: Marina José Procedure Date: 02/23/2025 7:33 AM Date of : 1970 Age: 54 Procedure: Upper GI endoscopy Indications: Epigastric abdominal pain, Dysphagia Providers: Kenny Lala DO Referring MD: Kumar Gomez Medicines: Monitored Anesthesia Care Patient Profile: This is a 54 year old female. Refer to note in patient chart for documentation of history and physical. Patient has symptoms of chronic abdominal distention, chronic epigastric abdominal pain, dysphagia with solids and chronic nausea. Complications: No immediate complications. Procedure: Pre-Anesthesia Assessment: - Prior to the procedure, a History and Physical was performed, and patient medications and allergies were reviewed. The patient is competent. The risks and benefits of the procedure and the sedation options and risks were discussed with the patient. All questions were answered and informed consent was obtained. Patient identification and proposed procedure were verified by the physician. Mental Status Examination: alert and oriented. Airway Examination: normal oropharyngeal airway and neck mobility. Respiratory Examination: clear to auscultation. CV Examination: normal. Prophylactic Antibiotics: The patient does not require prophylactic antibiotics. Prior Anticoagulants: The patient has taken no anticoagulant or antiplatelet agents. ASA Grade Assessment: II - A patient with mild systemic disease. After reviewing the risks and benefits, the patient was deemed in satisfactory condition to undergo the procedure. The anesthesia plan was to use monitored anesthesia care (MAC). Immediately prior to administration of medications, the patient was re-assessed for adequacy to receive sedatives. The heart rate, respiratory rate, oxygen saturations, blood pressure, adequacy of pulmonary ventilation, and response to care were monitored throughout the procedure. The physical status of the patient was re-assessed after the procedure. After obtaining informed consent, the endoscope was passed under direct vision. Throughout the procedure, the patient's blood pressure, pulse, and oxygen saturations were monitored continuously. The pediatric colonoscope was introduced through the mouth, and advanced to the fourth part of the duodenum. Small bowel enteroscopy was deemed necessary. The upper GI endoscopy was accomplished without difficulty. The patient tolerated the procedure well. Scope In: 7:42:53 AM Scope Out: 7:48:56 AM Total Procedure Duration Time 0 hours 6 minutes 3 seconds Findings: Mucosal changes including ringed esophagus were found in the middle third of the esophagus. Biopsies were obtained from the proximal and distal esophagus with cold forceps for histology of suspected eosinophilic esophagitis. Verification of patient identification for the specimen was done. Estimated blood loss was minimal. A guidewire was placed and the scope was withdrawn. Dilation was performed with a Savary dilator with no resistance at 57 Fr. The dilation site was examined and showed. Estimated blood loss was minimal. Patchy mild inflammation characterized by erythema was found in the gastric body. Biopsies were taken with a cold forceps for histology. Verification of patient identification for the specimen was done. Biopsies were taken with a cold forceps for Helicobacter pylori testing. Verification of patient identification for the specimen was done. Estimated blood loss was minimal. No gross lesions were noted in the entire examined duodenum. Impression: - Esophageal mucosal changes suggestive of eosinophilic esophagitis. Dilated. - Acute gastritis. Biopsied. - No gross lesions in the entire examined duodenum. - Biopsies were taken with a cold forceps for evaluation of eosinophilic esophagitis. Recommendation: - Discharge patient to home. - Resume previous diet. - Continue present medications. - Await pathology results. Procedure Code(s): --- Professional --- 34100, Esophagogastroduodenoscopy, flexible, transoral; with insertion of guide wire followed by passage of dilator(s) through esophagus over guide wire 48013, 59,51, Small intestinal endoscopy, enteroscopy beyond second portion of duodenum, not including ileum; with biopsy, single or multiple CPT copyright 2021 [employer]. All rights reserved. The codes documented in this report are preliminary and upon integration software developer review may be revised to meet current compliance requirements. Kenny Lala DO 02/23/2025 8:17:09 AM This report has been signed electronically. Number of Addenda: 0 Note Initiated On: 02/23/2025 7:33 AM
--- NOTE | 2025-02-23 08:18 | PCM.POST.ANE ---
Anesthesia: Postop Eval I Current Vital Signs Temperature: 97.7 F Pulse Rate: 64 Blood Pressure: 86/59 Respiratory Rate: 16 Pulse Ox: 100 Oxygen Delivery Method: Room Air Assessment Airway patent: Yes Spontaneous unlabored respirations: Yes Mental status: Awake nausea: No Vomiting: No Anesthesia Complication: No Fluid Hydration Crystalloid volume administer (ml): 900 Total IV fluid infused: 900 Progress Note Anesthesia document: Postop Eval 1 completed: Yes
--- NOTE | 2025-02-23 08:20 | OP.COLON_ITS ---
Patient Name: Marina José Procedure Date: 02/23/2025 7:49 AM Date of : 1970 Age: 54 Procedure: Colonoscopy Indications: Screening for colorectal malignant neoplasm Providers: Kenny Lala DO Referring MD: Kumar Gomez Medicines: Monitored Anesthesia Care Patient Profile: This is a 54 year old female. Refer to note in patient chart for documentation of history and physical. Patient has symptoms of chronic abdominal distention, chronic epigastric abdominal pain, dysphagia with solids and chronic nausea. Last Colonoscopy: several years ago. Complications: No immediate complications. Procedure: Pre-Anesthesia Assessment: - Prior to the procedure, a History and Physical was performed, and patient medications and allergies were reviewed. The patient is competent. The risks and benefits of the procedure and the sedation options and risks were discussed with the patient. All questions were answered and informed consent was obtained. Patient identification and proposed procedure were verified by the physician. Mental Status Examination: alert and oriented. Airway Examination: normal oropharyngeal airway and neck mobility. Respiratory Examination: clear to auscultation. CV Examination: normal. Prophylactic Antibiotics: The patient does not require prophylactic antibiotics. Prior Anticoagulants: The patient has taken no anticoagulant or antiplatelet agents. ASA Grade Assessment: II - A patient with mild systemic disease. After reviewing the risks and benefits, the patient was deemed in satisfactory condition to undergo the procedure. The anesthesia plan was to use monitored anesthesia care (MAC). Immediately prior to administration of medications, the patient was re-assessed for adequacy to receive sedatives. The heart rate, respiratory rate, oxygen saturations, blood pressure, adequacy of pulmonary ventilation, and response to care were monitored throughout the procedure. The physical status of the patient was re-assessed after the procedure. After I obtained informed consent, the scope was passed under direct vision. Throughout the procedure, the patient's blood pressure, pulse, and oxygen saturations were monitored continuously. The pediatric colonoscope was introduced through the anus and advanced to the cecum, identified by appendiceal orifice and ileocecal valve. The colonoscopy was performed without difficulty. The patient tolerated the procedure well. The quality of the bowel preparation was poor. The ileocecal valve, appendiceal orifice, and rectum were photographed. Scope In: 7:51:27 AM Scope Withdrawal Time 0 hours 7 minutes 34 seconds Scope Out: 8:06:56 AM Total Procedure Duration Time 0 hours 15 minutes 29 seconds Findings: The perianal and digital rectal examinations were normal. Stool was found in the entire colon. An 8 mm polyp was found in the recto-sigmoid colon. The polyp was sessile. The polyp was removed with a hot snare. Resection and retrieval were complete. Verification of patient identification for the specimen was done. Estimated blood loss was minimal. Impression: - Preparation of the colon was poor. - Stool in the entire examined colon. - One 8 mm polyp at the recto-sigmoid colon, removed with a hot snare. Resected and retrieved. Recommendation: - Repeat colonoscopy because the bowel preparation was poor. - Continue present medications. Procedure Code(s): --- Professional --- 90911, Colonoscopy, flexible; with removal of tumor(s), polyp(s), or other lesion(s) by snare technique CPT copyright 2021 [employer]. All rights reserved. The codes documented in this report are preliminary and upon bed spring maker review may be revised to meet current compliance requirements. Kenny Lala DO 02/23/2025 8:19:53 AM This report has been signed electronically. Number of Addenda: 0 Note Initiated On: 02/23/2025 7:49 AM
--- NOTE | 2025-02-23 08:20 | OP.PROVAT_ITS ---
02/23/2025 Kumar Gomez Re : Colonoscopy procedure for Marina José Dear Jose Manuel This procedure was performed on Sunday, February 23, 2025. My impressions and recommendations are as follows: Impressions : - Preparation of the colon was poor. - Stool in the entire examined colon. - One 8 mm polyp at the recto-sigmoid colon, removed with a hot snare. Resected and retrieved. Recommendations : - Repeat colonoscopy because the bowel preparation was poor. - Continue present medications. My findings are described in the full procedure note, which is enclosed. If I can be of further assistance, please feel free to contact me at . Sincerely, Kenny Lala, 02/23/2025 8:19:53 AM This report has been signed electronically.
--- NOTE | 2025-02-23 16:32 | PCM.POSTANE2 ---
Anesthesia Postop Eval I Sum Postop Eval Completion status Anesthesia document: Postop Eval 1 completed: Yes Anesthesia Postop Eval I Summary Anesthesia Postop Eval I Summary: Anesthesia Postop Eval I: Assessment Summary Airway patent Yes 02/23/25 08:18 [email or web address] Spontaneous unlabored Yes 02/23/25 08:18 [email or web address] respirations Mental status Awake 02/23/25 08:18 [email or web address] nausea No 02/23/25 08:18 [email or web address] Vomiting No 02/23/25 08:18 [email or web address] Anesthesia Postop Eval I: Fluid Summary Crystalloid volume administer 900 02/23/25 08:18 [email or web address] (ml) Colloids volume administered ( ml) Blood Product volume administered (ml) Total IV fluid infused 900 02/23/25 08:18 [email or web address] Anesthesia Postop Eval I: Summary Notes Anesthesia Complication No 02/23/25 08:18 [email or web address] Anesthesia Complication Comment: Post-operative progress note Anesthesia: Postop Eval II Evaluation Mental status: Awake and Calm Pain Level: 0 nausea: No Vomiting: No
== END 2025-02-23 08:58 | disposition home or self-care (01) ==
LOC: EN 06:04 → AC 06:06
PROVIDERS: PCP Registered Nurse; Referring Provider Registered Nurse; Visit Provider Internal Medicine Gastroenterology
PROC: 0DJD8ZZ Inspection of Lower Intestinal Tract, Via Natural or Artificial Opening Endoscopic (ICD-10-PCS; CPT 45378; principal; 2025-02-23 07:25)
DX: Z12.11 Encounter for screening for malignant neoplasm of colon (principal); J44.9 Chronic obstructive pulmonary disease, unspecified; I48.91 Unspecified atrial fibrillation; K29.00 Acute gastritis without bleeding; E78.2 Mixed hyperlipidemia; R13.10 Dysphagia, unspecified; K63.5 Polyp of colon; Z79.51 Long term (current) use of inhaled steroids; Z87.891 Personal history of nicotine dependence; Z79.899 Other long term (current) drug therapy; Z85.038 Personal history of other malignant neoplasm of large intestine; E03.9 Hypothyroidism, unspecified; Z79.890 Hormone replacement therapy; F41.9 Anxiety disorder, unspecified; F32.A Depression, unspecified; Z98.51 Tubal ligation status; Z90.49 Acquired absence of other specified parts of digestive tract; Z90.710 Acquired absence of both cervix and uterus; R10.13 Epigastric pain; K22.89 Other specified disease of esophagus; K29.50 Unspecified chronic gastritis without bleeding
CPT/HCPCS: 45385; 43248; 43239; 88305; 88342; C1769; J2405